=== PATIENT | female | born 1985 | race Caucasian/White ===

== ENCOUNTER 2017-09-19 12:57 | Emergency (ER) | payer OTHER, SELFPAY | END 2017-09-19 15:48 | disposition home or self-care (01) | PROVIDERS: Emergency Provider Emergency Medicine; Family Provider Emergency Medicine; Visit Provider Emergency Medicine | DX: I80.01 Phlebitis and thrombophlebitis of superficial vessels of right lower extremity (principal); J45.909 Unspecified asthma, uncomplicated; F41.8 Other specified anxiety disorders; I10 Essential (primary) hypertension; Z88.0 Allergy status to penicillin; Z88.2 Allergy status to sulfonamides | CPT/HCPCS: 80053; 85025; 93971; 99283 ==

== ENCOUNTER 2017-10-07 09:43 | Emergency (ER) | payer MEDICAID, SELFPAY ==
[2017-10-07 09:50] VITALS: BP 103/50; PULSE 80; RESP 20; TEMP 36.6; O2SAT 98; BMI 30.4
--- NOTE | 2017-10-07 09:59 | XR_ITS ---
XR chest 2V HISTORY: ITS.REASON: COUGH ORDERING PHYSICIAN: Silvina Liu MD PATIENT AGE: 32 years COMPARISON: To 1017 FINDINGS: The cardiomediastinal silhouette and pulmonary vascularity are within normal limits. Increased density is present in right upper lobe with air bronchograms consistent with pneumonia. The remaining lungs are clear aside from a granuloma in the left lower lobe. No obvious effusion. Mild adjacent change thoracic spine. IMPRESSION: Right upper lobe pneumonia In the right upper lobe consistent with pneumonia..
--- NOTE | 2017-10-07 10:03 | HMH.EDGENADL ---
ED Disposition Clinical Impression: Strep pharyngitis Disposition: Home, Self-Care Condition on Discharge: Good Instructions: DI for Strep Throat Additional Instructions: Small and frequent sips of fluids, Rx Keflex (you state you have tolerated this medication in the past) and see your family doctor in one week. Prescriptions: cephALEXin [Keflex 500mg Cap] 500 mg PO QID #40 cap Time of Disposition: 10:54 - Critical Care Critical Care Time: No Attestation: On , the high probability of a clinically significant, sudden or life threatening deterioration of the following system(s) required my full and direct attention, intervention and personal management. The time I documented below is in addition to time spent performing reported procedures but includes the following listed in this critical care notation. Medical Decision Making - Medical Records Medical records reviewed: Yes: I reviewed the patient's medical records. Vital Signs: 10/07/17 09:50 Temperature 97.9 F Temperature Source Oral Pulse Rate [Right Radial] 80 Respiratory Rate 20 Blood Pressure [Right Arm] 103/50 Blood Pressure Mean [Right Arm] 67 02 Sat by Pulse Oximetry 98 Oxygen Delivery Method Room Air - Lab Data Lab results reviewed: Yes: I reviewed the patient's lab results. Lab Results 10/07/17 10:00: Influenza Type A Ag Negative, Influenza Type B Ag Negative, Group A Strep Rapid Positive A Orders (Tests/Meds): ED MEDICATIONS Generic Name Dose Route Start Last Admin Trade Name Freq PRN Reason Stop Dose Admin Sodium Chloride 10 ml 10/07/17 10:11 Saline Flush 10ml Syringe IV 11/06/17 10:10 NEEDED PRN Maintain IV Site Discontinued Medications Generic Name Dose Route Start Last Admin Trade Name Freq PRN Reason Stop Dose Admin Dexamethasone Sodium Phosphate 10 mg 10/07/17 10:11 10/07/17 10:33 Decadron 4mg/Ml 5ml Mdv IM 10/07/17 10:12 10 mg ONCE ONE Administration ORDERS Category Date Time Status Chest XR 2 view (NOT portable) [XR chest 2V] Stat Exams 10/07/17 09:59 Taken - Radiology Data #1 Image(s): Chest Image Reviewed: Yes I reviewed the patient's radiology image Preliminary Findings: Normal/NAD, No Infiltrates Seen - Alfredo Inquiry Pt receiving controlled substance: No General Adult HPI - General Chief complaint: PAIN Stated complaint: can't swallow eat or drink Time Seen by Provider: 10/07/17 10:05 Mode of Arrival: Ambulatory Limitations: No Limitations Description of Symptoms (Recalled from ER Triage Doc. by RN): sore throat and prod cough x 2days - History of Present Illness HPI narrative: Sore throat, mild cough, no myalgias, no chills. No neck pain or vomiting. No fever. Hurts when she drinks fluids. No drooling. No cephalgia. - Related Data Previous Rx's Medication Instructions Recorded cephALEXin [Keflex 500mg Cap] 500 mg PO QID #40 cap 10/07/17 Allergies Allergy/AdvReac Type Severity Reaction Status Date / Time aspirin [ASPIRIN] Allergy Unknown Verified 10/07/17 10:03 iodine [IODINE] Allergy Unknown Verified 10/07/17 10:03 labetalol [LABETALOL] Allergy Unknown Verified 10/07/17 10:03 Penicillins [PENICILLINS] Allergy Unknown Verified 10/07/17 10:03 Sulfa (Sulfonamide Allergy Unknown Verified 10/07/17 10:03 Antibiotics) [SULFA (SULFONAMIDE ANTIBIOTICS)] triamcinolone [TRIAMCINOLONE] Allergy Unknown Verified 10/07/17 10:03 SHELLFISH (FOOD) Allergy Unknown I-HIVES Uncoded 09/16/17 15:01 ROS Obtained: Yes All systems reviewed & no additional complaints Physical Exam - General General appearance: alert, in no apparent distress, obese - Head Head exam: atraumatic, normocephalic, normal inspection - Eye Eye exam: Present: normal appearance, PERRL, EOMI - ENT ENT exam: Present: mucous membranes moist, TM's normal bilaterally, normal external ear exam, other (Positive erythema, no exudates. No lymphad
--- NOTE | 2017-10-07 10:08 | ED_ITS ---
ED Disposition Clinical Impression: Strep pharyngitis Disposition: Home, Self-Care Condition on Discharge: Good Instructions: DI for Strep Throat Additional Instructions: Small and frequent sips of fluids, Rx Keflex (you state you have tolerated this medication in the past) and see your family doctor in one week. Prescriptions: cephALEXin [Keflex 500mg Cap] 500 mg PO QID #40 cap Time of Disposition: 10:54 - Critical Care Critical Care Time: No Attestation: On , the high probability of a clinically significant, sudden or life threatening deterioration of the following system(s) required my full and direct attention, intervention and personal management. The time I documented below is in addition to time spent performing reported procedures but includes the following listed in this critical care notation. Medical Decision Making - Medical Records Medical records reviewed: Yes: I reviewed the patient's medical records. Vital Signs: 10/07/17 09:50 Temperature 97.9 F Temperature Source Oral Pulse Rate [Right Radial] 80 Respiratory Rate 20 Blood Pressure [Right Arm] 103/50 Blood Pressure Mean [Right Arm] 67 02 Sat by Pulse Oximetry 98 Oxygen Delivery Method Room Air - Lab Data Lab results reviewed: Yes: I reviewed the patient's lab results. Lab Results 10/07/17 10:00: Influenza Type A Ag Negative, Influenza Type B Ag Negative, Group A Strep Rapid Positive A Orders (Tests/Meds): ED MEDICATIONS Generic Name Dose Route Start Last Admin Trade Name Freq PRN Reason Stop Dose Admin Sodium Chloride 10 ml 10/07/17 10:11 Saline Flush 10ml Syringe IV 11/06/17 10:10 NEEDED PRN Maintain IV Site Discontinued Medications Generic Name Dose Route Start Last Admin Trade Name Freq PRN Reason Stop Dose Admin Dexamethasone Sodium Phosphate 10 mg 10/07/17 10:11 10/07/17 10:33 Decadron 4mg/Ml 5ml Mdv IM 10/07/17 10:12 10 mg ONCE ONE Administration ORDERS Category Date Time Status Chest XR 2 view (NOT portable) [XR chest 2V] Stat Exams 10/07/17 09:59 Taken - Radiology Data #1 Image(s): Chest Image Reviewed: Yes I reviewed the patient's radiology image Preliminary Findings: Normal/NAD, No Infiltrates Seen - Alfredo Inquiry Pt receiving controlled substance: No General Adult HPI - General Chief complaint: PAIN Stated complaint: can't swallow eat or drink Time Seen by Provider: 10/07/17 10:05 Mode of Arrival: Ambulatory Limitations: No Limitations Description of Symptoms (Recalled from ER Triage Doc. by RN): sore throat and prod cough x 2days - History of Present Illness HPI narrative: Sore throat, mild cough, no myalgias, no chills. No neck pain or vomiting. No fever. Hurts when she drinks fluids. No drooling. No cephalgia. - Related Data Previous Rx's Medication Instructions Recorded cephALEXin [Keflex 500mg Cap] 500 mg PO QID #40 cap 10/07/17 Allergies Allergy/AdvReac Type Severity Reaction Status Date / Time aspirin [ASPIRIN] Allergy Unknown Verified 10/07/17 10:03 iodine [IODINE] Allergy Unknown Verified 10/07/17 10:03 labetalol [LABETALOL] Allergy Unknown Verified 10/07/17 10:03 Penicillins [PENICI
[2017-10-07 10:15] LABS: Strep Scrn Group A (Rapid) Positive (Negative)
[2017-10-07 10:58] VITALS: BP 128/65; PULSE 80; RESP 16; TEMP 36.8; O2SAT 97
== END 2017-10-07 10:57 | disposition home or self-care (01) ==
PROVIDERS: Emergency Provider Emergency Medicine; Family Provider Emergency Medicine; PCP Emergency Medicine
DX: J02.0 Streptococcal pharyngitis (principal)
CPT/HCPCS: 71046; 87275; 87276; 87430; 96372; 99283

== ENCOUNTER → 2017-12-25 07:48 | Outpatient (CLI) | payer MEDICAID, SELFPAY ==
--- NOTE | 2017-12-25 07:50 | CA_ITS ---
PROCEDURE: 2-D M-mode and color Doppler study INDICATIONS FOR THE TEST: Chest pain COPD Heart Murmur Tobacco Smoking Palpitations Fatigue Syncope Edema+ Hypertension+Diabetes Mellitus Rheumatic Fever SOB MCNAMARA Obesity Hyperlipidemia Family History HD Additional History PATIENT INFORMATION HEIGHT:68 WEIGHT:311 GENDER: Female B/P:116/47 2-D/M-MODE INTERPRETATION: 2-D MEASUREMENTS OBSERVED VALUES IN CMS Right Ventricular Dimension (RVDd) 1.4 Interventricular Septum (Thickness)(IVsd) 0.9 Left Ventricular Internal Dimensions(LVIDd) 4.8 Left Ventricular Posterior Wall (Thickness)(LVPWd) 1.1 Aortic Root 2.8 Aortic Cusp Separation 2.0 Left Atrial Dimensions (LAD) 4.5 2D 1. Left atrium is qualitatively mildly enlarged, left ventricle is normal size, visually estimated ejection fraction 55% with no obvious regional wall motion abnormality. 2. The right atrium and right ventricle are normal size and contractility. 3. The aortic, mitral and tricuspid valve are grossly normal. 4. The pulmonic valve is poorly visualized. 5. No significant pericardial effusion noted. DOPPLER INTERROGATION: Doppler interrogation of the aortic, mitral and tricuspid valvular presence of mild mitral and tricuspid regurgitation, tricuspid and jet velocity insufficient for calculation of the right ventricular systolic pressure. Diastolic parameters are within normal range. CONCLUSION: 1. Mildly enlarged left atrium, normal left ventricular size, visually estimated ejection fraction 55% with no obvious regional wall motion abnormality. 2. Mild mitral and tricuspid regurgitation 3. No significant pericardial effusion noted.
--- NOTE | 2017-12-25 07:50 | AS_ITS ---
Renal Arterial Duplex Indications: 405.91 Unspecified renovascular hypertension. IMPRESSIONS 1. The right renal artery appears normal. 2. The left renal artery appears normal. Complete renal arterial duplex. Duplex scan and Doppler flow study including spectral analysis, color and calzada scale imaging. Height: Height: 172.7cm. Height: 68in. Weight: Weight: 125.2kg. Weight: 275.4lb. Body mass index: BMI: 42kg/m^2. Body surface area: BSA: 2.51m^2. Location: Vascular laboratory. Patient status: Outpatient. Tables: Arterial flow: + +--------+--------+ Location V sys V ed + +--------+--------+ Right renal - proximal 155cm/s 56.6cm/s + +--------+--------+ Right renal - mid 171cm/s 53.8cm/s + +--------+--------+ Right renal - distal 135cm/s 50.8cm/s + +--------+--------+ Left renal - proximal 179cm/s 64.2cm/s + +--------+--------+ Left renal - mid 166cm/s 57.5cm/s + +--------+--------+ Left renal - distal 81.5cm/s 35.2cm/s + +--------+--------+ Right renal - Origin 120cm/s 40cm/s + +--------+--------+ Left renal - Origin 203cm/s 51cm/s + +--------+--------+ Aorta - mid 118cm/s 26cm/s + +--------+--------+ Renal anatomy: + +------+------+ Left Right + +------+------+ Long axis 10.5cm 11.6cm + +------+------+ Short axis 5.7cm 5.9cm + +------+------+ Velocity ratios: + +-----+ V sys + +-----+ Right renal/aortic 1.4 + +-----+ Left renal/aortic 1.7 + +-----+ (Report amended ) Electronically signed by: Mason Louise [id number]
== END ==
PROVIDERS: Family Provider Emergency Medicine; PCP Emergency Medicine; Visit Provider Internal Medicine
DX: E66.9 Obesity, unspecified (principal); R06.09 Other forms of dyspnea; E78.4 Other hyperlipidemia; I10 Essential (primary) hypertension; R42 Dizziness and giddiness
CPT/HCPCS: 93306; 93976

== ENCOUNTER → 2018-02-27 10:29 | Outpatient (CLI) | payer MEDICAID, SELFPAY ==
[2018-02-27 10:57] LABS: Basophils % 0.4 % (0.1-2.0); Eosinophils # 0.1 K/mm3 (0.0-0.4); Eosinophils % 0.9 % (0.1-12.0); Hemoglobin 12.5 g/dL (12.2-16.2); Lymphocytes # 2.4 K/mm3 (0.7-4.5); Lymphocytes % 27.2 K/mm3 (10-50); Mean Corpuscular HGB Conc 32.9 g/dL (31.8-35.4); Mean Corpuscular Hemoglobin 27.9 pg (27.0-31.2); Mean Corpuscular Volume 84.9 fl (81-99); Monocytes # 0.3 K/mm3 (0.1-1.0); Monocytes % 3.4 % (1.7-9.3); Neutrophils % 68.1 % (37.0-80.0); Platelet Count 359 K/mm3 (142-424); Red Blood Count 4.47 M/mm3 (4.20-5.40); Red Cell Distribution Width 12.2 % (11.5-17.5); White Blood Count 8.8 K/mm3 (4.8-10.8)
[2018-02-27 11:57] LABS: Alanine Aminotransferase 33 U/L (12-78); Albumin Level 3.7 gm/dL (3.4-5.0); Alkaline Phosphatase 74 U/L (46-116); Anion Gap 14.4 mEq/L (5-15); Aspartate Amino Transferase 26 U/L (15-37); Bilirubin,Total 0.2 mg/dL (0.2-1.0); Blood Urea Nitrogen 19 mg/dL (7-18); C-Reactive Protein 1.8 mg/L (0.0-0.9); Calcium 9.2 mg/dL (8.5-10.1); Carbon Dioxide 25 mmol/L (21.0-32.0); Chloride 105 mmol/L (98-107); Creatinine,Serum 1.26 mg/dL (0.55-1.02); Estimated Glomerular Filt Rate 49 ml/min (>60); GFR (African American) 59 ML/MIN (>60); Globulin 3.7 gm/dl (1.3-3.2); Glucose 92 mg/dL (74-106); Potassium 4.4 mmoL/L (3.5-5.1); Sodium 140 mmol/L (136-145); Total Protein,Serum 7.4 gm/dL (6.4-8.2); Uric Acid 7.8 mg/dL (2.6-7.2)
[2018-02-27 12:06] LABS: Erythrocyte Sedimentation Rate 22 mm/hr (0-20)
[2018-02-28 18:34] LABS: RA Latex Turbid. <10.0 IU/mL (0.0-13.9)
[2018-03-01 17:29] LABS: Anti-Cyclic Citrullinated Pept 5 units (0-19)
[2018-03-02 14:20] LABS: Anti-Jo-1 <0.2 AI (0.0-0.9); Anti-Smith Antibody <0.2 AI (0.0-0.9); Antichromatin Antibodies <0.2 AI (0.0-0.9); Antiscleroderma-70 Antibodies <0.2 AI (0.0-0.9); RNP Antibodies <0.2 AI (0.0-0.9); Sjogren's Anti-SS-A <0.2 AI (0.0-0.9); Sjogren's Anti-SS-B <0.2 AI (0.0-0.9)
[2018-03-03 06:10] LABS: Anti-Centromere B Antibodies <0.2 AI (0.0-0.9); Anti-DNA (DS) Ab Qn 1 IU/mL (0-9)
[2018-03-03 14:38] LABS: Antinuclear Antibodies, IFA Negative (.)
== END ==
PROVIDERS: Family Provider Emergency Medicine; PCP Emergency Medicine; Visit Provider Podiatrist
DX: M79.671 Pain in right foot (principal); M79.672 Pain in left foot
CPT/HCPCS: 36415; 80053; 84550; 85025; 85651; 86038; 86140; 86200; 86431

== ENCOUNTER → 2018-02-27 10:46 | Outpatient (CLI) | payer MEDICAID, SELFPAY ==
--- NOTE | 2018-02-27 10:52 | XR_ITS ---
XR ankle wt bearing RT min 3V HISTORY: ITS.REASON: pain ORDERING PHYSICIAN: Cassandra Lange DPM PATIENT AGE: 32 years Comparison: None FINDINGS: No fracture or dislocation. No lytic or blastic change. There is normal mineralization.. The joint spaces are well-preserved. No significant degenerative/arthritic changes. No erosive changes evident. IMPRESSION: Negative ankle, no acute finding
--- NOTE | 2018-02-27 10:52 | XR_ITS ---
XR foot wt bearing LT 3V HISTORY: ITS.REASON: pain ORDERING PHYSICIAN: Cassandra Lange DPM PATIENT AGE: 32 years COMPARISON: None FINDINGS: No fracture or dislocation. No lytic or blastic change. There is normal mineralization.. The joint spaces are well-preserved. No significant degenerative/arthritic changes. No erosive changes evident. There is a 9 mm calcaneal spur nonspecific IMPRESSION: Calcaneal spur otherwise negative
--- NOTE | 2018-02-27 10:52 | XR_ITS ---
XR foot wt bearing RT 3V HISTORY: ITS.REASON: pain ORDERING PHYSICIAN: Cassandra Lange DPM PATIENT AGE: 32 years COMPARISON: None FINDINGS: No fracture or dislocation. No lytic or blastic change. There is normal mineralization.. The joint spaces are well-preserved. No significant degenerative/arthritic changes. No erosive changes evident. 6 mm calcaneal spur nonspecific IMPRESSION: Small calcaneal spur otherwise negative
--- NOTE | 2018-02-27 10:52 | XR_ITS ---
XR ankle wt bearing LT min 3V HISTORY: ITS.REASON: pain ORDERING PHYSICIAN: Cassandra Lange DPM PATIENT AGE: 32 years Comparison: None FINDINGS: No fracture or dislocation. No lytic or blastic change. There is normal mineralization.. The joint spaces are well-preserved. No significant degenerative/arthritic changes. No erosive changes evident. Calcification is present at the tip of the medial malleolus and could be due to an old avulsion injury. Not significant change from 11/20/2016 IMPRESSION: 1. No acute finding. 2. Accessory center of ossification versus old avulsion injury at the tip of the medial malleolus
== END ==
PROVIDERS: PCP Internal Medicine Adolescent Medicine; Visit Provider Podiatrist
DX: M79.672 Pain in left foot (principal); M79.671 Pain in right foot; M25.572 Pain in left ankle and joints of left foot
CPT/HCPCS: 73610; 73630

== ENCOUNTER 2018-06-24 10:31 | Observation (INO) ==
[2018-06-24 10:49] LABS: Basophils # 0.1 K/mm3 (0-0.2); Basophils % 0.6 % (0.1-2.0); Eosinophils % 0.4 % (0.1-12.0); Hematocrit 41.7 % (37.0-47.0); Lymphocytes # 2.7 K/mm3 (0.7-4.5); Lymphocytes % 30.1 K/mm3 (10-50); Mean Corpuscular HGB Conc 33.5 g/dL (31.8-35.4); Mean Corpuscular Hemoglobin 27.9 pg (27.0-31.2); Mean Corpuscular Volume 83.4 fl (81-99); Mean Platelet Volume 6.7 fl (7.4-10.4); Monocytes # 0.4 K/mm3 (0.1-1.0); Monocytes % 4.8 % (1.7-9.3); Neutrophils # 5.7 K/mm3 (1.8-7.8); Neutrophils % 64.2 % (37.0-80.0); Platelet Count 407 K/mm3 (142-424); Red Cell Distribution Width 12.6 % (11.5-17.5); White Blood Count 8.8 K/mm3 (4.8-10.8)
--- NOTE | 2018-06-24 10:49 | Emergency Department Note ---
ED Disposition Clinical Impression: ONIEL (acute kidney injury), Chest pain Disposition: Still a Patient Condition on Discharge: Good Referrals: Lemuel Martinez MD [Primary Care Provider] - - Critical Care Critical Care Time: No Attestation: On , the high probability of a clinically significant, sudden or life threatening deterioration of the following system(s) required my full and direct attention, intervention and personal management. The time I documented below is in addition to time spent performing reported procedures but includes the following listed in this critical care notation. Medical Decision Making - Medical Records MR Comment: 1236 calling about ddimer result pending. 136pm ddimer back, negative, pt with oniel, ua pending, bp was 94, usually 200 per patient with chest pain, ekg nonspecific troponin ok. plan admit, hydrate, recheck creatinine, rule out cardiac. call out to Michelle. 150pm dylan Martinez he states they sent termination letter in April, no longer thier patient. call out to Service . 158pm dylan Ray MD, observation. - Alfredo Inquiry Pt receiving controlled substance: No Vital Signs: 06/24/18 10:32 06/24/18 12:17 Temperature 98.0 F Temperature Source Oral Pulse Rate [Right Brachial] 78 58 L Respiratory Rate 16 Blood Pressure [Right Arm] 138/91 114/60 Blood Pressure Mean [Right Arm] 106 78 Blood Pressure Source [Right Arm] Automatic Cuff Automatic Cuff Blood Pressure Position [Right Arm] Sitting Sitting 02 Sat by Pulse Oximetry 98 99 Oxygen Delivery Method Room Air Room Air - Lab Data Lab Results 06/24/18 10:36: WBC 8.8, RBC 5.00, Hgb 14.0, Hct 41.7, MCV 83.4, MCH 27.9, MCHC 33.5, RDW 12.6, Plt Count 407, MPV 6.7 L, Neut % (Auto) 64.2, Lymph % (Auto) 30.1, [place] % (Auto) 4.8, Eos % (Auto) 0.4, Baso % (Auto) 0.6, Neut # (Auto) 5.7, Lymph # (Auto) 2.7, [place] # (Auto) 0.4, Eos # (Auto) 0.0, Baso # (Auto) 0.1 06/24/18 10:36: Troponin I < 0.02 06/24/18 10:36: Sodium 139, Potassium 4.3, Chloride 101, Carbon Dioxide 29, Anion Gap 13.3, BUN 20 H, Creatinine 2.11 H, Estimated Creat Clear 37, Estimated GFR 27 L, Est GFR ( Amer) 32 L, Glucose 94, Calcium 10.0 06/24/18 10:36: B-Natriuretic Peptide < 5 06/24/18 10:36: PT 10.0, INR 0.97, D-Dimer 337 06/24/18 10:36: Lactate Dehydrogenase 228 Result diagrams: 06/24/18 10:36 06/24/18 10:36 Orders (Tests/Meds): ED MEDICATIONS Discontinued Medications Generic Name Dose Route Start Last Admin Trade Name Freq PRN Reason Stop Dose Admin Sodium Chloride 1,000 mls @ 999 mls/hr 06/24/18 10:45 06/24/18 10:57 Sod Chlor 0.9% 1000ml Bag IV 06/24/18 11:45 999 mls/hr .Q1H1M ILIANA Administration Morphine Sulfate 4 mg 06/24/18 10:45 06/24/18 10:56 Morphine 4mg/Ml Syringe IV 06/24/18 10:46 4 mg ONCE ONE Administration Ondansetron HCl 4 mg 06/24/18 10:45 06/24/18 10:56 Zofran 4mg/2ml Vial IV 06/24/18 10:46 4 mg ONCE ONE Administration ORDERS Category Date Time Status Urinalysis and Microscopic Stat Lab 06/24/18 10:44 Ordered Blood Culture Stat Micro 06/24/18 11:15 Received - ECG Data Tracing #1 ER EKG read by myself shows sinus bradycardia rhythm rate of 58, normal axis, no QT prolongation, nonspecific EKG General Adult HPI - General Chief complaint: Chest Pain Stated complaint: chest pain x3 days Time Seen by Provider: 06/24/18 10:46 Mode of Arrival: Ambulatory Limitations: No Limitations Description of Symptoms (Recalled from ER Triage Doc. by RN): pt presents after having chest pain x3 days; dizziness - History of Present Illness HPI narrative: Patient complains of chest pain pleuritic for the past 3 days radiates down her left arm is associated with nausea and vomiting. Has shortness of breath denies fever chills or cough denies abdominal pain she states she has chronic leg pain. States her blood pressure has been high in the 200s, currently is 94 sbp - Related Data Home Medications Medication Instructions Recorded Confirmed cetirizine 10 mg capsule 10 mg PO DAILY cap 12/15/17 06/24/18 famotidine 40 mg tablet 40 mg PO QHS 12/15/17 06/24/18 sertraline 100 mg tablet 100 mg PO DAILY tab 12/15/17 06/24/18 trazodone 100 mg tablet 200 mg PO QHS PRN tab 12/15/17 06/24/18 albuterol sulfate HFA 90 1 spray INHALATION DAILY 16 Days 02/26/18 06/24/18 mcg/actuation aerosol inhaler #18 aripiprazole 5 mg tablet 15 mg PO DAILY tab 02/26/18 06/24/18 fluticasone furoate 100 1 spray INHALATION DAILY 30 Days 02/26/18 06/24/18 mcg/actuation blister powder for #30 inhalation aripiprazole 15 mg tablet 1 tab PO DAILY 30 Days #30 05/04/18 06/24/18 beclomethasone diprop 40 1 puff INHALATION BID 05/04/18 06/24/18 mcg/actuation HFA breath activated aerosol Bisoprolol Fumarate [Bisoprolol 10 mg PO DAILY 06/24/18 06/24/18 10mg Tablet] Clindamycin HCl [Cleocin HCl] 300 mg PO Q6H 06/24/18 06/24/18 Lisinopril/Hydrochlorothiazide 2 tab PO DAILY 06/24/18 06/24/18 [Lisinopril-Hctz 20-12.5 mg Tab] Norgestrel-Ethinyl Estradiol 1 tab PO ONCE 06/24/18 06/24/18 [Cryselle-28 Tablet] Previous Rx's Medication Instructions Recorded diclofenac 1 % topical gel 4 g TOPICAL QID #30 g 02/26/18 Allergies Allergy/AdvReac Type Severity Reaction Status Date / Time aspirin [ASPIRIN] Allergy Unknown Verified 05/04/18 13:07 iodine [IODINE] Allergy Unknown Verified 05/04/18 13:07 labetalol [LABETALOL] Allergy Unknown Verified 05/04/18 13:07 Penicillins [PENICILLINS] Allergy Unknown Verified 05/04/18 13:07 Sulfa (Sulfonamide Allergy Unknown Verified 05/04/18 13:07 Antibiotics) [SULFA (SULFONAMIDE ANTIBIOTICS)] triamcinolone [TRIAMCINOLONE] Allergy Unknown Verified 05/04/18 13:07 SHELLFISH (FOOD) Allergy Unknown I-HIVES Uncoded 02/26/18 16:38 [facility] History I have reviewed the patient's past medical history: Yes Medical History: Reports:: Anxiety, Asthma, Hyperlipidemia, Hypertension Denies:: Internal Pacemaker Other Surgeries: Yes: Cholecystectomy. No: Pacemaker Amputation: No Fractures: No - Social History Educational Level: Completed High School Smoking Status: Never smoker Alcohol Intake: never Alcohol Intake Frequency:: other Substance Use Type: denies use Occupational Status: unemployed Housing: house - Psychiatric History Expresses thoughts of harming self/others: None Suicide Plan Description: No Plan Pschychiatric History:: Reports:: Anxiety Family Hx:: Coronary Artery Disease ROS Obtained: Yes All systems reviewed & no additional complaints Physical Exam General Appearance: Nontoxic morbidly obese Head: Normocephalic, without obvious abnormality, atraumatic. Eyes: conjunctiva/corneas clear ENT: Mucous membranes moist. Neck: No jugular venous distention. Cardiac: regular rate and rhythm Lungs: distant Clear to auscultation bilaterally Abdomen: Nontender, Nondistended, positive bowel sounds, no rebound : No CVA tenderness Extremities: no edema Musculoskeletal: No chest wall tenderness Bilateral calf tenderness but patient states her legs are always tender Skin: No rashes or lesions to exposed skin. Neurologic: Alert. No gross focal deficits Psychiatric: Normal affect - General General appearance: alert - Respiratory Respiratory exam: Present: normal lung sounds bilaterally - Cardiovascular Cardiovascular exam: Present: regular rate - Neurological Exam Neurological exam: Present: alert
[2018-06-24 11:00] LABS: Anion Gap 13.3 mEq/L (5-15)
[2018-06-24 11:03] LABS: INR 0.97 (0.9-1.1); Potassium 4.3 mmoL/L (3.5-5.1)
[2018-06-24 14:39] LABS: Microscopic, Urine URINE MICROSCOPIC (MICROSCOPIC)
[2018-06-24 14:44] LABS: Appearance,Urine CLEAR (Clear); Bilirubin,Urine Negative (Negative); Blood, Urine 1+ (Negative); Color,Urine YELLOW (Yellow); Glucose,Urine (UA) Negative (Negative); Ketones,Urine Negative (Negative); Leukocyte Esterase,Urine Negative (Negative); Protein,Urine Negative (Negative); Urobilinogen,Urine 0.2 EU/dl (0.2)
[2018-06-24 14:53] LABS: Bacteria,Urine 2+ /lpf; RBC,Urine Occasional #/hpf (0-3)
--- NOTE | 2018-06-24 15:05 | Pharmacy Consult Notes ---
[facility] Pharmacy VTE Monitoring - Patient Demographics Admission date: 06/24/18 Report Date: 06/24/18 Time: 15:05 Allergies/Adverse Reactions: Patient Allergies aspirin [ASPIRIN] Allergy (Unknown, Verified 05/04/18 13:07) iodine [IODINE] Allergy (Unknown, Verified 05/04/18 13:07) labetalol [LABETALOL] Allergy (Unknown, Verified 05/04/18 13:07) Penicillins [PENICILLINS] Allergy (Unknown, Verified 05/04/18 13:07) Sulfa (Sulfonamide Antibiotics) [SULFA (SULFONAMIDE ANTIBIOTICS)] Allergy (Unknown, Verified 05/04/18 13:07) triamcinolone [TRIAMCINOLONE] Allergy (Unknown, Verified 05/04/18 13:07) SHELLFISH (FOOD) Allergy (Unknown, Uncoded 02/26/18 16:38) I-HIVES Height: 1.7 m Weight: 137.438 kg Patient Problems: Current Active Problems ONIEL (acute kidney injury) (Acute) Chest pain (Acute) - VTE Risk Labs: VTE Related Lab Results Hgb 14.0 g/dL (12.2-16.2) 06/24/18 10:36 Hct 41.7 % (37.0-47.0) 06/24/18 10:36 Plt Count 407 K/mm3 (142-424) 06/24/18 10:36 PT 10.0 seconds (9.4-11.8) 06/24/18 10:36 INR 0.97 (0.9-1.1) 06/24/18 10:36 BUN 20 mg/dL (7-18) H 06/24/18 10:36 Creatinine 2.11 mg/dL (0.55-1.02) H 06/24/18 10:36 Estimated Creat Clear 37 mL/min (0-300) 06/24/18 10:36 Clinical Trial Participant: No - Prophylaxis VTE Prophylaxis Ordered?: Yes Types of VTE Prophylaxis: TEDS Knee High
--- NOTE | 2018-06-24 15:18 | History & Physical Report ---
Addendum entered and electronically signed by Bekah Plunkett APRN 06/24/18 16:19: possible UTI and will start Rocephin; repeat CBC and CMP in the AM Original Note: *Admission Date: 06/24/18 *Chief complaint: Chest pain *History of present illness: Briseyda is a 32-year-old female with a history of hypertension and asthma who presented to [facility] emergency room after not feeling well for about 3 weeks and worse the last 3 days. She describes midsternal chest pain, some shortness of breath, nausea,. She states the chest pain was sharp in nature and radiated down her left arm. She has had some cough and the pain is worse in her chest on deep inspiration. She also describes passing out twice last evening with her as a witness. He states she was out for about 5 minutes but there was no loss of bowel or bladder control. She stated that her systolic blood pressure was around 200. In the emergency room she was given IV fluid bolus, IV morphine and Zofran. Troponin I was normal x1; electrolytes were normal; renal function was elevated, and BNP was normal. Chest x-ray did not show pneumonia. She was then admitted for further evaluation and treatment [facility] History Medical History: Reports:: Anxiety, Asthma, Heart Murmur, Hyperlipidemia, Hypertension, Palpitations Denies:: Diabetes Mellitus Type 2, Gastroesophageal Reflux Disease(GERD), Internal Pacemaker, Tuberculosis Other Surgeries: Yes: Cholecystectomy. No: Pacemaker Amputation: No Fractures: No - *Social History Educational Level: Completed High School Smoking Status: Never smoker Alcohol Intake: never Alcohol Intake Frequency:: other Substance Use Type: denies use Occupational Status: unemployed Housing: house - Psychiatric History Expresses thoughts of harming self/others: None Suicide Plan Description: No Plan Pschychiatric History:: Reports:: Anxiety *Family Hx:: Cancer, Coronary Artery Disease, Hypertension Review of Systems - Constitutional Reports headache(s), Denies fever(s) - Eyes Reports blurry vision - ENT Denies post nasal drip - *Cardiovascular Reports chest pain, Reports chest pain at rest, Reports chest pain with activity, Reports shortness of breath, Reports leg sores, Reports lightheadedness - *Respiratory Reports cough, Reports shortness of breath, Denies excessive phlegm production, Denies coughing up blood - *Gastrointestinal Reports abdominal pain, Reports nausea, Denies change in stools, Denies coffee ground vomit, Denies constipation, Denies loose stools, Denies heartburn, Denies incontinent of stools, Denies heartburn, Denies vomiting blood, Denies bright, red blood in stools, Denies black, tarry stools, Denies vomiting - *Genitourinary Comments: Dysuria - *Musculoskeletal Reports joint pain - *Neurologic Reports abnormal walking, Reports dizziness, Reports headache(s), Denies frequent falls Meds Home Medications Medication Instructions Recorded Confirmed Type cetirizine 10 mg capsule 10 mg PO DAILY cap 12/15/17 06/24/18 History famotidine 40 mg tablet 40 mg PO QHS 12/15/17 06/24/18 History sertraline 100 mg tablet 100 mg PO DAILY tab 12/15/17 06/24/18 History albuterol sulfate HFA 90 2 spray INHALATION Q4-6H PRN 16 02/26/18 06/24/18 History mcg/actuation aerosol inhaler Days #18 aripiprazole 5 mg tablet 15 mg PO DAILY tab 02/26/18 06/24/18 History fluticasone furoate 100 1 spray INHALATION DAILY 30 Days 02/26/18 06/24/18 History mcg/actuation blister powder for #30 inhalation aripiprazole 15 mg tablet 1 tab PO HS 30 Days #30 05/04/18 06/24/18 History beclomethasone diprop 40 1 puff INHALATION BID 05/04/18 06/24/18 History mcg/actuation HFA breath activated aerosol Bisoprolol Fumarate [Bisoprolol 10 mg PO DAILY 06/24/18 06/24/18 History 10mg Tablet] Clindamycin HCl [Cleocin HCl] 300 mg PO Q6H 06/24/18 06/24/18 History Fluticasone Propionate 2 sprays NS DAILY 06/24/18 06/24/18 History Lisinopril/Hydrochlorothiazide 2 tab PO DAILY 06/24/18 06/24/18 History [Lisinopril-Hctz 20-12.5 mg Tab] Montelukast Sodium [Montelukast 10 mg PO HS 06/24/18 06/24/18 History 10mg Tab] Norgestrel-Ethinyl Estradiol 1 tab PO DAILY 06/24/18 06/24/18 History [Cryselle-28 Tablet] Trazodone HCl 200 mg PO HS 06/24/18 06/24/18 History Allergies Allergy/AdvReac Type Severity Reaction Status Date / Time aspirin [ASPIRIN] Allergy Unknown Verified 05/04/18 13:07 iodine [IODINE] Allergy Unknown Verified 05/04/18 13:07 labetalol [LABETALOL] Allergy Unknown Verified 05/04/18 13:07 Penicillins [PENICILLINS] Allergy Unknown Verified 05/04/18 13:07 Sulfa (Sulfonamide Allergy Unknown Verified 05/04/18 13:07 Antibiotics) [SULFA (SULFONAMIDE ANTIBIOTICS)] triamcinolone [TRIAMCINOLONE] Allergy Unknown Verified 05/04/18 13:07 SHELLFISH (FOOD) Allergy Unknown I-HIVES Uncoded 02/26/18 16:38 Exam Vital signs and Labs for Last 24 Hours: Temp Pulse Resp BP Pulse Ox 98.1 F 83 17 125/79 99 06/24/18 14:55 06/24/18 14:55 06/24/18 14:55 06/24/18 14:55 06/24/18 12:17 Laboratory Results - last 24 hr 06/24/18 10:36: WBC 8.8, RBC 5.00, Hgb 14.0, Hct 41.7, MCV 83.4, MCH 27.9, MCHC 33.5, RDW 12.6, Plt Count 407, MPV 6.7 L, Neut % (Auto) 64.2, Lymph % (Auto) 30.1, [place] % (Auto) 4.8, Eos % (Auto) 0.4, Baso % (Auto) 0.6, Neut # (Auto) 5.7, Lymph # (Auto) 2.7, [place] # (Auto) 0.4, Eos # (Auto) 0.0, Baso # (Auto) 0.1 06/24/18 10:36: Troponin I < 0.02 06/24/18 10:36: Sodium 139, Potassium 4.3, Chloride 101, Carbon Dioxide 29, Anion Gap 13.3, BUN 20 H, Creatinine 2.11 H, Estimated Creat Clear 37, Estimated GFR 27 L, Est GFR ( Amer) 32 L, Glucose 94, Calcium 10.0 06/24/18 10:36: B-Natriuretic Peptide < 5 06/24/18 10:36: PT 10.0, INR 0.97, D-Dimer 337 06/24/18 10:36: Lactate Dehydrogenase 228 06/24/18 14:36: Urine Color Yellow, Urine Appearance Clear, Urine pH 6.0, Ur Specific [place] 1.010, Urine Protein Negative, Urine Glucose (UA) Negative, Urine Ketones Negative, Urine Blood 1+, Urine Nitrate Negative, Urine Bilirubin Negative, Urine Urobilinogen 0.2, Ur Leukocyte Esterase Negative, Urine RBC Occasional, Urine WBC 3-5, Ur Squamous Epith Cells 5-10, Urine Bacteria 2+ I & O for Last 24 hours: Intake & Output 06/22/18 06/23/18 06/24/18 06/25/18 11:59 11:59 11:59 11:59 Weight 303 lb 303 lb Radiology Reports for the Last 24 Hours: 06/24/2018 chest x-ray IMPRESSION: Negative chest, no acute finding Previously noted infiltrate in the right upper lobe has cleared - Constitutional no acute distress Comments: Sitting style on the stretcher. Appears comfortable. - *Routine HEENT Exam Head: Present: normocephalic, atraumatic Eye: Present: EOMI, PERRL, normal accommodation. Absent: conjunctival icterus, scleral injection ENT: Present: mucous membranes moist, oropharynx clear - *Routine Neck Exam Present: supple, full ROM. Absent: carotid bruit, lymphadenopathy, thyromegaly - Routine Chest/Breast/Axilla Exam Chest wall: Present: tenderness (Midsternal and left anterior) - *Routine Respiratory Exam Present: CTA bilaterally (Anteriorly and posteriorly) - *Routine Cardiovascular Exam Present: RRR Comments: Distant heart sounds - *Routine Abdominal Exam Present: soft, normoactive bowel sounds Comments: Mild tenderness diffuse; obese - *Routine Extremities Exam Present: calf tenderness (Bilateral wherever touched, no cords or masses). Absent: edema - *Routine Neurological Exam Present: alert, oriented X3, CN II-XII intact Assessment and Plan (1) Renal insufficiency Current visit: Yes Status: Acute Category: Medical Code(s): N28.9 - Disorder of kidney and ureter, unspecified (2) Syncope Current visit: Yes Status: Acute Category: Medical Code(s): R55 - Syncope and collapse (3) Chest pain Current visit: Yes Status: Acute Qualifiers: Category: Medical Code(s): R07.9 - Chest pain, unspecified (4) Hypertensive disorder Current visit: No Status: Chronic Qualifiers: Hypertension type: essential hypertension Qualified Code(s): I10 - Essenti al (primary) hypertension Category: Medical Code(s): I10 - Essential (primary) hypertension (5) Obesity Current visit: No Status: Chronic Qualifiers: Obesity type: unspecified obesity type Obesity classification: adult class 3 (BMI >= 40) Serious obesity comorbidity presence: without serious comorbidity Body mass index: BMI 45.0-49.9 Qualified Code(s): E66.9 - Obesity, unspecified; Z68.42 - Body mass index (BMI) 45.0-49.9, adult Category: Medical Code(s): E66.9 - Obesity, unspecified - Assessment and plan all Dx Assessment and Plan for all problems:: Will admit for observation. Some of home meds have been ordered. CTA of the est is pending. Will discuss with Dr. Ray as to further diagnostic test.
--- NOTE | 2018-06-24 15:20 | History & Physical Report ---
*Admission Date: 06/24/18 *Chief complaint: Chest pain *History of present illness: Ms. Rain is a 32-year-old female patient with a history of asthma, hypertension, COPD, presented to [facility] emergency room with 3 days duration of dizziness, nausea, cough, chest pain, shortness of breath and generally not feeling well. She had not been feeling well for approximately 3 weeks. She did not see her primary care physician because she had been discharged from his practice in April. Patient describes the chest pain is midsternal and sharp and constant. She has been able to sleep only at brief intervals. Pain occurs more with a deep breath and with palpation. She denied reflux and vomiting. With variation in the emergency room chest x-ray revealed a pneumonia. She was giving a bolus of IV fluids, IV morphine, and Zofran. White blood cell count was normal; renal function was elevated with a creatinine of 2.11, and troponin was normal. BNP was less than 5. Electrodes were normal. [facility] History Medical History: Reports:: Anxiety, Asthma, Hyperlipidemia, Hypertension Denies:: Internal Pacemaker Other Surgeries: Yes: Cholecystectomy. No: Pacemaker Amputation: No Fractures: No - *Social History Educational Level: Completed High School Smoking Status: Never smoker Alcohol Intake: never Alcohol Intake Frequency:: other Substance Use Type: denies use Occupational Status: unemployed Housing: house - Psychiatric History Expresses thoughts of harming self/others: None Suicide Plan Description: No Plan Pschychiatric History:: Reports:: Anxiety *Family Hx:: Coronary Artery Disease Meds Home Medications Medication Instructions Recorded Confirmed Type cetirizine 10 mg capsule 10 mg PO DAILY cap 12/15/17 06/24/18 History famotidine 40 mg tablet 40 mg PO QHS 12/15/17 06/24/18 History sertraline 100 mg tablet 100 mg PO DAILY tab 12/15/17 06/24/18 History albuterol sulfate HFA 90 2 spray INHALATION Q4-6H PRN 16 02/26/18 06/24/18 History mcg/actuation aerosol inhaler Days #18 aripiprazole 5 mg tablet 15 mg PO DAILY tab 02/26/18 06/24/18 History fluticasone furoate 100 1 spray INHALATION DAILY 30 Days 02/26/18 06/24/18 History mcg/actuation blister powder for #30 inhalation aripiprazole 15 mg tablet 1 tab PO HS 30 Days #30 05/04/18 06/24/18 History beclomethasone diprop 40 1 puff INHALATION BID 05/04/18 06/24/18 History mcg/actuation HFA breath activated aerosol Bisoprolol Fumarate [Bisoprolol 10 mg PO DAILY 06/24/18 06/24/18 History 10mg Tablet] Clindamycin HCl [Cleocin HCl] 300 mg PO Q6H 06/24/18 06/24/18 History Fluticasone Propionate 2 sprays NS DAILY 06/24/18 06/24/18 History Lisinopril/Hydrochlorothiazide 2 tab PO DAILY 06/24/18 06/24/18 History [Lisinopril-Hctz 20-12.5 mg Tab] Montelukast Sodium [Montelukast 10 mg PO HS 06/24/18 06/24/18 History 10mg Tab] Norgestrel-Ethinyl Estradiol 1 tab PO DAILY 06/24/18 06/24/18 History [Cryselle-28 Tablet] Trazodone HCl 200 mg PO HS 06/24/18 06/24/18 History Allergies Allergy/AdvReac Type Severity Reaction Status Date / Time aspirin [ASPIRIN] Allergy Unknown Verified 05/04/18 13:07 iodine [IODINE] Allergy Unknown Verified 05/04/18 13:07 labetalol [LABETALOL] Allergy Unknown Verified 05/04/18 13:07 Penicillins [PENICILLINS] Allergy Unknown Verified 05/04/18 13:07 Sulfa (Sulfonamide Allergy Unknown Verified 05/04/18 13:07 Antibiotics) [SULFA (SULFONAMIDE ANTIBIOTICS)] triamcinolone [TRIAMCINOLONE] Allergy Unknown Verified 05/04/18 13:07 SHELLFISH (FOOD) Allergy Unknown I-HIVES Uncoded 02/26/18 16:38 Exam Vital signs and Labs for Last 24 Hours: Temp Pulse Resp BP Pulse Ox 98.1 F 83 17 125/79 99 06/24/18 14:55 06/24/18 14:55 06/24/18 14:55 06/24/18 14:55 06/24/18 12:17 Laboratory Results - last 24 hr 06/24/18 10:36: WBC 8.8, RBC 5.00, Hgb 14.0, Hct 41.7, MCV 83.4, MCH 27.9, MCHC 33.5, RDW 12.6, Plt Count 407, MPV 6.7 L, Neut % (Auto) 64.2, Lymph % (Auto) 30.1, [place] % (Auto) 4.8, Eos % (Auto) 0.4, Baso % (Auto) 0.6, Neut # (Auto) 5.7, Lymph # (Auto) 2.7, [place] # (Auto) 0.4, Eos # (Auto) 0.0, Baso # (Auto) 0.1 06/24/18 10:36: Troponin I < 0.02 06/24/18 10:36: Sodium 139, Potassium 4.3, Chloride 101, Carbon Dioxide 29, Anion Gap 13.3, BUN 20 H, Creatinine 2.11 H, Estimated Creat Clear 37, Estimated GFR 27 L, Est GFR ( Amer) 32 L, Glucose 94, Calcium 10.0 06/24/18 10:36: B-Natriuretic Peptide < 5 06/24/18 10:36: PT 10.0, INR 0.97, D-Dimer 337 06/24/18 10:36: Lactate Dehydrogenase 228 06/24/18 14:36: Urine Color Yellow, Urine Appearance Clear, Urine pH 6.0, Ur Specific [place] 1.010, Urine Protein Negative, Urine Glucose (UA) Negative, Urine Ketones Negative, Urine Blood 1+, Urine Nitrate Negative, Urine Bilirubin Negative, Urine Urobilinogen 0.2, Ur Leukocyte Esterase Negative, Urine RBC Occ asional, Urine WBC 3-5, Ur Squamous Epith Cells 5-10, Urine Bacteria 2+ I & O for Last 24 hours: Intake & Output 06/22/18 06/23/18 06/24/18 06/25/18 11:59 11:59 11:59 11:59 Weight 303 lb 303 lb Radiology Reports for the Last 24 Hours: 06/24/2018 chest x-ray IMPRESSION: Negative chest, no acute finding Previously noted infiltrate in the right upper lobe has cleared - Constitutional no acute distress Comments: Patient sitting [place] style on stretcher. Appears in no acute distress. - *Routine HEENT Exam Head: Present: normocephalic, atraumatic ENT: Present: mucous membranes moist, oropharynx clear - *Routine Neck Exam Present: supple, full ROM. Absent: carotid bruit, lymphadenopathy, thyromegaly - *Routine Respiratory Exam Present: CTA bilaterally (Anteriorly and posteriorly) - *Routine Cardiovascular Exam Present: RRR - *Routine Abdominal Exam Present: soft, normoactive bowel sounds Comments: Diffusely mildly tender: Obese - *Routine Extremities Exam Absent: edema Comments: Bilateral lower leg pain wherever touched. - *Routine Neurological Exam Present: alert, oriented X3
[2018-06-25 07:16] LABS: Basophils # 0.1 K/mm3 (0-0.2); Basophils % 1.1 % (0.1-2.0); Eosinophils # 0.1 K/mm3 (0.0-0.4); Eosinophils % 1.9 % (0.1-12.0); Hematocrit 40.8 % (37.0-47.0); Hemoglobin 13.4 g/dL (12.2-16.2); Lymphocytes # 3.2 K/mm3 (0.7-4.5); Lymphocytes % 46.8 K/mm3 (10-50); Mean Corpuscular HGB Conc 32.9 g/dL (31.8-35.4); Mean Corpuscular Hemoglobin 28.1 pg (27.0-31.2); Mean Corpuscular Volume 85.5 fl (81-99); Mean Platelet Volume 6.8 fl (7.4-10.4); Monocytes # 0.3 K/mm3 (0.1-1.0); Monocytes % 4.7 % (1.7-9.3); Neutrophils # 3.1 K/mm3 (1.8-7.8); Neutrophils % 45.6 % (37.0-80.0); Platelet Count 364 K/mm3 (142-424); Red Blood Count 4.78 M/mm3 (4.20-5.40); Red Cell Distribution Width 12.6 % (11.5-17.5); White Blood Count 6.8 K/mm3 (4.8-10.8)
[2018-06-25 07:41] LABS: Albumin Level 3.6 gm/dL (3.4-5.0); Anion Gap 10.9 mEq/L (5-15); Bilirubin,Total 0.5 mg/dL (0.2-1.0); Globulin 3.6 gm/dl (1.3-3.2); Potassium 3.9 mmoL/L (3.5-5.1); Total Protein,Serum 7.2 gm/dL (6.4-8.2)
--- NOTE | 2018-06-25 08:10 | Progress Note ---
Internal Medicine - PN: Subj *Date: 06/25/18 *Time: 08:08 Interval history: Patient states the morphine made her chest pain go away last night however it has returned this morning. It is reproducible if you push on her chest. She denies any other pain. She states she slept well and ate some of her breakfast this morning. Exam Vital signs and Labs for Last 24 Hours: Temp Pulse Resp BP Pulse Ox 97.5 F L 53 L 14 87/37 99 06/25/18 04:00 06/25/18 04:00 06/25/18 04:00 06/25/18 04:00 06/25/18 04:00 Laboratory Results - last 24 hr 06/24/18 10:36: WBC 8.8, RBC 5.00, Hgb 14.0, Hct 41.7, MCV 83.4, MCH 27.9, MCHC 33.5, RDW 12.6, Plt Count 407, MPV 6.7 L, Neut % (Auto) 64.2, Lymph % (Auto) 30.1, [place] % (Auto) 4.8, Eos % (Auto) 0.4, Baso % (Auto) 0.6, Neut # (Auto) 5.7, Lymph # (Auto) 2.7, [place] # (Auto) 0.4, Eos # (Auto) 0.0, Baso # (Auto) 0.1 06/24/18 10:36: Troponin I < 0.02 06/24/18 10:36: Sodium 139, Potassium 4.3, Chloride 101, Carbon Dioxide 29, Anion Gap 13.3, BUN 20 H, Creatinine 2.11 H, Estimated Creat Clear 37, Estimated GFR 27 L, Est GFR ( Amer) 32 L, Glucose 94, Calcium 10.0 06/24/18 10:36: B-Natriuretic Peptide < 5 06/24/18 10:36: PT 10.0, INR 0.97, D-Dimer 337 06/24/18 10:36: Lactate Dehydrogenase 228 06/24/18 14:36: Urine Color Yellow, Urine Appearance Clear, Urine pH 6.0, Ur Specific [place] 1.010, Urine Protein Negative, Urine Glucose (UA) Negative, Urine Ketones Negative, Urine Blood 1+, Urine Nitrate Negative, Urine Bilirubin Negative, Urine Urobilinogen 0.2, Ur Leukocyte Esterase Negative, Urine RBC Occasional, Urine WBC 3-5, Ur Squamous Epith Cells 5-10, Urine Bacteria 2+ 06/24/18 17:12: Troponin I < 0.02 06/24/18 23:10: Troponin I < 0.02 06/25/18 06:30: WBC 6.8, RBC 4.78, Hgb 13.4, Hct 40.8, MCV 85.5, MCH 28.1, MCHC 32.9, RDW 12.6, Plt Count 364, MPV 6.8 L, Neut % (Auto) 45.6, Lymph % (Auto) 46.8, [place] % (Auto) 4.7, Eos % (Auto) 1.9, Baso % (Auto) 1.1, Neut # (Auto) 3.1, Lymph # (Auto) 3.2, [place] # (Auto) 0.3, Eos # (Auto) 0.1, Baso # (Auto) 0.1 I & O for Last 24 hours: Intake & Output 06/22/18 06/23/18 06/24/18 06/25/18 11:59 11:59 11:59 11:59 Intake Total 1126 / 1126 Output Total 300 / 300 Balance 826 / 826 Weight 303 lb 302 lb 8.011 oz Microbiology Reports for the Last 24 Hours: Microbiology 06/24/18 14:36 Urine,Clean Catch Urine Culture - Preliminary - Constitutional no acute distress - Routine Chest/Breast/Axilla Exam Chest wall: Present: tenderness (along sternum and costal cartilage, pain with deep breathing) - *Routine Respiratory Exam Present: CTA bilaterally - *Routine Cardiovascular Exam Present: RRR - *Routine Abdominal Exam Present: soft, normoactive bowel sounds. Absent: tenderness - *Routine Extremities Exam Absent: cyanosis, clubbing, edema Assessment and Plan (1) Renal insufficiency Current visit: Yes Status: Acute Category: Medical Code(s): N28.9 - Disorder of kidney and ureter, unspecified (2) Syncope Current visit: Yes Status: Acute Category: Medical Code(s): R55 - Syncope and collapse (3) Chest pain Current visit: Yes Status: Acute Qualifiers: Category: Medical Code(s): R07.9 - Chest pain, unspecified (4) Hypertensive disorder Current visit: No Status: Chronic Qualifiers: Hypertension type: essential hypertension Qualified Code(s): I10 - Essential (primary) hypertension Category: Medical Code(s): I10 - Essential (primary) hypertension (5) Obesity Current visit: No Status: Chronic Qualifiers: Obesity type: unspecified obesity type Obesity classification: adult class 3 (BMI >= 40) Serious obesity comorbidity presence: without serious comorbidity Body mass index: BMI 45.0-49.9 Qualified Code(s): E66.9 - Obesity, unspecified; Z68.42 - Body mass index (BMI) 45.0-49.9, adult Category: Medical Code(s): E66.9 - Obesity, unspecified - Assessment and plan all Dx Assessment and Plan for all problems:: Chest pain seems to be musculoskeletal in nature. Still awaiting renal function tests from the morning. Could possibly give a dose of steroids and see if this helps her chest pain. Will discuss with Dr. Ray.
[2018-06-25 08:46] LABS: Calcium 8.8 mg/dL (8.5-10.1)
[2018-06-26 06:52] LABS: Anion Gap 7.5 mEq/L (5-15); Calcium 9.2 mg/dL (8.5-10.1); Potassium 4.5 mmoL/L (3.5-5.1)
[2018-06-26 08:09] VITALS: BP 95/47
--- NOTE | 2018-06-26 08:09 | Progress Note ---
Internal Medicine - PN: Subj Interval history: The patient is resting quietly in bed, arouses easily to voice. She complains of bilateral low back pain "kidney pain" and reports she was not able to rest very well overnight. She ate all of her breakfast and now reports some nausea. She is ambulating to the BR without difficulty. Exam Vital signs and Labs for Last 24 Hours: Temp Pulse Resp BP Pulse Ox 97.6 F 48 L 16 132/64 94 L 06/26/18 04:00 06/26/18 04:00 06/26/18 04:00 06/26/18 04:00 06/26/18 04:00 Laboratory Results - last 24 hr 06/25/18 06:30: Sodium 138, Potassium 3.9, Chloride 101, Carbon Dioxide 30, Anion Gap 10.9, BUN 19 H, Creatinine 2.05 H, Estimated Creat Clear 39, Estimated GFR 28 L, Est GFR ( Amer) 34 L, Glucose 90, Calcium 8.8 D, Total Bilirubin 0.5, AST 31, ALT 36, Alkaline Phosphatase 74, Total Protein 7.2, Albumin 3.6, Globulin 3.6 H, Albumin/Globulin Ratio 1.0 L 06/26/18 06:05: Sodium 134 L, Potassium 4.5, Chloride 103, Carbon Dioxide 28, Anion Gap 7.5, BUN 22 H, Creatinine 1.54 H D, Estimated Creat Clear 52, Estimated GFR 39 L, Est GFR ( Amer) 47 L D, Glucose 106, Calcium 9.2 I & O for Last 24 hours: Intake & Output 06/23/18 06/24/18 06/25/18 06/26/18 11:59 11:59 11:59 11:59 Intake Total 1666 / 1666 3299 / 3299 Output Total 300 / 300 1100 / 1100 Balance 1366 / 1366 2199 / 2199 Weight 303 lb 302 lb 8.011 oz Microbiology Reports for the Last 24 Hours: Microbiology 06/24/18 14:36 Urine,Clean Catch Urine Culture - Final Multiple organisms, suggests contamination. 06/24/18 11:15 Blood Blood Culture - Preliminary 06/24/18 11:15 Blood Blood Culture - Preliminary Radiology Reports for the Last 24 Hours: 06/25/18 Retroperitoneal ultrasound: 1. Negative bilateral renal ultrasound. - Constitutional no acute distress - *Routine HEENT Exam Head: Present: normocephalic Eye: Present: PERRL, normal accommodation ENT: Present: mucous membranes moist - *Routine Respiratory Exam Present: CTA bilaterally - *Routine Cardiovascular Exam Present: RRR - *Routine Abdominal Exam Present: soft, normoactive bowel sounds. Absent: tenderness, distended, rigid Comments: obese - *Routine Extremities Exam Present: full ROM, pulses intact. Absent: edema, calf tenderness - *Routine Neurological Exam Present: alert, oriented X3, moving all extremities, normal speech Assessment and Plan (1) Renal insufficiency Current visit: Yes Status: Acute Category: Medical Code(s): N28.9 - Disorder of kidney and ureter, unspecified (2) Syncope Current visit: Yes Status: Acute Category: Medical Code(s): R55 - Syncope and collapse (3) Chest pain Current visit: Yes Status: Acute Qualifiers: Category: Medical Code(s): R07.9 - Chest pain, unspecified (4) Hypertensive disorder Current visit: No Status: Chronic Qualifiers: Hypertension type: essential hypertension Qualified Code(s): I10 - Essential (primary) hypertension Category: Medical Code(s): I10 - Essential (primary) hypertension (5) Obesity Current visit: No Status: Chronic Qualifiers: Obesity type: unspecified obesity type Obesity classification: adult class 3 (BMI >= 40) Serious obesity comorbidity presence: without serious comorbidity Body mass index: BMI 45.0-49.9 Qualified Code(s): E66.01 - Morbid (severe) obesity due to excess calories; Z68.42 - Body mass index (BMI) 45.0-49.9, adult Category: Medical Code(s): E66.9 - Obesity, unspecified - Assessment and plan all Dx Assessment and Plan for all problems:: Renal function slightly improved. Will continue current care. Further per Dr. Ray.
--- NOTE | 2018-06-28 09:11 | Discharge Summary ---
General - General Admission date:: 06/24/18 Discharge date: 06/26/18 HPI HPI: Briseyda is a 32-year-old female with a history of hypertension and asthma who presented to [facility] emergency room after not feeling well for about 3 weeks and worse the last 3 days. She describes midsternal chest pain, some shortness of breath, nausea,. She states the chest pain was sharp in nature and radiated down her left arm. She has had some cough and the pain is worse in her chest on deep inspiration. She also describes passing out twice last evening with her as a witness. He states she was out for about 5 minutes but there was no loss of bowel or bladder control. She stated that her systolic blood pressure was around 200. In the emergency room she was given an IV fluid bolus, IV morphine and Zofran. Troponin I was normal x1; electrolytes were normal; renal function was elevated, and BNP was normal. Chest x-ray did not show pneumonia. She was then admitted for further evaluation and treatment Hospital Course Hospital Course: The patient's chest pain resolved with morphine but returned the next am. It was felt it was musculoskeletal in nature. She was given some steroids. Her renal function improved slightly but was still elevated. Her IVF rate was increased and her renal function continued to improve. Her blood culture came back showing staph hominis. She had a normal white blood cell count during her entire admission. She did not run a fever. Her renal ultrasound was negative. She was stable for discharge on clindamycin and will need to f/u soon in the o ffice of [facility]. Objective Vital signs: Temp Pulse Resp BP Pulse Ox 97.6 F 55 L 14 95/47 95 06/26/18 08:00 06/26/18 08:00 06/26/18 08:00 06/26/18 08:00 06/26/18 09:02 Narrative: - Constitutional no acute distress Comments: Sitting [place] style on the stretcher. Appears comfortable. - *Routine HEENT Exam Head: Present: normocephalic, atraumatic Eye: Present: EOMI, PERRL, normal accommodation. Absent: conjunctival icterus, scleral injection ENT: Present: mucous membranes moist, oropharynx clear - *Routine Neck Exam Present: supple, full ROM. Absent: carotid bruit, lymphadenopathy, thyromegaly - Routine Chest/Breast/Axilla Exam Chest wall: Present: tenderness (Midsternal and left anterior) - *Routine Respiratory Exam Present: CTA bilaterally (Anteriorly and posteriorly) - *Routine Cardiovascular Exam Present: RRR Comments: Distant heart sounds - *Routine Abdominal Exam Present: soft, normoactive bowel sounds Comments: Mild tenderness diffuse; obese - *Routine Extremities Exam Present: calf tenderness (Bilateral wherever touched, no cords or masses). Absent: edema - *Routine Neurological Exam Present: alert, oriented X3, CN II-XII intact DS: Diagnosis - Discharge Diagnosis (1) Renal insufficiency Status: Acute (2) Syncope Status: Acute (3) Chest pain Status: Acute (4) Hypertensive disorder Status: Chronic (5) Positive blood culture Status: Acute Discharge Plan - Patient Discharge Instructions ACTIVITY: Limited activity DIET: low fat, low cholesterol Patient Instructions: DI for Syncope in Adults (Fainting), DI for Chest Pain - Follow up Plan Follow up with: Kaushal Ray MD [Staff Physician] - 06/29/18 Disposition: Home, Self-Senior Living Medications: Home Medications Medication Instructions Recorded Confirmed Type cetirizine 10 mg capsule 10 mg PO DAILY cap 12/15/17 06/24/18 History famotidine 40 mg tablet 40 mg PO QHS 12/15/17 06/24/18 History sertraline 100 mg tablet 100 mg PO DAILY tab 12/15/17 06/24/18 History albuterol sulfate HFA 90 2 spray INHALATION Q4-6H PRN 16 02/26/18 06/24/18 History mcg/actuation aerosol inhaler Days #18 fluticasone furoate 100 1 spray INHALATION DAILY 30 Days 02/26/18 06/24/18 History mcg/actuation blister powder for #30 inhalation aripiprazole 15 mg tablet 1 tab PO HS 30 Days #30 05/04/18 06/24/18 History beclomethasone diprop 40 1 puff INHALATION BID 05/04/18 06/24/18 History mcg/actuation HFA breath activated aerosol Bisoprolol Fumarate [Bisoprolol 10 mg PO DAILY 06/24/18 06/24/18 History 10mg Tablet] Fluticasone Propionate 2 sprays NS DAILY 06/24/18 06/24/18 History Lisinopril/Hydrochlorothiazide 2 tab PO DAILY 06/24/18 06/24/18 History [Lisinopril-Hctz 20-12.5 mg Tab] Montelukast Sodium [Montelukast 10 mg PO HS 06/24/18 06/24/18 History 10mg Tab] Norgestrel-Ethinyl Estradiol 1 tab PO DAILY 06/24/18 06/24/18 History [Cryselle-28 Tablet] Trazodone HCl 200 mg PO HS 06/24/18 06/24/18 History Prescriptions/Medication Reconciliation: Continue sertraline 100 mg tablet 100 mg PO DAILY tab cetirizine 10 mg capsule 10 mg PO DAILY cap fluticasone furoate 100 mcg/actuation blister powder for inhalation 1 spray INHALATION DAILY 30 Days #30 albuterol sulfate HFA 90 mcg/actuation aerosol inhaler 2 spray INHALATION Q4- 6H PRN 16 Days #18 PRN Reason: ASTHMA beclomethasone diprop 40 mcg/actuation HFA breath activated aerosol 1 puff INHALATION BID aripiprazole 15 mg tablet 1 tab PO HS 30 Days #30 famotidine 40 mg tablet 40 mg PO QHS diclofenac 1 % topical gel 4 g TOPICAL QID #30 g Lisinopril/Hydrochlorothiazide [Lisinopril-Hctz 20-12.5 mg Tab] 2 tab PO DAILY Bisoprolol Fumarate [Bisoprolol 10mg Tablet] 10 mg PO DAILY Montelukast Sodium [Montelukast 10mg Tab] 10 mg PO HS Fluticasone Propionate 2 sprays NS DAILY Trazodone HCl 200 mg PO HS Clindamycin HCl [Cleocin HCl] 300 mg PO Q6H #20 capsule Norgestrel-Ethinyl Estradiol [Cryselle-28 Tablet] 1 tab PO DAILY
== END 2018-06-26 11:11 | disposition home or self-care (01) ==
LOC: ER 10:31 → 2ND 14:13 → INTOOBSV 14:52 → 2ND 14:54
PROVIDERS: ADMIT Family Medicine; ATTEND Family Medicine

== ENCOUNTER → 2018-08-31 10:02 | Outpatient (CLI) | payer MEDICAID, SELFPAY ==
[2018-08-31 10:45] LABS: Urine Pregnancy, HCG Qual. Negative (Negative)
[2018-08-31 11:20] LABS: Alanine Aminotransferase 48 U/L (12-78); Albumin Level 4.1 gm/dL (3.4-5.0); Albumin/Globulin Ratio 1.1 (1.1-1.8); Alkaline Phosphatase 73 U/L (46-116); Aspartate Amino Transferase 37 U/L (15-37); Bilirubin,Total 0.5 mg/dL (0.2-1.0); Blood Urea Nitrogen 17 mg/dL (7-18); Calcium 9.9 mg/dL (8.5-10.1); Carbon Dioxide 26 mmol/L (21.0-32.0); Chloride 102 mmol/L (98-107); Creatinine,Serum 1.45 mg/dL (0.55-1.02); Estimated Glomerular Filt Rate 41 ml/min (>60); GFR (African American) 50 ML/MIN (>60); Globulin 3.7 gm/dl (1.3-3.2); Glucose 100 mg/dL (74-106); Sodium 140 mmol/L (136-145); Total Protein,Serum 7.8 gm/dL (6.4-8.2)
== END ==
PROVIDERS: Visit Provider Obstetrics & Gynecology
DX: Z01.818 Encounter for other preprocedural examination (principal); Z30.2 Encounter for sterilization
CPT/HCPCS: 36415; 80053; 81025; 93005

== ENCOUNTER 2020-07-18 08:35 | Day surgery (SDC) | payer MEDICAID, SELFPAY ==
[2020-07-18] VITALS (29 sets, daily range): BP systolic 96–160; BP diastolic 48–95; PULSE 70–104; RESP 12–20; TEMP 36.4–43; O2SAT 95–100; BMI 42.5
--- NOTE | 2020-07-18 08:40 | HMH.EDGENADL ---
ED Disposition Clinical Impression: Fracture dislocation of ankle joint Qualifiers: Encounter type: initial encounter Fracture type: closed Laterality: left Qualified Code(s): S82.892A - Other fracture of left lower leg, initial encounter for closed fracture Disposition: Admitted as Observation Condition on Discharge: Fair - Critical Care Critical Care Time: No Attestation: On , the high probability of a clinically significant, sudden or life threatening deterioration of the following system(s) required my full and direct attention, intervention and personal management. The time I documented below is in addition to time spent performing reported procedures but includes the following listed in this critical care notation. Medical Decision Making - Alfredo Inquiry Pt receiving controlled substance: Yes Alfredo was queried for this patient: No Reason not queried -: Emergent pt cond-no time Risks and benefits of using a controlled substance: were not discussed with pt by me Vital Signs: 07/18/20 08:41 07/18/20 09:02 07/18/20 09:30 Temperature 98 F Temperature Source Oral Pulse Rate [Radial] 104 H 92 H 82 Respiratory Rate 20 Blood Pressure [Right Radial Artery] 156/55 H 119/57 L 114/58 L Blood Pressure Mean [Right Radial Artery] 88 77 76 Blood Pressure Source [Right Radial Artery] Automatic Cuff Blood Pressure Position [Right Radial Artery] Sitting Sitting 02 Sat by Pulse Oximetry 98 96 100 Oxygen Delivery Method Room Air Room Air Nasal Cannula Oxygen Flow Rate (LPM) 2 07/18/20 09:42 07/18/20 09:47 07/18/20 09:52 Temperature Temperature Source Pulse Rate [Radial] 93 H 89 77 Respiratory Rate 20 20 18 Blood Pressure [Right Radial Artery] 119/69 119/51 L 96/51 L Blood Pressure Mean [Right Radial Artery] 85 73 66 Blood Pressure Source [Right Radial Artery] Blood Pressure Position [Right Radial Artery] Sitting Sitting 02 Sat by Pulse Oximetry 100 100 98 Oxygen Delivery Method Nasal Cannula Nasal Cannula Nasal Cannula Oxygen Flow Rate (LPM) 2 2 2 07/18/20 09:55 07/18/20 09:58 07/18/20 10:02 Temperature Temperature Source Pulse Rate [Radial] 78 82 77 Respiratory Rate 18 18 Blood Pressure [Right Radial Artery] 101/48 L 105/53 L 111/66 Blood Pressure Mean [Right Radial Artery] 65 70 81 Blood Pressure Source [Right Radial Artery] Blood Pressure Position [Right Radial Artery] Sitting Sitting Sitting 02 Sat by Pulse Oximetry 98 98 98 Oxygen Delivery Method Nasal Cannula Nasal Cannula Nasal Cannula Oxygen Flow Rate (LPM) 2 2 2 07/18/20 10:16 07/18/20 10:22 07/18/20 10:26 Temperature Temperature Source Pulse Rate [Radial] 85 73 70 Respiratory Rate Blood Pressure [Right Radial Artery] 122/62 107/51 L 103/50 L Blood Pressure Mean [Right Radial Artery] 82 69 67 Blood Pressure Source [Right Radial Artery] Automatic Cuff Automatic Cuff Automatic Cuff Blood Pressure Position [Right Radial Artery] Sitting Sitting Sitting 02 Sat by Pulse Oximetry 100 100 97 Oxygen Delivery Method Room Air Oxygen Flow Rate (LPM) 07/18/20 11:11 07/18/20 11:38 07/18/20 11:58 Temperature Temperature Source Pulse Rate [Radial] 88 73 81 Respiratory Rate 18 Blood Pressure [Right Radial Artery] 108/56 L 109/53 L 125/57 L Blood Pressure Mean [Right Radial Artery] 73 71 79 Blood Pressure Source [Right Radial Artery] Automatic Cuff Automatic Cuff Blood Pressure Position [Right Radial Artery] Sitting Sitting Sitting 02 Sat by Pulse Oximetry 98 99 97 Oxygen Delivery Method Room Air Room Air Room Air Oxygen Flow Rate (LPM) - Lab Data Lab Results 07/18/20 08:55: Serum HCG, Qual Negative 07/18/20 08:55: WBC 8.7, RBC 4.94, Hgb 14.2, Hct 43.7, MCV 88.4, MCH 28.6, MCHC 32.4, RDW 13.6, Plt Count 533 H, MPV 8.0, Neut % (Auto) 60.6, Lymph % (Auto) 31.7, Cassia % (Auto) 3.9, Eos % (Auto) 3.1, Baso % (Auto) 0.7, Neut # (Auto) 5.3, Lymph # (Auto) 2.8, Cassia # (Auto) 0.3, Eos # (Auto) 0.3, Baso # (A
--- NOTE | 2020-07-18 08:43 | XR_ITS ---
PROCEDURE: XR TIBIA FIBULA LT 2V CLINICAL INDICATION: injury Known fracture dislocation of the ankle COMPARISON: CR XR ANKLE LT MIN 3V from 07/18/2020 FINDINGS: The proximal tibia and fibula appear intact. The soft tissues appear grossly normal. IMPRESSION: Negative proximal tibia and fibula Dictated by: Dr. Dong Castillo MD 07/18/2020 09:40 Dr. Dong Castillo MD in [place] 07/18/2020 09:40
--- NOTE | 2020-07-18 08:43 | XR_ITS ---
PROCEDURE: XR ANKLE LT MIN 3V CLINICAL INDICATION: injury COMPARISON: Left tibia fibula same date FINDINGS: There is a leak fracture of the distal fibula with varus angulation at the fracture site. There is essentially complete dislocation of the distal tibia on the dome of the talus with a moderate-sized posterior malleolar fracture fragment with the fracture fragment maintaining its normal alignment with the dome of the talus. The talus and calcaneus appears intact. There are prominent spurs of the calcaneus at the insertion of the plantar tendon and Achilles tendon. There is diffuse soft tissue swelling of the ankle. IMPRESSION: Fracture distal fibula in fracture dislocation the ankle joint with the distal tibia dislocated medially and anteriorly on the dome of the talus in addition to a moderate size posterior malleolar fracture fragment Dictated by: Dr. Dong Castillo MD 07/18/2020 09:43 Dr. Dong Castillo MD in [place] 07/18/2020 09:43
--- NOTE | 2020-07-18 08:55 | PC.NURSE ---
Rad at bedside
[2020-07-18 09:11] LABS: HCG Qualitative, Serum Negative (Negative)
--- NOTE | 2020-07-18 09:23 | PC.NURSE ---
Calling ortho at this time. Dr Neal is telecommunications project manager.
--- NOTE | 2020-07-18 09:23 | PC.NURSE ---
OSITO ODOM speaking with Dr Neal at this time.
--- NOTE | 2020-07-18 09:50 | PC.NURSE ---
contacted care management per ER MD request for pt to have a knee scooter for mobility r/t pt states unable to use crutches. Cherry from care management brought down a form to send to [facility] for the device needed.
--- NOTE | 2020-07-18 09:56 | PC.NURSE ---
Rad called for post reduction film
--- NOTE | 2020-07-18 09:57 | XR_ITS ---
PROCEDURE: XR ANKLE LT 2V CLINICAL INDICATION: Post reduction COMPARISON: CR ANKL3 ANKLE-LT-3 VIEWS from 11/20/2016 CR [id number] XR ankle wt bearing LT min 3V from 02/27/2018 CR [id number] XR ankle wt bearing RT min 3V from 02/27/2018 CR XR ANKLE LT MIN 3V from 07/18/2020 FINDINGS: There has been interval reduction of the ankle dislocation. Mildly displaced distal shaft fibular fracture noted and mild is placed distal dorsal tibial fracture noted. There is a cast in place. IMPRESSION: Reduced ankle dislocation with distal tib fib fractures as described above Dictated by: Mason Louise MD 07/18/2020 10:28 Mason Louise MD in [facility] 07/18/2020 10:28
--- NOTE | 2020-07-18 10:06 | PC.NURSE ---
Dr. Neal at
--- NOTE | 2020-07-18 10:07 | INFXCTL.NOTE ---
Dr Neal at bedside. as well as VALERY
--- NOTE | 2020-07-18 10:19 | CT_ITS ---
PROCEDURE: CT ANKLE LT WO CON CLINICAL HISTORY: fracture dislocation COMPARISON: No exams were available for comparison TECHNIQUE: Axial images obtained with sagittal and coronal reformats. All CT scans at the facility use one or more dose reduction, viz: automated exposure control, ma/kV adjustment per patient size (including targeted exams where dose is matched to indication, i.e. head), or iterative reconstruction technique. FINDINGS: There is a partially comminuted oblique fracture distal fibula with mild varus angulation at the fracture site. There is a tiny bone fragment sitting between the proximal and distal fibular fragments. There is a triangular-shaped fracture fragment of the posterior malleolus without significant displacement. There is a tiny butterfly fragment of the posterior malleolar fracture at right angles to the larger fragment. The talus and calcaneus appear intact. There is mild diffuse soft tissue swelling of the lower leg and ankle. IMPRESSION: Comminuted oblique fracture distal fibula with mild varus angulation in addition to fracture dislocation of the ankle joint with comminuted posterior malleolar fracture fragment and prominent medial slight anterior dislocation of the distal tibia on the dome of the talus. Dictated by: Dr. Dong Castillo MD 07/18/2020 11:35 Dr. Dong Castillo MD in [place] 07/18/2020 11:35
--- NOTE | 2020-07-18 10:38 | PC.NURSE ---
order fo knee scooter/roller for pt faxed to [facility] at this time
--- NOTE | 2020-07-18 11:30 | PC.NURSE ---
pt and spouse updated on plan of care
--- NOTE | 2020-07-18 11:32 | PC.NURSE ---
Pt has removed all jewelry at this time.
[2020-07-18 11:35] LABS: Chloride 102 mmol/L (98-107)
[2020-07-18 11:36] LABS: Potassium 4.1 mmoL/L (3.5-5.1); Sodium 140 mmol/L (136-145)
[2020-07-18 11:38] LABS: Blood Urea Nitrogen 16 mg/dl (7-17); Creatinine Clearance Estimated 56 mL/min (50-200); Estimated Glomerular Filt Rate 43 ml/min (>60); GFR (African American) 51 ML/MIN (>60)
[2020-07-18 11:39] LABS: Alanine Aminotransferase 33 U/L (12-78); Albumin Level 4.3 g/dl (3.5-5.0); Albumin/Globulin Ratio 1.3 (1.1-1.8); Alkaline Phosphatase 78 U/L (38-126); Anion Gap 15.1 mEq/L (5-15); Aspartate Amino Transferase 44 U/L (14-36); Basophils # 0.1 K/mm3 (0-0.2); Basophils % 0.7 % (0.1-2.0); Bilirubin,Total 0.5 mg/dl (0.2-1.3); Calcium 9.7 mg/dl (8.4-10.2); Carbon Dioxide 27 mmol/L (22.0-30.0); Eosinophils # 0.3 K/mm3 (0.0-0.4); Eosinophils % 3.1 % (0.1-12.0); Globulin 3.4 g/dL (1.3-3.2); Glucose 105 mg/dl (74-100); Hematocrit 43.7 % (37.0-47.0); Hemoglobin 14.2 g/dL (12.2-16.2); Lymphocytes # 2.8 K/mm3 (0.7-4.5); Lymphocytes % 31.7 % (10-50); Mean Corpuscular HGB Conc 32.4 g/dL (31.8-35.4); Mean Corpuscular Hemoglobin 28.6 pg (27.0-31.2); Mean Corpuscular Volume 88.4 fl (81-99); Monocytes # 0.3 K/mm3 (0.1-1.0); Monocytes % 3.9 % (1.7-9.3); Neutrophils # 5.3 K/mm3 (1.8-7.8); Neutrophils % 60.6 % (37.0-80.0); Platelet Count 533 K/mm3 (142-424); Red Blood Count 4.94 M/mm3 (4.20-5.40); Red Cell Distribution Width 13.6 % (11.5-17.5); Total Protein,Serum 7.7 g/dl (6.3-8.2); White Blood Count 8.7 K/mm3 (4.8-10.8)
[2020-07-18 12:02] LABS: Coronavirus 19 IgG Antibody Negative (Negative); Coronavirus 19 IgM Antibody Negative (Negative)
--- NOTE | 2020-07-18 13:16 | HMH.ANESCL ---
[facility] Anesthesia Checklist - Structural Data Admitted From: Home Planned Operative Procedure/s: orif l ankle Consent for Planned Operative Procedure(s) Verified: Yes - Additional verifications Anesthesia Reactions: No Hx Blood Transfusions: No Blood Transfusion Reaction: No - Airway Assessment C-Spine Mobility Assessed: Yes TMJ Mobility Assessed: Yes Dentition: Good Dentition - Neurological Assessment Level of Consciousness: Awake, Alert, Appropriate - Anesthesia Plan Anesthesia Risk discussed: Yes Anesthesia Plan: Verified ASA Class: III Anesthesia Type: General [facility] History I have reviewed the patient's past medical history: Yes Medical History: Reports:: Anxiety, Asthma, Heart Murmur, Hyperlipidemia, Hypertension, Palpitations Denies:: Cancer, Diabetes Mellitus Type 1, Diabetes Mellitus Type 2, Gastroesophageal Reflux Disease(GERD), Internal Pacemaker, MRSA, Seizures, Tuberculosis *Have you ever received a pneumonia vaccine?: No *Have you received a flu vaccine this season?: No Other Medical History: Reports: Hoarseness, Sinus Problems. Denies: Blood Transfusion Reaction Anesthesia experience/problems:: none Other Surgeries: Yes: Cholecystectomy, Other (cholecystecotmy). No: Pacemaker Amputation: No Fractures: No - *Social History Smoking Status: Never smoker Alcohol Intake: never Alcohol Intake Frequency:: other Substance Use Type: denies use *Occupational Status:: unemployed Housing: house Household Members: spouse, children *Travel in the last 8 weeks: Inside the [place] - Psychiatric History Pschychiatric History:: Reports:: Anxiety Family Hx:: Cancer, Coronary Artery Disease, Hypertension
--- NOTE | 2020-07-18 13:25 | HMH.PHAINT ---
MEDICATION RECONCILIATION COMPLETED ON PATIENT USING EXTERNAL FILL HISTORY FROM [facility]. -CYNDI CARVER, NICKD
--- NOTE | 2020-07-18 13:46 | HMH.ORTHOCON ---
*Admission Date: 07/18/20 *Reason for consult:: Fracture left ankle *History of present illness: Patient is a 34-year-old female seen in the ER for orthopedic evaluation and management of her left ankle injury. She presented to the ER earlier this morning after injuring her left ankle when she slipped on her ramp. She states she caught her foot on a cinder block and fell down. She developed immediate pain and deformity of the left ankle. She could not get up and weight-bear. She denies any other injuries. Evaluation in the ER confirmed a fracture dislocation of the left ankle. The ER physician, Dr. Fields, performed a closed reduction of the ankle under sedation. Check x-rays appear to have improved the position but the CT scan shows still marked subluxation of the talus. Given the significant talar displacement, deformity and potential for skin breakdown, I have recommended an open reduction internal fixation of the ankle at the earliest. Patient's last oral intake is yesterday evening. Her past medical history includes Anxiety, Asthma, Heart Murmur, Hyperlipidemia, Hypertension, Palpitations and morbid obesity. She is a non-smoker and not known to be diabetic. [facility] History I have reviewed the patient's past medical history: Yes Medical History: Reports:: Anxiety, Asthma, Heart Murmur, Hyperlipidemia, Hypertension, Palpitations Denies:: Cancer, Diabetes Mellitus Type 1, Diabetes Mellitus Type 2, Gastroesophageal Reflux Disease(GERD), Internal Pacemaker, MRSA, Seizures, Tuberculosis *Have you ever received a pneumonia vaccine?: No *Have you received a flu vaccine this season?: No Other Medical History: Reports: Hoarseness, Sinus Problems. Denies: Blood Transfusion Reaction Anesthesia experience/problems:: none Other Surgeries: Yes: Cholecystectomy, Other (cholecystecotmy). No: Pacemaker Amputation: No Fractures: No - *Social History Smoking Status: Never smoker Alcohol Intake: never Alcohol Intake Frequency:: other Substance Use Type: denies use *Occupational Status:: unemployed Housing: house Household Members: spouse, children *Travel in the last 8 weeks: Inside the [facility] - Psychiatric History Pschychiatric History:: Reports:: Anxiety Family Hx:: Cancer, Coronary Artery Disease, Hypertension Review of Systems - Review of Systems Review of systems:: pertinent systems reviewed and negative unless documented below - Constitutional Denies chills, Denies fever(s) - Eyes Denies change in vision - ENT Denies abnormal hearing - *Cardiovascular Denies chest pain, Denies shortness of breath - *Respiratory Denies chest congestion, Denies cough, Denies shortness of breath - *Gastrointestinal Denies abdominal pain, Denies change in bowel habits - *Musculoskeletal Reports abnormal walking, Reports joint pain, Reports deformity, Reports joint swelling, Reports limited joint movement - *Neurologic Denies seizure-like activity, Denies numbness, Denies tingling, Denies weakness - Endocrine Denies cold intolerance, Denies heat intolerance - Hematologic/Lymphatic Denies easy bleeding, Denies easy bruising Meds Home Medications Medication Instructions Recorded Confirmed Type cetirizine 10 mg capsule 10 mg PO DAILY cap 12/15/17 08/02/20 History RX: Lisinopril/Hydrochlorothiazide 2 tab PO DAILY 06/24/18 08/02/20 History [Lisinopril-Hctz 20-12.5 mg Tab*] RX: bisoproloL fumarate 10 mg PO DAILY 06/24/18 08/02/20 History [Bisoprolol 10mg Tablet] Gabapentin [Gabapentin 300mg Cap] 300 mg PO TID 07/18/20 08/02/20 History Ibuprofen [Ibuprofen 200MG Capsule] 800 mg PO Q6HP PRN 07/18/20 08/02/20 History Montelukast Sodium [Singulair 10mg 10 mg PO PM 07/18/20 08/02/20 History tablet] Omeprazole [Omeprazole 40mg 40 mg PO DAILY 07/18/20 08/02/20 History Capsule] RX: ARIPiprazole [Abilify 10mg 10 mg PO DAILY 07/18/20 08/02/20 History Tablet] RX: Tizanidine HCl [Zanaflex 4mg 4 mg PO TIDP AL
--- NOTE | 2020-07-18 16:18 | XR_ITS ---
PROCEDURE: XR ANKLE LT 2V CLINICAL INDICATION: ORIF COMPARISON: No exams were available for comparison FINDINGS: Fluoroscopy time: 4 minutes and 17 seconds. Multiple images submitted with the C-arm show lateral bone plate placement at the fibula with good alignment. There has been syndesmotic repair with translucent fixators at the distal tib fib with good alignment and preservation of the ankle mortise. IMPRESSION: Good alignment status post ORIF distal tib fib fractures Dictated by: Mason Louise MD 07/19/2020 11:56 Mason Louise MD in [place] 07/19/2020 11:56
--- NOTE | 2020-07-18 17:09 | P.PN_ITS ---
[facility] Anesthesia Record Part I Intake, IV Amount: 2,000 Estimated blood loss (mL): 25 Urine output (mL): 0 Blood Pressure: 160/82 SaO2: 96 Pulse Rate: 94 Respiratory Rate: 12 Temperature: 97.5 F Patient is:: Awake, Stable Stable to PACU at:: 17:05
--- NOTE | 2020-07-18 18:22 | HMH.OPNOTE ---
Date of procedure: 07/18/20 Pre-op Diagnosis:: Closed fracture dislocation, left ankle Post-op Diagnosis:: Same Procedure performed:: 1. Open reduction and internal fixation distal fibula, left ankle 2. Inferior tibiofibular syndesmotic fixation, left ankle Surgeon:: Bradford Neal MD Horticultural Farmworker(s):: Dayami Calderón [employer]ER [employer] CEO:: Artur Perez Anesthesia: GETA Estimated blood loss (mL): 10 Clinical Note:: Patient is a 34-year-old female who sustained a closed, fracture dislocation of the LEFT ankle. The lateral malleolus/distal fibula fracture is displaced with talar dislocation. The ankle was partially reduced under sedation in the ER. However, there is still significant tibiotalar subluxation of the ankle on the CT scan. The medial malleolus is noted to be intact and there is a small the posterior malleolus fragment. Following a detailed discussion about the management options including both the nonoperative and operative, patient elected for surgical remediation. Surgery is indicated to anatomically reduce and stabilize the fracture dislocation in order to relieve the pain and improve the function. Operative findings:: Preoperative imaging findings and diagnosis correlate with the intraoperative findings. There is a displaced, comminuted Bergman C type of lateral malleolus fracture. There is a lateral talar shift. The inferior tibiofibular syndesmosis is unstable and was therefore fixed with 2 Synchfix syndesmosis fixation devices. After fixing the above, the ankle joint appeared stable and I felt it is not necessary to explore/repair the deltoid ligament. The posterior malleolus fracture is small and is well reduced after fixing the lateral malleolus fracture and the inferior tibiofibular syndesmosis. Operative note:: Prior to surgery patient and her were met in the preoperative assessment area and positively identified. I have again reviewed the clinical and imaging findings, diagnosis, management options including both nonsurgical and surgical and the expected results. Given the clinical and radiological findings, I have recommended an open reduction and internal fixation of the ankle fracture dislocation as needed intraoperatively. We've outlined where the incisions would be on the skin. Risks of surgery discussed include but are not limited to- infection, injury to nerves and blood vessels, injury to tendons, compartment syndrome, DVT/PE, malunion, nonunion, stiffness, CRPS (complex regional pain syndrome- pain, sensory and temperature changes, swelling and stiffness), painful hardware, loss of fixation, arthritis, incomplete relief of pain, incomplete return of function, and likely need for further surgery in future and also the risks of anesthesia including heart attack, stroke, and even . We've discussed how there is a small but real possibility of loss of use of the leg, loss of the leg or loss of life itself. We've also explained how additional surgery may be required. We explained the weightbearing status, immobilization required, the likely need for physical therapy, the possibility of stiffness, chronic pain and we've also discussed the option of nonsurgical treatment. The patient expressed full understanding and asked appropriate questions. All the questions were answered by me and patient verbalized a good understanding. She wished to proceed with surgery as planned. Patient understood the risks, agreed to proceed with surgery, signed the consent form and no guarantees or assurances were given or implied. A physical examination was performed and documented. The limb was marked and the consent form was reviewed and signed. The patient was brought to the operating room, placed supine on the operating table, and a general anesthesia was administered by the benefits clerk. All the bony prominences were appropriately padded. A small bump was placed under the LEFT hip. A well-padded tourniquet cuff was applied over the LEFT upper thigh. T
[2020-07-21 14:18] VITALS: BP 136/80; PULSE 85; TEMP 36.9
--- NOTE | 2020-07-21 14:18 | HMH.ANESII ---
[facility] Anesthesia Record Part II Discharge Time: 17:35 Destination: [facility] PACU nurse assessment reviewed?: Yes Patient Condition:: Good Anesthesia Complications:: None Swallowing reflex intact?: Yes Cyanosis?: No Blood Pressure: 136/80 Pulse Rate: 85 Temperature: 98.5 F Mental Status: Alert & Oriented Pain level:: 8 Nausea and/or vomitting:: None Intake, IV Amount: 2,500
== END 2020-07-18 18:35 | disposition home or self-care (01) ==
LOC: ER 11:12 → 2ND 11:26 → OR 16:22
PROVIDERS: Emergency Provider Emergency Medicine; PCP Pediatrics; Visit Provider Orthopaedic Surgery
PROC: (CPT 27829; principal; 2020-07-18 14:00)
DX: S82.432A Displaced oblique fracture of shaft of left fibula, initial encounter for closed fracture (principal); S82.62XA Displaced fracture of lateral malleolus of left fibula, initial encounter for closed fracture; M25.372 Other instability, left ankle; S93.432A Sprain of tibiofibular ligament of left ankle, initial encounter; I10 Essential (primary) hypertension; Z79.899 Other long term (current) drug therapy; Z88.0 Allergy status to penicillin; Z88.2 Allergy status to sulfonamides; Z88.8 Allergy status to other drugs, medicaments and biological substances; W01.198A Fall on same level from slipping, tripping and stumbling with subsequent striking against other object, initial encounter; Y92.018 Other place in single-family (private) house as the place of occurrence of the external cause
CPT/HCPCS: 27829; 27792; 29515; 73590; 73600; 73610; 73700; 76000; 80053; 84703; 85025; 86328; 96365; 96375; 96376; 99152; 99285; C1713; C1776; J2405

== ENCOUNTER → 2020-08-02 10:16 | Outpatient (CLI) | payer MEDICAID, SELFPAY ==
--- NOTE | 2020-08-02 10:21 | XR_ITS ---
PROCEDURE: XR ANKLE LT MIN 3V CLINICAL INDICATION: sp ORIF LT ankle, in splint Follow-up ORIF COMPARISON: CR [id number] XR ankle wt bearing LT min 3V from 02/27/2018 CR [id number] XR ankle wt bearing RT min 3V from 02/27/2018 XA XR ANKLE LT 2V from 07/18/2020 CR XR ANKLE LT MIN 3V from 07/18/2020 FINDINGS: Status post syndesmotic repair of the distal tib fib and ORIF distal fibular fracture with good alignment. Cast is in place. IMPRESSION: Good alignment status post ORIF distal tib fib Dictated by: Mason Louise MD 08/02/2020 12:38 Mason Louise MD in [place] 08/02/2020 12:38
== END ==
PROVIDERS: PCP Pediatrics; Visit Provider Orthopaedic Surgery
DX: S82.62XD Displaced fracture of lateral malleolus of left fibula, subsequent encounter for closed fracture with routine healing (principal); Z09 Encounter for follow-up examination after completed treatment for conditions other than malignant neoplasm
CPT/HCPCS: 73610

== ENCOUNTER → 2020-08-16 14:07 | Outpatient (CLI) | payer MEDICAID, SELFPAY ==
--- NOTE | 2020-08-16 14:15 | XR_ITS ---
PROCEDURE: XR ANKLE LT MIN 3V CLINICAL INDICATION: sp ORIF lt ankle; cast applied COMPARISON: CR [id number] XR ankle wt bearing LT min 3V from 02/27/2018 CR XR ANKLE LT 2V from 07/18/2020 CR XR ANKLE LT MIN 3V from 07/18/2020 CR XR ANKLE LT MIN 3V from 08/02/2020 FINDINGS: Status post distal tib fib with lateral fibular bone plate and 2 metallic buttons along the medial aspect of the distal tibia with translucent fixators. There is good alignment. The ankle mortise is preserved. Small calcific density is present at the tip the medial malleolus and could be due to an avulsion injury. There is good alignment of the posterior distal tibial fracture. There is a small calcaneal spur present unchanged. Studies exam obtained through a cast. IMPRESSION: Good alignment status post ORIF distal tib fib Dictated by: Mason Louise MD 08/16/2020 15:20 Mason Louise MD in [place] 08/16/2020 15:20
== END ==
PROVIDERS: PCP Pediatrics; Visit Provider Orthopaedic Surgery
DX: S82.62XD Displaced fracture of lateral malleolus of left fibula, subsequent encounter for closed fracture with routine healing (principal); Z09 Encounter for follow-up examination after completed treatment for conditions other than malignant neoplasm
CPT/HCPCS: 73610

== ENCOUNTER → 2020-09-06 11:08 | Outpatient (CLI) | payer MEDICAID, SELFPAY ==
--- NOTE | 2020-09-06 11:12 | XR_ITS ---
PROCEDURE: XR ANKLE LT MIN 3V CLINICAL INDICATION: sp ORIF LT ankle, dos 07/18/2020; OUT OF CAST Follow-up fracture COMPARISON: CR XR ANKLE LT 2V from 07/18/2020 CR XR ANKLE LT MIN 3V from 07/18/2020 CR XR ANKLE LT MIN 3V from 08/02/2020 CR XR ANKLE LT MIN 3V from 08/16/2020 FINDINGS: There is a lateral bone plate at the distal fibula with 2 metallic buttons at the distal tibia and translucent fixators with preserved ankle mortise. Fracture of the distal fibular shaft once again noted and may be slightly less prominent. The cast has been removed. Calcific density is present at the tip of the medial malleolus and may be due to an old avulsion injury. IMPRESSION: Good alignment status post ORIF distal tib fib as described above. Fracture line of the fibula appears somewhat less apparent and could be due to early healing Dictated by: Mason Louise MD 09/06/2020 15:45 Mason Louise MD in [place] 09/06/2020 15:45
== END ==
PROVIDERS: PCP Pediatrics; Visit Provider Orthopaedic Surgery
DX: S82.62XA Displaced fracture of lateral malleolus of left fibula, initial encounter for closed fracture (principal); Z09 Encounter for follow-up examination after completed treatment for conditions other than malignant neoplasm
CPT/HCPCS: 73610

== ENCOUNTER 2020-09-06 11:56 | Outpatient (RCR) | payer MEDICAID, SELFPAY | END 2020-09-06 12:47 | disposition home or self-care (01) | LOC: PT 11:56 | PROVIDERS: Visit Provider Orthopaedic Surgery | DX: S82.62XD Displaced fracture of lateral malleolus of left fibula, subsequent encounter for closed fracture with routine healing (principal) ==

== ENCOUNTER → 2020-10-18 12:46 | Outpatient (CLI) | payer OTHER, SELFPAY ==
--- NOTE | 2020-10-18 12:52 | XR_ITS ---
PROCEDURE: XR ANKLE LT MIN 3V CLINICAL INDICATION: sp ORIF LT ankle, dos 07/18/20 Follow-up ORIF COMPARISON: CR XR ANKLE LT 2V from 07/18/2020 CR XR ANKLE LT MIN 3V from 08/02/2020 CR XR ANKLE LT MIN 3V from 08/16/2020 CR XR ANKLE LT MIN 3V from 09/06/2020 FINDINGS: Lateral bone plate remains present at the distal shaft of the fibula with multiple cortical screws and translucent fixators between the distal tib fib the fracture at the distal shaft of the fibula is once again noted not significantly changed. Old fracture at the tip of the medial malleolus unchanged. There is good alignment. The ankle mortise is preserved. IMPRESSION: Prior ORIF of the ankle as described above with good alignment Dictated by: Mason Louise MD 10/18/2020 13:23 Mason Louise MD in [place] 10/18/2020 13:23
== END ==
PROVIDERS: PCP Pediatrics; Visit Provider Orthopaedic Surgery
DX: Z09 Encounter for follow-up examination after completed treatment for conditions other than malignant neoplasm (principal); S82.62XA Displaced fracture of lateral malleolus of left fibula, initial encounter for closed fracture
CPT/HCPCS: 73610

== ENCOUNTER 2020-11-02 14:00 | Outpatient (RCR) | payer MEDICAID, OTHER, SELFPAY ==
--- NOTE | 2020-09-12 16:37 | HMH.PTOPEV ---
PT Outpatient Evaluation Rehab PT Outpatient Evaluation Start: 09/12/20 13:42 Freq: Status: Active Protocol: Document 09/12/20 16:23 TEZ (Rec: 09/12/20 16:36 TEZ [id number]) Electronically Signed By Woo Melendez, PT 09/12/20 16:23 Outpatient Therapy Subjective History Subjective History Patient is a 35 year old female presenting to outpatient PT with reports of L foot/ankle pain S/P ORIF for L distal fibular fracture with inferior tib/fib syndesmotic fixation. Sx date 07/18/20 (8 weeks). Initial injury was a result of a fall at home from slip/fall on a wet ramp. Comorbidities include hx of HTN, asthma, R ankle ORIF, cholecystectomy. Chief Complaint Pain,Stiff,Swelling, Paresthesia Symptom Type Ache,Sharp,Numbness Symptoms Relieved By Rest/Positioning,Ice,OTC Meds, Elevation Symptoms Aggravated By Standing,Physical Activity, Walking Prior Functional Limitations None Current Functional Limitations Housework,Standing,Recreation Activity,Walking,Stairs, Balance Symptom Description Constant but Variable Level of pain today (0-10) 4 Pain scale - at its best (0-10) 2 Pain scale - at its worst (0-10) 8 Ankle/Foot Eval Gait Observation General Gait Pattern Observation Antalgic Gait,Decrease Weight Bear (L) Assistive Device Ambulation Assistive Device Standard Walker Palpation Tenderness left Ankle/Foot Palpation Findings Tenderness Ankle/Foot Palpation Overall Comment med/lat malleolus, surgical incisions 3/4 ROM Ankle/Foot Dorsiflexion w/Knee Extended -5 Active Range Motion (degrees) Ankle/Foot Dorsiflexion w/Knee Extended 0 Passive Range (degrees) Ankle/Foot Plantar Flexion Active Range 40 of Motion (degrees) Ankle/Foot Plantar Flexion Passive Range 45 of Motion (degrees) Ankle/Foot Eversion Active Range of 11 Motion (degrees) Ankle/Foot Eversion Passive Range of 15 Motion (degrees) Ankle/Foot Inversion Active Range of 15 Motion (degrees) Ankle/Foot Inversion Passive Range of 17 Motion (degrees) Ankle/Foot ROM Limitations Soft Tissue Tightness,Bony Restriction Great Toe ROM Reason Not Measured
== END 2020-11-02 14:05 | disposition home or self-care (01) ==
LOC: PT 14:00
PROVIDERS: PCP Pediatrics; Visit Provider Orthopaedic Surgery
DX: S82.62XD Displaced fracture of lateral malleolus of left fibula, subsequent encounter for closed fracture with routine healing (principal)
CPT/HCPCS: 97010; 97014; 97016; 97110; 97140; 97163; G0283

== ENCOUNTER 2020-11-03 13:27 | Emergency (ER) | payer OTHER, SELFPAY ==
[2020-11-03 13:46] VITALS: BP 144/69; PULSE 97; RESP 16; TEMP 36.9; O2SAT 97; BMI 45.6
--- NOTE | 2020-11-03 13:53 | HMH.EDUTC ---
[facility] Disposition Clinical Impression: Exposure to COVID-19 virus Disposition: Home, Self-Care Condition on Discharge: Good Instructions: DI for COVID-19 (Suspected or Confirmed ), Coronavirus Disease 2019, Preventing the Spread of Coronavirus Discharge Instructions Additional Instructions: *Monitor Temp, Over the counter Motrin or Tylenol as directed/as needed Tylenol every 4 hours and Motrin every 6 hours (as long as your family doctor has told you that you can take it) for fever or pain. and straight to ER if unable to lower temp less than 101.0 after medication given *Warm salt water gargles may help to soothe the throat *Throat Lozenges *Warm fluids like tea with honey may help to soothe the throat *Sleep elevated *Humidifier/Vaporizer Follow up IMMEDIATELY for new or worsening symptoms or no Noticeable improvement over the next 48-72 hours. 911 for difficulty breathing or swallowing You were tested for today for COVID19 your test result should be back in the next 24-48 hours, you may call to the [facility] [place] to see if your test results are back in the next 48 hours [phone] [facility] hours are 9am-9pm You was given a handout with instructions for Self Quarantine and Self isolation for while you wait on test results and what to do if they are positive If you are positive the Health Dept will be contacting you also Prescriptions: Ondansetron [Zofran 4mg ODT] 4 mg PO TIDP PRN #6 tab PRN Reason: Nausea Transmission Status: Received by [facility] #[id number] Referrals: Jerry Ellis [Primary Care Provider] - As needed Forms: Work/School Release Time of Disposition: 14:21 Medical Decision Making - Alfredo Inquiry Pt receiving controlled substance: No Alfredo was queried for this patient: No Vital Signs: 11/03/20 13:46 11/03/20 14:22 Temperature 98.5 F 98.4 F Temperature Source Oral Pulse Rate 96 H Pulse Rate [Right] 97 H Respiratory Rate 16 16 Blood Pressure 141/69 H Blood Pressure [Right Arm] 144/69 H Blood Pressure Mean [Right Arm] 94 Blood Pressure Source [Right Arm] Automatic Cuff Blood Pressure Position [Right Arm] Sitting 02 Sat by Pulse Oximetry 97 Oxygen Delivery Method Room Air Room Air Medical Decision Narrative: Patient states that she has taken Zofran before without complications or reactions [facility] HPI - General Stated complaint: covid test Time Seen by Provider: 11/03/20 13:53 Mode of Arrival: Ambulatory Source of Information: Patient Limitations: No Limitations Description of Symptoms (Recalled from Triage Doc. by RN): pt states she was exposed to her cousin last week who then tested covid positive friday. pt is having D/N/V and a dry cough. HEENT Symptoms (Recalled from RN notes): No Resp Symptoms (Recalled from RN notes): Yes (dry cough) Skin Symptoms (Recalled from RN notes): No MS Symptoms (Recalled from RN notes): No Functional Status (Recalled from RN notes): na - History of Present Illness Provider Complaint: Patient state that she was recently around her cousin that has since tested positive for COVID States that she has been having body aches. nausea, vomiting and diarrhea and dry cough State that she has been quarantining but wanted to get tested since she is now having symptoms - Related Data Home Medications Medication Instructions Recorded Confirmed cetirizine 10 mg capsule 10 mg PO DAILY cap 12/15/17 10/18/20 Lisinopril/Hydrochlorothiazide 2 tab PO DAILY 06/24/18 10/18/20 [Lisinopril-Hctz 20-12.5 mg Tab*] bisoproloL fumarate [Bisoprolol 10 mg PO DAILY 06/24/18 10/18/20 10mg Tablet] ARIPiprazole [Abilify 10mg 10 mg PO DAILY 07/18/20 10/18/20 Tablet] Gabapentin [Gabapentin 300mg Cap] 300 mg PO TID 07/18/20 10/18/20 Ibuprofen [Ibuprofen 200MG Capsule] 800 mg PO Q6HP PRN 07/18/20 10/18/20 Montelukast Sodium [Singulair 10mg 10 mg PO PM 07/18/20 10/18/20 tablet] Omeprazole [Omeprazole 40mg 40 mg PO DAILY 07/18/20 10/18/20 Capsule
[2020-11-03 14:22] VITALS: BP 141/69; PULSE 96; RESP 16; TEMP 36.9
== END 2020-11-03 14:29 | disposition home or self-care (01) ==
PROVIDERS: Emergency Provider Nurse Practitioner; PCP Pediatrics
DX: Z20.822 Contact with and (suspected) exposure to COVID-19 (principal); F41.9 Anxiety disorder, unspecified; I10 Essential (primary) hypertension; E78.5 Hyperlipidemia, unspecified; Z88.0 Allergy status to penicillin; Z88.2 Allergy status to sulfonamides; Z79.899 Other long term (current) drug therapy
CPT/HCPCS: 99202; G0463; U0003

== ENCOUNTER → 2021-01-16 12:46 | Outpatient (CLI) | payer OTHER, SELFPAY ==
--- NOTE | 2021-01-16 12:51 | XR_ITS ---
PROCEDURE: XR HIP LT 2-3V W/PELVIS CLINICAL INDICATION: LT hip pain COMPARISON: CR [id number] HIP RT 2-3V W/PELVIS IF PERFOR from 01/10/2017 FINDINGS: Study is somewhat limited technically due to patient's body habitus. There is slight decrease in the hip joint spaces suggesting mild osteoarthritic changes. Sclerosis is noted at the symphysis pubis with some minimal subchondral lucencies suggesting osteitis pubis. 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
--- NOTE | 2021-01-16 12:51 | XR_ITS ---
PROCEDURE: XR ANKLE LT MIN 3V CLINICAL INDICATION: Lt ankle fracture/ dos 07/18/20 Follow-up ORIF/fracture COMPARISON: CR XR ANKLE LT MIN 3V from 08/02/2020 CR XR ANKLE LT MIN 3V from 08/16/2020 CR XR ANKLE LT MIN 3V from 09/06/2020 CR XR ANKLE LT MIN 3V from 10/18/2020 FINDINGS: Lateral fibular bone plate once again noted. The fibular fracture line is somewhat less apparent. There remains good alignment. S/p syndesmotic repair of the distal tib fib with good alignment. Well-circumscribed calcific density is present distal to the medial malleolar tip unchanged. IMPRESSION: Good alignment status post healing distal fibular fracture Dictated by: Mason Louise MD 01/16/2021 17:54 Mason Louise MD in [place] 01/16/2021 17:54
== END ==
PROVIDERS: Visit Provider Orthopaedic Surgery
DX: S82.62XA Displaced fracture of lateral malleolus of left fibula, initial encounter for closed fracture (principal); M25.552 Pain in left hip
CPT/HCPCS: 73502; 73610

== ENCOUNTER → 2021-03-15 08:49 | Outpatient (CLI) | payer OTHER, SELFPAY ==
--- NOTE | 2021-03-15 09:03 | XR_ITS ---
PROCEDURE: XR ANKLE LT MIN 3V CLINICAL INDICATION: sp ORIF lt ankle, pt fell COMPARISON: CR XR KNEE LT 4V from 03/15/2021 FINDINGS: Three views of the left ankle show stable postop changes of ORIF of left ankle fracture with plate and screws fixating distal fibular fracture and 2 small plates across the distal tibia medially. Ankle joint mortise appears intact. No acute fracture or dislocation. By views of the left knee show no fracture or dislocation. Some soft tissue swelling is present. Small joint effusion. Joint spaces are normal. IMPRESSION: Stable postop changes of ORIF of left ankle fracture. No acute abnormality. Some soft tissue swelling about the left knee. No acute fracture or dislocation. Dictated by: Jagdish Sheridan MD 03/15/2021 09:35 Jagdish Sheridan MD in [place] 03/15/2021 09:35
== END ==
PROVIDERS: PCP Pediatrics; Visit Provider Orthopaedic Surgery
DX: Z09 Encounter for follow-up examination after completed treatment for conditions other than malignant neoplasm (principal); M25.562 Pain in left knee
CPT/HCPCS: 73564; 73610

== ENCOUNTER → 2021-03-20 12:50 | Outpatient (CLI) | payer OTHER, SELFPAY ==
--- NOTE | 2021-03-20 12:50 | MR_ITS ---
PROCEDURE INFORMATION: Exam: MR Left Lower Extremity Joint Without Contrast, Knee Exam date and time: 03/20/2021 12:50 PM Age: 35 years old Clinical indication: Pain; Knee; Left; Additional info: Evaluate for meniscal tear. Knee hyperextended and heard a pop and fell. Medial sided knee pain. Pain when bending and extending. Symptoms x1wk. Prior x-ray 03-15-21 TECHNIQUE: Imaging protocol: MR of the Left lower extremity joint without contrast. Exam focused on the knee. COMPARISON: 1. CR XR KNEE LT 4V 03/15/2021 9:[address] ANKLE LT WO CON 07/18/2020 10:41 AM FINDINGS: Bones and cartilage: There is thinning of the patellar cartilage at the median ridge and medial facet. No acute marrow edema. No dislocation of the knee. Joint spaces: Small patellofemoral joint effusion. Medial meniscus: Myxoid degeneration of the medial meniscus. Artifact limits evaluation of the body of the medial meniscus. No definitive tear involving the anterior and posterior horns of the medial meniscus which extend to an articulating surface. Lateral meniscus: A small focus of increased signal intensity is seen within the anterior horn of the lateral meniscus at the inferior articulating surface, suggestive of meniscal tear. Anterior cruciate ligament: No tear. Posterior cruciate ligament: Small amount of fluid adjacent to the PCL. No tear. Medial capsule and supporting structures: Edema surrounds the medial collateral ligament, consistent with a grade 1 MCL injury/sprain. Minimal fluid adjacent to the semimembranosus tendon, with semimembranosus tendinopathy. Lateral capsule and supporting structures: Unremarkable. No tear. Extensor mechanism of knee: Mild heterogeneous signal intensity of the distal patellar tendon, consistent with tendinosis; No visualized tear of the distal quadriceps tendon. Muscles: No visualized acute abnormality. Soft tissues: Soft tissue swelling visualized, most significant anteriorly. Mild edema within Hoffa's fat. IMPRESSION: 1. Grade 1 MCL injury/sprain. 2. Small patellofemoral joint effusion. 3. Soft tissue swelling visualized, most significant anteriorly. 4. Semimembranosus tendinopathy. 5. A small focus of increased signal intensity is seen within the anterior horn of the lateral meniscus, suggestive of meniscal tear. 6. Additional findings described above.
== END ==
PROVIDERS: PCP Pediatrics; Visit Provider Orthopaedic Surgery Sports Medicine
DX: S83.242A Other tear of medial meniscus, current injury, left knee, initial encounter (principal)
CPT/HCPCS: 73721

== ENCOUNTER 2021-05-23 08:40 | Emergency (ER) | payer OTHER, SELFPAY ==
[2021-05-23 08:40] VITALS: BP 117/64; PULSE 68; RESP 18; TEMP 36.5; O2SAT 97; BMI 44.1
--- NOTE | 2021-05-23 08:41 | ECG_ITS ---
APPROVED REPORT Exam: Resting ECG HR:52 bpm ECG Measurements Heart Rate 52 AXES SD 152 P 35 QRSd 64 QRS 49 QT 434 T 39 QTc 403 Conclusion Sinus bradycardia Late R wave progression, previously noted Abnormal ECG Electronically signed by : Lemuel Martinez MD 05/24/2021 17:36:39
--- NOTE | 2021-05-23 08:53 | CT_ITS ---
PROCEDURE INFORMATION: Exam: CT Head Without Contrast Exam date and time: 05/23/2021 8:53 AM Age: 35 years old Clinical indication: Injury or trauma; Fall; Abrasion; Eye; Right; Additional info: Syncope/injury TECHNIQUE: Imaging protocol: Computed tomography of the head without contrast. Radiation optimization: All CT scans at this facility use at least one of these dose optimization techniques: automated exposure control; mA and/or kV adjustment per patient size (includes targeted exams where dose is matched to clinical indication); or iterative reconstruction. COMPARISON: HEADWO CT head/brain wo con 08/05/2018 2:44 PM FINDINGS: Brain: Normal. No hemorrhage. Unremarkable white matter. No mass effect. Cerebral ventricles: No ventriculomegaly. Paranasal sinuses: There is mild inferior frontal, ethmoid and maxillary sinus mucosal thickening. Mastoid air cells: Visualized mastoid air cells are well aerated. Bones/joints: Unremarkable. No acute fracture. Soft tissues: Unremarkable. IMPRESSION: No acute hemorrhage or calvarial fracture.
--- NOTE | 2021-05-23 08:53 | XR_ITS ---
PROCEDURE INFORMATION: Exam: XR Chest Exam date and time: 05/23/2021 8:53 AM Age: 35 years old Clinical indication: Pain; Angina pectoris; Additional info: Syncope TECHNIQUE: Imaging protocol: XR of the chest. Views: 2 views. COMPARISON: CR CXR2V XR chest 2V 08/05/2018 2:12 PM FINDINGS: Lungs: Unremarkable. No consolidation. Pleural spaces: Unremarkable. No pleural effusion. No pneumothorax. Heart/Mediastinum: Unremarkable. No cardiomegaly. Bones/joints: Unremarkable. IMPRESSION: No acute findings.
--- NOTE | 2021-05-23 08:53 | HMH.EDGENADL ---
ED Disposition Clinical Impression: Syncope and collapse, Hypokalemia Facial contusion Qualifiers: Encounter type: initial encounter Qualified Code(s): S00.83XA - Contusion of other part of head, initial encounter Disposition: Home, Self-Care Condition on Discharge: Good Instructions: DI for Syncope in Adults (Fainting) Additional Instructions: You are being provided with a list of physicians available for follow-up of your condition. Please call a physician on this list to arrange a follow-up appointment as soon as possible. Also follow-up with Dr. Key, cardiology, and Dr. Gresham, neurology, for further evaluation. Additional instructions for SEIZURE OR LOSS OF CONSCIOUSNESS/POSSIBLE SEIZURE: NO DRIVING, BIKE RIDING, SWIMMING, TUB BATHING, LADDERS UNTIL CLEARED BY DOCTOR. RETURN IF SEIZURE RECURS. NO ALCOHOL OR STREET DRUGS. See your physician as soon as possible for follow-up. Return to the emergency department if seizure recurs. Referrals: Jerry Ellis [Primary Care Provider] - Payal Gresham MD [Staff Physician] - Darshan Key MD [Staff Physician] - - Critical Care Critical Care Time: No Attestation: On , the high probability of a clinically significant, sudden or life threatening deterioration of the following system(s) required my full and direct attention, intervention and personal management. The time I documented below is in addition to time spent performing reported procedures but includes the following listed in this critical care notation. Medical Decision Making - Alfredo Inquiry Pt receiving controlled substance: No Vital Signs: 05/23/21 08:40 05/23/21 09:02 05/23/21 10:06 Temperature 97.7 F Temperature Source Oral Pulse Rate 72 Pulse Rate [Left Radial] 68 Pulse Rate [Orthostatic Lying Left Radial] 60 Pulse Rate [Orthostatic Sitting Right Radial] 62 Pulse Rate [Orthostatic Standing Left Radial] 81 Respiratory Rate 18 18 Blood Pressure 134/85 Blood Pressure [Orthostatic Lying Right Arm] 124/82 Blood Pressure [Orthostatic Sitting Right Arm] 147/88 H Blood Pressure [Orthostatic Standing Right Arm] 135/89 Blood Pressure [Right Arm] 117/64 Blood Pressure Mean [Right Arm] 81 Blood Pressure Source [Right Arm] Automatic Cuff Blood Pressure Position [Right Arm] Sitting 02 Sat by Pulse Oximetry 97 99 Oxygen Delivery Method Room Air 05/23/21 10:09 Temperature Temperature Source Pulse Rate 70 Pulse Rate [Left Radial] Pulse Rate [Orthostatic Lying Left Radial] Pulse Rate [Orthostatic Sitting Right Radial] Pulse Rate [Orthostatic Standing Left Radial] Respiratory Rate 18 Blood Pressure 134/85 Blood Pressure [Orthostatic Lying Right Arm] Blood Pressure [Orthostatic Sitting Right Arm] Blood Pressure [Orthostatic Standing Right Arm] Blood Pressure [Right Arm] Blood Pressure Mean [Right Arm] Blood Pressure Source [Right Arm] Blood Pressure Position [Right Arm] 02 Sat by Pulse Oximetry 98 Oxygen Delivery Method - Lab Data Lab Results 05/23/21 08:45: Sodium 141, Potassium 3.2 L, Chloride 107, Carbon Dioxide 25, Anion Gap 12.2, BUN 4 L, Creatinine 0.80, Estimated Creat Clear 97, Estimated GFR 81, Est GFR ( Amer) 98, Glucose 106 H, Calcium 9.0, Total Bilirubin 0.5, AST 52 H, ALT 24, Alkaline Phosphatase 102, Troponin I < 0.01, Total Protein 7.1, Albumin 4.0, Globulin 3.1, Albumin/Globulin Ratio 1.3 05/23/21 08:45: WBC 4.5 L, RBC 5.27, Hgb 14.8, Hct 44.7, MCV 84.9, MCH 28.1, MCHC 33.1, RDW 13.6, Plt Count 411, MPV 7.7, Neut % (Auto) 52.9, Lymph % (Auto) 40.2, Foster % (Auto) 5.3, Eos % (Auto) 1.1, Baso % (Auto) 0.4, Neut # (Auto) 2.4, Lymph # (Auto) 1.8, Foster # (Auto) 0.2, Eos # (Auto) 0.1, Baso # (Auto) 0.0 05/23/21 08:45: Serum HCG, Qual Negative 05/23/21 08:55: Urine Color Yellow, Urine Appearance Clear, Urine pH 6.5, Ur Specific [place] 1.010, Urine Protein Negative, Urine Glucose (UA) Negative, Urine Ketones Negative, Urine Bloo
[2021-05-23 09:00] LABS: Microscopic, Urine URINE MICROSCOPIC (MICROSCOPIC)
[2021-05-23 09:02] VITALS: BP 124/82; BP 135/89; BP 147/88; PULSE 60; PULSE 62; PULSE 81
[2021-05-23 09:03] LABS: Appearance,Urine CLEAR (Clear); Bilirubin,Urine Negative (Negative); Blood, Urine Negative (Negative); Color,Urine YELLOW (Yellow); Glucose,Urine (UA) Negative (Negative); Ketones,Urine Negative (Negative); Leukocyte Esterase,Urine Negative (Negative); Nitrate,Urine Negative (Negative); PH,Urine 6.5 (5.0-8.5); Protein,Urine Negative (Negative); Urobilinogen,Urine 0.2 EU/dl (0.2)
--- NOTE | 2021-05-23 09:04 | CT_ITS ---
PROCEDURE INFORMATION: Exam: CT Maxillofacial Without Contrast Exam date and time: 05/23/2021 9:04 AM Age: 35 years old Clinical indication: Facial injury from fall TECHNIQUE: Imaging protocol: Computed tomography images of the face without contrast. COMPARISON: HEADWO CT head/brain wo con 08/05/2018 2:44 PM FINDINGS: Orbital cavity: Orbits are normal. Globes are unremarkable. Bones/joints: No acute fracture. Paranasal sinuses: There is mild frontal, ethmoid, sphenoid and maxillary sinus mucosal thickening. Soft tissues: Unremarkable. IMPRESSION: No facial fracture.
[2021-05-23 09:06] LABS: Chloride 107 mmol/L (98-107); Potassium 3.2 mmoL/L (3.5-5.1); Sodium 141 mmol/L (136-145)
[2021-05-23 09:09] LABS: Alanine Aminotransferase 24 U/L (12-78); Albumin/Globulin Ratio 1.3 (1.1-1.8); Alkaline Phosphatase 102 U/L (38-126); Anion Gap 12.2 mEq/L (5-15); Aspartate Amino Transferase 52 U/L (14-36); Bilirubin,Total 0.5 mg/dl (0.2-1.3); Blood Urea Nitrogen 4 mg/dl (7-17); Carbon Dioxide 25 mmol/L (22.0-30.0); Creatinine Clearance Estimated 97 mL/min (50-200); Estimated Glomerular Filt Rate 81 ml/min (>60); GFR (African American) 98 ML/MIN (>60); Globulin 3.1 g/dL (1.3-3.2); Total Protein,Serum 7.1 g/dl (6.3-8.2)
[2021-05-23 09:10] LABS: Glucose 106 mg/dl (74-100)
[2021-05-23 09:12] LABS: Squamous Epithelial Cell,Urine Occasional #/hpf (0-5)
[2021-05-23 09:13] LABS: Basophils % 0.4 % (0.1-2.0); Eosinophils # 0.1 K/mm3 (0.0-0.4); Eosinophils % 1.1 % (0.1-12.0); Hematocrit 44.7 % (37.0-47.0); Hemoglobin 14.8 g/dL (12.2-16.2); Lymphocytes # 1.8 K/mm3 (0.7-4.5); Lymphocytes % 40.2 % (10-50); Mean Corpuscular HGB Conc 33.1 g/dL (31.8-35.4); Mean Corpuscular Hemoglobin 28.1 pg (27.0-31.2); Mean Corpuscular Volume 84.9 fl (81-99); Mean Platelet Volume 7.7 fl (7.4-10.4); Monocytes # 0.2 K/mm3 (0.1-1.0); Monocytes % 5.3 % (1.7-9.3); Neutrophils # 2.4 K/mm3 (1.8-7.8); Neutrophils % 52.9 % (37.0-80.0); Platelet Count 411 K/mm3 (142-424); Red Blood Count 5.27 M/mm3 (4.20-5.40); Red Cell Distribution Width 13.6 % (11.5-17.5); White Blood Count 4.5 K/mm3 (4.8-10.8)
[2021-05-23 09:16] LABS: Benzodiazepines Screen,Urine Negative ng/ml (<200)
[2021-05-23 09:17] LABS: Amphetamine/Metha Screen,Urine Negative ng/ml (<1000)
[2021-05-23 09:18] LABS: Barbiturates Screen,Urine Negative ng/ml (<200); Cannabinoid Screen,Urine Positive ng/ml (<50)
[2021-05-23 09:19] LABS: Cocaine Screen,Urine Negative ng/ml (<300); Methadone Screen,Urine Negative ng/ml (<300)
[2021-05-23 09:20] LABS: Opiate Screen,Urine Negative ng/ml (<300)
[2021-05-23 09:21] LABS: Phencyclidine Screen,Urine Negative ng/ml (<25)
[2021-05-23 09:22] LABS: Troponin I < 0.01 ng/ml (0.00-0.034)
[2021-05-23 09:23] LABS: HCG Qualitative, Serum Negative (Negative)
[2021-05-23 10:06] VITALS: BP 134/85; PULSE 72; RESP 18; O2SAT 99
[2021-05-23 10:09] VITALS: BP 134/85; PULSE 70; RESP 18; O2SAT 98
[2021-05-23 10:42] VITALS: BP 127/74; PULSE 68; RESP 18; TEMP 36.5; O2SAT 98
== END 2021-05-23 10:43 | disposition home or self-care (01) ==
PROVIDERS: Emergency Provider Emergency Medicine; PCP Pediatrics
DX: R55 Syncope and collapse (principal); S00.83XA Contusion of other part of head, initial encounter; E87.6 Hypokalemia; W18.39XA Other fall on same level, initial encounter; Y92.014 Private driveway to single-family (private) house as the place of occurrence of the external cause; I10 Essential (primary) hypertension; F41.9 Anxiety disorder, unspecified; E78.5 Hyperlipidemia, unspecified; R01.1 Cardiac murmur, unspecified; F12.10 Cannabis abuse, uncomplicated; Z88.0 Allergy status to penicillin; Z88.2 Allergy status to sulfonamides
CPT/HCPCS: 70450; 70486; 71046; 80053; 80305; 81001; 84484; 84703; 85025; 93005; 99284

== ENCOUNTER → 2021-06-06 14:10 | Outpatient (CLI) | payer OTHER, SELFPAY ==
[2021-06-06 15:33] LABS: Anion Gap 14.1 mEq/L (5-15); Blood Urea Nitrogen 5 mg/dl (7-17); Calcium 9.5 mg/dl (8.4-10.2); Carbon Dioxide 28 mmol/L (22.0-30.0); Chloride 102 mmol/L (98-107); Estimated Glomerular Filt Rate 94 ml/min (>60); GFR (African American) 114 ML/MIN (>60); Glucose 87 mg/dl (74-100); Potassium 4.1 mmoL/L (3.5-5.1); Sodium 140 mmol/L (136-145)
== END ==
PROVIDERS: PCP Nurse Practitioner Family; Visit Provider Urology
DX: R06.09 Other forms of dyspnea (principal); R07.9 Chest pain, unspecified; R42 Dizziness and giddiness; R55 Syncope and collapse; I11.9 Hypertensive heart disease without heart failure; E78.5 Hyperlipidemia, unspecified; R60.9 Edema, unspecified
CPT/HCPCS: 36415; 80048; 93270

== ENCOUNTER → 2021-06-11 11:23 | Outpatient (CLI) | payer OTHER, SELFPAY ==
--- NOTE | 2021-06-11 11:23 | NM_ITS ---
APPROVED REPORT Exam: Nuclear Stress Test Indication: DYSRHYTHMIA, OBESITY, HTN, HYPERLIPIDEMIA, FM HX., C.P., SOB, PALPITATIONS, SYNCOPE, EDEMA Patient Location: Outpatient Stress Tech: Autumn Weston [place] Tech:Nathalie Em, ARRT, RT (R)(N) Ht: 5 ft 8 in Wt: 285 lbs Bra Size: 46DD HR: 62 bpm BP: 122/52 mmHg BSA: 2.38 m2 BMI: 43.3 History: DYSRHYTHMIA, OBESITY, HTN, HYPERLIPIDEMIA, FM HX., C.P., SOB, PALPITATIONS, SYNCOPE, EDEMA PRONE IMAGES MAY NOT BE OF GOOD COLLITY DUE TO MOTION. Procedure: Patient received a 0.4 mg of intravenous Lexiscan, resting heart rate 62 bpm, resting blood pressure 122/52 mmHg, with Lexiscan maximum heart rate achived was 88 bpm which is Less than 85 % of the maximum predicted heart rate and blood pressure was 135/70 mmHg. With Lexiscan, patient denied any complaint of chest pain. Electrocardiogram Resting electrocardiogram showed sinus rhythm, with Lexiscan there is less than 1.[address] segment depression noted from the baseline EKG. The EKG portion of the Lexiscan is nondiagnostic. Cardiac Stress and Resting SPECT Images: Cardiac Stress and Resting SPECT images were obtained using technetium 99m Myoview 29.9 mCi stress and 10.14 mCi at rest. Gated SPECT for analysis of segmental wall motion and calculation of the ejection fraction also done. Prone images were also obtained. Cardiac stress and resting SPECT images show reversible ischemia in moderate-sized area involving the anterolateral wall, computer derived ejection fraction is 61% with no regional wall motion abnormality, right ventricle is normal size and contractility. Conclusion: 1. The EKG portion of the Lexiscan is nondiagnostic. 2. Scintigraphic evidence of reversible ischemia involving the anterolateral wall, computer derived ejection fraction 61% with no regional wall motion abnormality, right ventricle is normal size and contractility. 3. Abnormal Lexiscan Myoview study, this study is however technically limited due to patient's body habitus, clinical correlation is recommended. Electronically signed by : Cooper Funk MD 06/11/2021 18:25:10
--- NOTE | 2021-06-11 13:26 | CA_ITS ---
APPROVED REPORT EXAM: Comprehensive 2D, Doppler, and color-flow Echocardiogram Auto Machinist: Ashley Pena CRT Ht: 5 ft 8 in Wt: 317lbs BSA: 2.49 BP: 151/82 mmHg Indications: Chest Pain, Murmur, Syncope, Palpitations, Hyperlipidemia, Hypertension/HDD 2D Dimensions LVOT 1.99 cm (M/F) 1.5-2.5 M-Mode Dimensions RVDd 2.35 cm (0.9-2.6) LA Diam 3.98 cm (1.9-4.0) LVDd 5.28 cm (3.5-5.7) Ao Diam 3.77 cm (2.0-3.7) LVDs 3.25 cm (3.5-5.7) IVSd 1.25 cm (0.6-1.1) PWd 0.64 cm (0.6-1.1) EF (Teich) 68.30% FS 38.40% EDV (Teich) 134.20 mL TAPSE 2.43 (<1.7) ESV (Teich) 42.50 mL LV Diastology E Decel Time 200.00 (160-240 msec) E/A Ratio 0.99 MED E' 10.10 (< 7 cm/sec) MED A' 10.80 cm/s E'/MED E' Ratio 8.19 (>14) LAT E' 12.90 (<10 cm/sec) LAT A' 9.70 cm/s E/LAT E' Ratio 6.41 (>14) Aortic Valve AO Peak GR. 8.50 mmHg Mitral Valve MV E Max [place]. 83.00 (40-130 cm/s) MV A Velocity 83.00 (40-130 cm/s) E/A Ratio 0.99 MV Decel. Time 200.00 (160-240 ms) MV PHT 59.00 ms Pulmonary Valve PV Peak Velocity 39.00 (50-150 cm/s) Tricuspid Valve TR P. Velocity 229.00 cm/s RAP Estimate 10.00 mmHg RVSP 31.00 mmHg Left Ventricle Technically difficult study because of the patient fact in poor acoustic windows. Left atrium is mildly enlarged, left ventricle is normal size, there is no concentric left ventricular hypertrophy, visually estimated ejection fraction 55% with no regional wall motion abnormality. Diastolic parameters are within normal range. Right Ventricle Right atrium and right ventricle are normal size and contractility. Aortic Valve Aortic valve is minimally thickened and fibrosed, there is no aortic stenosis or aortic insufficiency. Mitral Valve Mitral valve grossly normal, there is trace mitral regurgitation. Tricuspid Valve Tricuspid valve grossly normal, there is trace tricuspid regurgitation, tricuspid regurgitation jet velocity is inadequate for calculation of the right ventricular systolic pressure. Pulmonic Valve Pulmonic valve is poorly visualized. Great Vessels Aortic root is normal size. Pericardium No significant pericardial effusion noted. Conclusion 1. Technically difficult study, normal left ventricular size, preserved left ventricular systolic function, visually estimated ejection fraction 55% with no regional wall motion abnormality, diastolic parameters are within normal range. 2. Trace mitral and tricuspid regurgitation. 3. No significant pericardial effusion noted. Electronically signed by : Cooper Funk MD 06/12/2021 07:15:35
--- NOTE | 2021-06-11 13:56 | HMH.ITSHM ---
Current Home Medications as stated by this patient Funmilayo Rain or promotions representative. []SPIRONOLACTONE METOPROLOL LISINOPRIL CETIRIZINE TIZANIDINE TEMAZEPAM SERTRALINE ONDANSETRON OMEPRAZOLE MONTELUKAST GABAPENTIN ARIPIPRAZOLE
--- NOTE | 2021-06-11 13:59 | CA_ITS ---
APPROVED REPORT Technologist: Autumn Weston, Ht: 5 ft 8 in Wt: 317 lbs BSA: 2.49 m2 HR: 62 bpm BP: 122/52 mmHg Medical History Medications: Omeprazole,,,,, Gabapentin,,,,, Temazepam,,,,, Sertraline,,,,, CetIRIZINE,,,,, ONdansetron,,,,, Aripiprazole,,,,, Tizadine,,,,, Monetlukast,,,,, Stress Test Details Test: LEXISCAN HR Resting HR: 56 bpm Max Heart Rate (APMHR): 183.883114 bpm Max HR Achieved: 92 bpm Target HR (85% APMHR): 155.705335 bpm % of APMHR: 50.27 Recovery HR: 77 bpm BP Resting BP: 122/52 mmHg Max BP: 144/64 mmHg Recovery BP: 144.0/64.0 mmHg ECG Resting ECG: Sinus Bradycardia, NSSTT abnormalities inferiorly Clinical Reason for Termination: Completed Protocol Exercise duration: 04:05 min Highest Stage Achieved: Exercise capacity: 1.0 METs Stress ECG Conclusion Symptoms: (+) CP, Nausea, Dizziness Arrhythmias/Ectopy: None ST-T Changes: None Conclusion: Non-Diagnostic Lexiscan Stress Test. Electronically signed by : Cooper Funk MD 06/11/2021 17:26:40
== END ==
PROVIDERS: PCP Nurse Practitioner Family; Visit Provider Urology
DX: R07.9 Chest pain, unspecified (principal); R55 Syncope and collapse; R42 Dizziness and giddiness; R06.09 Other forms of dyspnea; R60.9 Edema, unspecified; E78.5 Hyperlipidemia, unspecified; I10 Essential (primary) hypertension; I11.9 Hypertensive heart disease without heart failure
CPT/HCPCS: 78452; 93017; 93306; A9502; J2785

== ENCOUNTER → 2021-06-30 09:11 | Outpatient (CLI) | payer OTHER, SELFPAY ==
[2021-06-30 09:27] LABS: Basophils # 0.1 K/mm3 (0-0.2); Basophils % 1.1 % (0.1-2.0); Eosinophils # 0.2 K/mm3 (0.0-0.4); Eosinophils % 2.6 % (0.1-12.0); Hematocrit 43.9 % (37.0-47.0); Hemoglobin 14.7 g/dL (12.2-16.2); Lymphocytes # 2.5 K/mm3 (0.7-4.5); Lymphocytes % 35.9 % (10-50); Mean Corpuscular HGB Conc 33.5 g/dL (31.8-35.4); Mean Corpuscular Hemoglobin 28.9 pg (27.0-31.2); Mean Corpuscular Volume 86.3 fl (81-99); Mean Platelet Volume 8.3 fl (7.4-10.4); Monocytes # 0.3 K/mm3 (0.1-1.0); Monocytes % 3.8 % (1.7-9.3); Neutrophils # 3.9 K/mm3 (1.8-7.8); Neutrophils % 56.6 % (37.0-80.0); Platelet Count 392 K/mm3 (142-424); Red Blood Count 5.09 M/mm3 (4.20-5.40); Red Cell Distribution Width 13.8 % (11.5-17.5); White Blood Count 6.9 K/mm3 (4.8-10.8)
[2021-06-30 10:43] LABS: Anion Gap 11.2 mEq/L (5-15); Blood Urea Nitrogen 4 mg/dl (7-17); Calcium 9.2 mg/dl (8.4-10.2); Carbon Dioxide 23 mmol/L (22.0-30.0); Chloride 106 mmol/L (98-107); Estimated Glomerular Filt Rate 94 ml/min (>60); GFR (African American) 114 ML/MIN (>60); Glucose 108 mg/dl (74-100); Potassium 4.2 mmoL/L (3.5-5.1); Sodium 136 mmol/L (136-145)
== END ==
PROVIDERS: Visit Provider Nurse Practitioner Family
DX: Z01.812 Encounter for preprocedural laboratory examination (principal); Z11.52 Encounter for screening for COVID-19; U07.1 COVID-19; R06.09 Other forms of dyspnea; I20.8 Other forms of angina pectoris; R00.1 Bradycardia, unspecified; R42 Dizziness and giddiness; R94.39 Abnormal result of other cardiovascular function study; I63.9 Cerebral infarction, unspecified; I10 Essential (primary) hypertension
CPT/HCPCS: 36415; 80048; 85025; C9803; U0003; U0005

== ENCOUNTER 2021-07-15 12:42 | Emergency (ER) | payer OTHER, SELFPAY ==
[2021-07-15 12:45] VITALS: BP 120/79; PULSE 64; RESP 17; TEMP 36.6; O2SAT 100; BMI 40.7
--- NOTE | 2021-07-15 13:46 | HMH.EDUTC ---
[facility] [place] Disposition Clinical Impression: Shoulder sprain Qualifiers: Encounter type: initial encounter Shoulder sprain type: unspecified sprain Laterality: right Qualified Code(s): S43.401A - Unspecified sprain of right shoulder joint, initial encounter Disposition: Home, Self-Care Condition on Discharge: Good Instructions: How to Use a Sling, DI for Low Back Pain, How To Perform RICE (Rest, Ice, Compress, Elevate), DI for Shoulder Sprain Additional Instructions: *Ibuprofen (Motrin )as directed on package with meal as needed for pain/inflammation if you can take it if not you may take Tylenol *Not additional anti-inflammatory like motrin, aleve, advil with the above amount of ibuprofen. You can still take Tylenol every 4 hours as needed if you need something else for pain *Ice 20 minutes every 2 hours for the first 48 hours after the initial injury followed by moist heat every 20 minutes 3-4 times a day to affected area *Keep this area active, no movement leads to more stiffness, However take it easy and avoid heavy lifting pushing or pulling *Follow up with you family doctor if no improvement for further treatment You may call back to the [facility] later this evening for the official reading of your xray Return if needed Straight to ER if any life threatening symptoms Over the counter lidocaine patches may help with pain in shoulder and back Referrals: Kaylin Sherman APRN [Primary Care Provider] - As needed Time of Disposition: 14:45 Medical Decision Making - Alfredo Inquiry Pt receiving controlled substance: No Alfredo was queried for this patient: No Vital Signs: 07/15/21 12:45 07/15/21 14:47 Temperature 97.9 F 97.9 F Temperature Source Oral Pulse Rate 64 Pulse Rate [Right Brachial] 64 Respiratory Rate 17 17 Blood Pressure 120/79 Blood Pressure [Right Arm] 120/79 Blood Pressure Mean [Right Arm] 92 Blood Pressure Source [Right Arm] Automatic Cuff Blood Pressure Position [Right Arm] Sitting 02 Sat by Pulse Oximetry 100 Oxygen Delivery Method Room Air - Lab Data Lab results reviewed: Yes: I reviewed the patient's lab results. Lab Results 07/15/21 13:58: Tst Clinic Negative - Radiology Data #1 Image(s): Shoulder Image Reviewed: Yes I reviewed the patient's radiology image Preliminary Findings: No Fracture Seen [facility] [place] HPI - General Stated complaint: AO 1010, lower back and right shoulder swollen Time Seen by Provider: 07/15/21 13:46 Mode of Arrival: Ambulatory Source of Information: Patient Limitations: No Limitations Description of Symptoms (Recalled from Triage Doc. by RN): PATIENT STATES SHE FELL 1 WEEK AGO. C/O PAIN IN SHOULDER, HIPS, LOWER BACK AND BILATERAL KNEES HEENT Symptoms (Recalled from RN notes): No Resp Symptoms (Recalled from RN notes): No Skin Symptoms (Recalled from RN notes): No MS Symptoms (Recalled from RN notes): Yes Functional Status (Recalled from RN notes): WNL - History of Present Illness Provider Complaint: Patient states that she fell about a week ago and landed on her knees and right shoulder area States that since then she has been having pain on and off in her knees and lower back but her shoulder has continued to have pain when she tries to raise it so today she came in to get it checked out - Related Data Home Medications Medication Instructions Recorded Confirmed cetirizine 10 mg capsule 10 mg PO DAILY cap 12/15/17 06/27/21 ARIPiprazole [Abilify 10mg 10 mg PO DAILY 07/18/20 06/27/21 Tablet] Gabapentin [Gabapentin 300mg Cap] 300 mg PO TID 07/18/20 06/27/21 Montelukast Sodium [Singulair 10mg 10 mg PO PM 07/18/20 06/27/21 tablet] Omeprazole [Omeprazole 40mg 40 mg PO DAILY 07/18/20 06/27/21 Capsule] Sertraline HCl [Zoloft 50mg tablet] 50 mg PO DAILY 07/18/20 06/27/21 Temazepam [Restoril 15mg Capsule] 15 mg PO HSP PRN 07/18/20 06/27/21 Tizanidine HCl [Zanaflex 4mg 4 mg PO TIDP PRN 07/18/20 06/27/21 tablet] Previous Rx's
--- NOTE | 2021-07-15 13:48 | XR_ITS ---
PROCEDURE INFORMATION: Exam: XR Right Shoulder Exam date and time: 07/15/2021 1:48 PM Age: 35 years old Clinical indication: Pain; Shoulder; Right; Additional info: Fallpain and swelling TECHNIQUE: Imaging protocol: XR Right shoulder. Views: 2 or more views. COMPARISON: CR XR CHEST 2V 05/23/2021 9:05 AM FINDINGS: Bones/joints: Normal. Soft tissues: Normal. IMPRESSION: No acute findings.
[2021-07-15 13:59] LABS: UTC Pregnancy Test, Urine Negative (Negative)
[2021-07-15 14:47] VITALS: BP 120/79; PULSE 64; RESP 17; TEMP 36.6; O2SAT 100
== END 2021-07-15 14:55 | disposition home or self-care (01) ==
PROVIDERS: Emergency Provider Nurse Practitioner; PCP Nurse Practitioner Family
DX: S43.401A Unspecified sprain of right shoulder joint, initial encounter (principal); M54.50 Low back pain, unspecified; W01.0XXA Fall on same level from slipping, tripping and stumbling without subsequent striking against object, initial encounter; I10 Essential (primary) hypertension; E78.5 Hyperlipidemia, unspecified; F41.9 Anxiety disorder, unspecified; R01.1 Cardiac murmur, unspecified; Z88.0 Allergy status to penicillin; Z88.2 Allergy status to sulfonamides
CPT/HCPCS: 73030; 81025; 99202; G0463

== ENCOUNTER 2021-08-30 08:40 | Day surgery (SDC) | payer OTHER, SELFPAY ==
[2021-08-30] VITALS (11 sets, daily range): BP systolic 108–165; BP diastolic 55–89; PULSE 48–76; RESP 16; TEMP 36.9; O2SAT 93–98; BMI 48.2
--- NOTE | 2021-08-30 07:10 | IR_ITS ---
APPROVED REPORT Patient Location: Outpatient PROCEDURES Left heart catheterization Left ventriculogram Selective coronary angiogram INDICATION Angina pectoris, Abnormal stress test Informed consent was obtained prior to the procedure. COMPLICATIONS NONE Estimated Blood Loss: LESS THAN 10 ML TECHNIQUE One percent lidocaine used to anesthetize the right anterior aspect of the wrist. The right radial artery was accessed via the Seldinger technique. A 6 Georgian sheath was placed in the right radial artery. 2.5 mg of verapamil, 800 mcg of nitroglycerin, 1mg Lidocaine and 5000 U Heparin were given through the arterial sheath. The trap catheter was also used to perform left heart catheterization, left ventriculogram and selective coronary angiogram. At the end of the procedure the sheath was removed good hemostasis was achieved using Traclet band, patient was transferred to the postop holding area in stable condition. ANGIOGRAPHIC RESULTS The left main artery Normal The left anterior descending artery Normal The circumflex artery Normal The right coronary artery Dominant normal The FERNANDEZ ventriculogram reveals Slightly hyperdynamic at 70% The left ventricular end-diastolic pressure 20 mmHg IMPRESSION Normal coronary arteries Hyperdynamic ventricle consistent with diastolic dysfunction Elevated LVEDP PLAN 1. Medical management Electronically signed by : Darshan Key MD 08/30/2021 13:52:44
== END 2021-08-30 14:04 | disposition home or self-care (01) ==
LOC: CATHLAB 08:40
PROVIDERS: PCP Nurse Practitioner Family; Visit Provider Internal Medicine
DX: I20.9 Angina pectoris, unspecified (principal); I10 Essential (primary) hypertension; R94.39 Abnormal result of other cardiovascular function study; Z79.899 Other long term (current) drug therapy
CPT/HCPCS: 93458; 99152; C1725; C1760; C1769; J1644; Q9967

== ENCOUNTER 2021-09-29 04:49 | Emergency (ER) | payer OTHER, SELFPAY ==
[2021-09-29 04:49] VITALS: BP 94/50; PULSE 62; RESP 20; TEMP 36.7; O2SAT 97; BMI 34.9
--- NOTE | 2021-09-29 04:53 | ECG_ITS ---
APPROVED REPORT Exam: Resting ECG HR:67 bpm ECG Measurements Heart Rate 67 AXES ID 166 P 47 QRSd 90 QRS 66 QT 438 T 54 QTc 462 Conclusion Normal sinus rhythm with sinus arrhythmia Normal ECG Electronically signed by : Lemuel Martinez MD 09/29/2021 09:47:56
--- NOTE | 2021-09-29 04:59 | XR_ITS ---
PROCEDURE INFORMATION: Exam: XR Chest Exam date and time: 09/29/2021 4:59 AM Age: 36 years old Clinical indication: Sternal or substernal pain; Additional info: Cp TECHNIQUE: Imaging protocol: XR of the chest. Views: 2 views. COMPARISON: CR XR CHEST 2V 05/23/2021 9:05 AM FINDINGS: Lungs: Unremarkable. No consolidation. Pleural spaces: Unremarkable. No pleural effusion. No pneumothorax. Heart/Mediastinum: Unremarkable. No cardiomegaly. Bones/joints: There is a mild scoliosis. IMPRESSION: No acute findings.
[2021-09-29 05:05] LABS: Basophils # 0.2 K/mm3 (0-0.2); Basophils % 2.5 % (0.1-2.0); Eosinophils % 12.1 % (0.1-12.0); Hematocrit 43.3 % (37.0-47.0); Hemoglobin 13.7 g/dL (12.2-16.2); Lymphocytes # 3.1 K/mm3 (0.7-4.5); Lymphocytes % 37.3 % (10-50); Mean Corpuscular HGB Conc 31.6 g/dL (31.8-35.4); Mean Corpuscular Hemoglobin 28.7 pg (27.0-31.2); Mean Corpuscular Volume 90.6 fl (81-99); Mean Platelet Volume 7.3 fl (7.4-10.4); Monocytes # 0.3 K/mm3 (0.1-1.0); Monocytes % 3.6 % (1.7-9.3); Neutrophils # 3.7 K/mm3 (1.8-7.8); Neutrophils % 44.5 % (37.0-80.0); Platelet Count 426 K/mm3 (142-424); Red Blood Count 4.77 M/mm3 (4.20-5.40); White Blood Count 8.3 K/mm3 (4.8-10.8)
--- NOTE | 2021-09-29 05:06 | HMH.EDGENADL ---
ED Disposition Clinical Impression: Chest pain, atypical Disposition: Home, Self-Care Condition on Discharge: Good Referrals: Kaylin Sherman APRN [Primary Care Provider] - - Critical Care Critical Care Time: No Attestation: On 09/29/21, the high probability of a clinically significant, sudden or life threatening deterioration of the following system(s) required my full and direct attention, intervention and personal management. The time I documented below is in addition to time spent performing reported procedures but includes the following listed in this critical care notation. Medical Decision Making - Medical Records Medical records reviewed: Yes: I reviewed the patient's medical records. - Alfredo Inquiry Pt receiving controlled substance: No Vital Signs: 09/29/21 04:49 Temperature 98.1 F Temperature Source Oral Pulse Rate [Right] 62 Respiratory Rate 20 Blood Pressure [Right Arm] 94/50 L Blood Pressure Mean [Right Arm] 64 02 Sat by Pulse Oximetry 97 - Lab Data Lab Results 09/29/21 04:52: WBC 8.3, RBC 4.77, Hgb 13.7, Hct 43.3, MCV 90.6, MCH 28.7, MCHC 31.6 L, RDW 14.0, Plt Count 426 H, MPV 7.3 L, Neut % (Auto) 44.5, Lymph % (Auto) 37.3, [place] % (Auto) 3.6, Eos % (Auto) 12.1 H, Baso % (Auto) 2.5 H, Neut # (Auto) 3.7, Lymph # (Auto) 3.1, [place] # (Auto) 0.3, Eos # (Auto) 1.0 H, Baso # (Auto) 0.2 09/29/21 04:52: Sodium 138, Potassium 3.2 L, Chloride 101, Carbon Dioxide 30, Anion Gap 10.2, BUN 6 L, Creatinine 0.90, Estimated Creat Clear 140, Estimated GFR 70, Est GFR ( Amer) 85, Glucose 95, Calcium 9.2, Total Bilirubin 0.4, AST 28, ALT 13, Alkaline Phosphatase 77, Troponin I < 0.01, Total Protein 7.2, Albumin 4.1, Globulin 3.1, Albumin/Globulin Ratio 1.3 09/29/21 04:52: D-Dimer 0.61 H Result diagrams: 09/29/21 04:52 09/29/21 04:52 Orders (Tests/Meds): ED MEDICATIONS Discontinued Medications Generic Name Dose Route Start Last Admin Trade Name Garry PRN Reason Stop Dose Admin Iopamidol 70 ml 09/29/21 06:41 09/29/21 06:42 Iopamidol-370 (76%);100ml Bottle IV 09/29/21 06:42 70 ml ONCE ONE Administration Ketorolac Tromethamine 15 mg 09/29/21 05:19 09/29/21 05:36 Ketorolac 30mg/Ml Vial IV 09/29/21 05:20 15 mg ONCE ONE Administration Morphine Sulfate 4 mg 09/29/21 05:20 09/29/21 05:36 Morphine 4mg/Ml Syringe IV 09/29/21 05:21 4 mg ONCE ONE Administration ORDERS Category Date Time Status Troponin I Q3H Lab 09/29/21 08:00 Ordered Troponin I Q3H Lab 09/29/21 11:00 Ordered Medical Decision Narrative: Patient is a 36-year-old female who presents the ED today for further evaluation of chest pain. Patient is well-appearing on initial evaluation, in no acute distress, vital signs showing mild hypotension, but she is otherwise asymptomatic from this. We will order CBC, CMP, troponin, chest x-ray, D-dimer. On further discussion with the patient, she has a family member who had a hypercoagulable disorder, and sudden in the 50th year of life, given this and her slightly elevated D-dimer 0.63, we will pursue CT angio imaging, I discussed this with the patient and she is amenable. CT scan reviewed by radiologist with no evidence of an embolus. These results have been delivered to the patient, patient is complaining that her pain is starting back on her a little bit, we will give her oxycodone, given that this is likely musculoskeletal having ruled out cardiac, pulmonary causes of her pain. Patient given return precautions return to the ED with any new or worsening symptoms and she has verbalized understanding with this plan. General Adult HPI - General Chief complaint: Chest Pain Stated complaint: Chest Pain Time Seen by Provider: 09/29/21 04:50 Mode of Arrival: EMS Source of Information: Patient, Medical Record Limitations: No Limitations Description of Symptoms (Recalled from ER Triage Doc. by RN): pt c/o chest pain rating 8/10 - History of Pre
[2021-09-29 05:12] LABS: Alanine Aminotransferase 13 U/L (12-78); Albumin Level 4.1 g/dl (3.5-5.0); Albumin/Globulin Ratio 1.3 (1.1-1.8); Alkaline Phosphatase 77 U/L (38-126); Anion Gap 10.2 mEq/L (5-15); Aspartate Amino Transferase 28 U/L (14-36); Bilirubin,Total 0.4 mg/dl (0.2-1.3); Blood Urea Nitrogen 6 mg/dl (7-17); Calcium 9.2 mg/dl (8.4-10.2); Carbon Dioxide 30 mmol/L (22.0-30.0); Chloride 101 mmol/L (98-107); Creatinine Clearance Estimated 140 mL/min (50-200); Estimated Glomerular Filt Rate 70 ml/min (>60); GFR (African American) 85 ML/MIN (>60); Globulin 3.1 g/dL (1.3-3.2); Glucose 95 mg/dl (74-100); Potassium 3.2 mmoL/L (3.5-5.1); Sodium 138 mmol/L (136-145); Total Protein,Serum 7.2 g/dl (6.3-8.2)
[2021-09-29 05:30] LABS: Troponin I < 0.01 ng/ml (0.00-0.034)
[2021-09-29 05:42] LABS: D-Dimer 0.61 ug/mL (0.0-0.5)
--- NOTE | 2021-09-29 05:58 | CT_ITS ---
PROCEDURE INFORMATION: Exam: CTA Chest With Contrast Exam date and time: 09/29/2021 5:58 AM Age: 36 years old Clinical indication: Pain; Chest pressure and left-sided; Additional info: Elevated d dimer, concern for pe, left sided pain TECHNIQUE: Imaging protocol: Computed tomographic angiography of the chest with contrast. 3D rendering (Not supervised by radiologist): MIP and/or 3D reconstructed images were created by the technologist. Radiation optimization: All CT scans at this facility use at least one of these dose optimization techniques: automated exposure control; mA and/or kV adjustment per patient size (includes targeted exams where dose is matched to clinical indication); or iterative reconstruction. Contrast material: ISOVUE 370; Contrast volume: 70 ml; Contrast route: INTRAVENOUS (IV); COMPARISON: [facility] CT angio chest 08/05/2018 5:05 PM FINDINGS: Pulmonary arteries: Normal. No pulmonary emboli. Aorta: Unremarkable. No aortic aneurysm. No aortic dissection. Lungs: There is pulmonary granulomatous scarring.No consolidation. Pleural spaces: Unremarkable. No pneumothorax. No pleural effusion. Heart: Unremarkable. No cardiomegaly. No pericardial effusion. Lymph nodes: Unremarkable. No enlarged lymph nodes. Gallbladder and bile ducts: There has been a cholecystectomy. Bones/joints: There are degenerative changes of the spine. Soft tissues: Unremarkable. IMPRESSION: No acute findings.
[2021-09-29 07:25] VITALS: BP 112/65; PULSE 59; RESP 18; TEMP 36.9; O2SAT 97
== END 2021-09-29 07:42 | disposition home or self-care (01) ==
PROVIDERS: Emergency Provider Student in an Organized Health Care Education/Training Program; PCP Nurse Practitioner Family
DX: R07.89 Other chest pain (principal); F41.9 Anxiety disorder, unspecified; E78.5 Hyperlipidemia, unspecified; Z88.0 Allergy status to penicillin; Z88.2 Allergy status to sulfonamides
CPT/HCPCS: 71046; 71275; 80053; 84484; 85025; 85378; 93005; 96375; 99283; Q9967

== ENCOUNTER 2021-10-10 14:01 | Emergency (ER) | payer OTHER, SELFPAY ==
[2021-10-10 14:02] VITALS: BP 115/50; PULSE 68; RESP 16; TEMP 36.7; O2SAT 98; BMI 38.0
--- NOTE | 2021-10-10 14:19 | HMH.EDGENADL ---
ED Disposition Clinical Impression: Lumbar disc disease Low back pain Qualifiers: Chronicity: chronic Back pain laterality: midline Sciatica presence: with sciatica Sciatica laterality: bilateral sciatica Qualified Code(s): M54.41 - Lumbago with sciatica, right side; M54.42 - Lumbago with sciatica, left side; G89.29 - Other chronic pain Disposition: Home, Self-Care Condition on Discharge: Good Instructions: DI for Back Pain With Sciatica Additional Instructions: Lortab as prescribed. Follow-up with your spine doctor within 1 to 2 days. Additional instructions for BACK PAIN: Return immediately if back pain becomes intolerable, or if fever, numbness or weakness of your legs, loss of control of your bowels or bladder. Additional instructions for CONTROLLED SUBSTANCES: You have been prescribed a medication that is a controlled substance. Controlled substances include pain medications known as opiates and sedative nerve medications known as benzodiazepines. Tramadol, fioricet, and gabapentin are also controlled substances. Some common opiates include: Codeine (such as Tylenol #3) Hydrocodone (Vicodin, Lortab, Lorcet, [place]) Oxycodone (Percocet, Percodan, Oxycodone, Oxy IR) Some common benzodiazepines include: Diazepam (Valium) Lorazepam (Ativan) Alprazolam (Xanax) Clonazepam (Klonopin) Oxazepam (Serax) All of these controlled substances are highly addictive and frequently abused. Misuse can and frequently does lead to addiction as well as overdose and . Medication should be stored in a locked cabinet or other secure storage unit. Do not store the medication in a motor vehicle. Short term supplies, 3 days or less, are prescribed because of the highly addictive nature of the medication. Any of the controlled substance medication NOT taken should be disposed of properly and NOT SAVED. The recommended method of disposing of unused medications is: Place the medicines in a sealable plastic bag. If the medicine is a solid, crush it or add water to dissolve it. Add something undesirable (cat litter, coffee grounds, etc.) Dispose of sealed bag in household trash Do not flush or pour unused medicines down a sink or drain. Controlled substances should not be shared, given away or sold. Because of the addictive nature and frequent abuse, these medications are sometimes stolen. These medications should be kept in a safe place where they cannot be stolen. Do not keep them in your car or purse. Lost or stolen prescriptions for controlled substances WILL NOT BE REFILLED in this emergency department, regardless of whether a police report was filed. Prescriptions: Hydrocodone/Acetaminophen [Lortab 7.5/325mg tablet] 1 tab PO Q6HP PRN #10 tablet PRN Reason: Moderate To Severe Pain Transmission Status: Sent to [facility] #[id number] Referrals: Kaylin Sherman APRN [Primary Care Provider] - - Critical Care Critical Care Time: No Attestation: On 10/10/21, the high probability of a clinically significant, sudden or life threatening deterioration of the following system(s) required my full and direct attention, intervention and personal management. The time I documented below is in addition to time spent performing reported procedures but includes the following listed in this critical care notation. Medical Decision Making - Alfredo Inquiry Pt receiving controlled substance: Yes Alfredo was queried for this patient: Yes Risks and benefits of using a controlled substance: were discussed with pt by me Vital Signs: 10/10/21 14:02 Temperature 98.1 F Temperature Source Oral Pulse Rate [Radial] 68 Respiratory Rate 16 Blood Pressure [Right Arm] 115/50 L Blood Pressure Mean [Right Arm] 71 Blood Pressure Position [Right Arm] Sitting 02 Sat by Pulse Oximetry 98 Oxygen Delivery Method Room Air General Adult HPI - General Chief complaint: PAIN Stated complaint: back/leg pain Time Seen
[2021-10-10 14:55] VITALS: BP 116/74; PULSE 78; RESP 16; TEMP 36.6; O2SAT 98
== END 2021-10-10 14:58 | disposition home or self-care (01) ==
PROVIDERS: Emergency Provider Emergency Medicine; PCP Nurse Practitioner Family
DX: M54.42 Lumbago with sciatica, left side (principal); M51.9 Unspecified thoracic, thoracolumbar and lumbosacral intervertebral disc disorder; G89.29 Other chronic pain; I10 Essential (primary) hypertension; E78.5 Hyperlipidemia, unspecified
CPT/HCPCS: 96372; 99281; J2405

== ENCOUNTER 2021-11-22 21:12 | Emergency (ER) | payer OTHER, SELFPAY ==
[2021-11-22 20:52] VITALS: BP 122/73; PULSE 86; RESP 16; TEMP 36.8; O2SAT 97; BMI 36.5
--- NOTE | 2021-11-22 20:54 | ECG_ITS ---
APPROVED REPORT Exam: Resting ECG HR:74 bpm ECG Measurements Heart Rate 74 AXES [place] 164 P 51 QRSd 87 QRS 74 QT 381 T 58 QTc 409 Conclusion SINUS RHYTHM NORMAL ECG UNCONFIRMED REPORT Electronically signed by : Lemuel Martinez MD 11/23/2021 19:19:49
--- NOTE | 2021-11-22 20:57 | XR_ITS ---
PROCEDURE INFORMATION: Exam: XR Chest Exam date and time: 11/22/2021 8:57 PM Age: 36 years old Clinical indication: Sternal or substernal pain; Additional info: Cp TECHNIQUE: Imaging protocol: XR of the chest. Views: 2 views. COMPARISON: CR XR CHEST 2V 09/29/2021 4:59 AM FINDINGS: Lungs: Unremarkable. No consolidation. Pleural spaces: Unremarkable. No pleural effusion. No pneumothorax. Heart/Mediastinum: Unremarkable. No cardiomegaly. Bones/joints: Unremarkable. IMPRESSION: No acute findings.
[2021-11-22 21:10] LABS: Basophils # 0.1 K/mm3 (0-0.2); Basophils % 0.8 % (0.1-2.0); Eosinophils # 0.3 K/mm3 (0.0-0.4); Eosinophils % 3.2 % (0.1-12.0); Hematocrit 44.4 % (37.0-47.0); Hemoglobin 14.7 g/dL (12.2-16.2); Lymphocytes # 3.5 K/mm3 (0.7-4.5); Lymphocytes % 33.7 % (10-50); Mean Corpuscular HGB Conc 33.1 g/dL (31.8-35.4); Mean Corpuscular Hemoglobin 29.1 pg (27.0-31.2); Mean Corpuscular Volume 87.9 fl (81-99); Mean Platelet Volume 7.3 fl (7.4-10.4); Monocytes # 0.4 K/mm3 (0.1-1.0); Monocytes % 3.6 % (1.7-9.3); Neutrophils # 6.1 K/mm3 (1.8-7.8); Neutrophils % 58.7 % (37.0-80.0); Platelet Count 413 K/mm3 (142-424); Red Blood Count 5.05 M/mm3 (4.20-5.40); Red Cell Distribution Width 13.1 % (11.5-17.5); White Blood Count 10.4 K/mm3 (4.8-10.8)
[2021-11-22 21:12] LABS: Chloride 100 mmol/L (98-107); Sodium 138 mmol/L (136-145)
[2021-11-22 21:13] LABS: Potassium 3.6 mmoL/L (3.5-5.1)
[2021-11-22 21:15] LABS: Alanine Aminotransferase 19 U/L (12-78); Albumin Level 4.7 g/dl (3.5-5.0); Albumin/Globulin Ratio 1.5 (1.1-1.8); Alkaline Phosphatase 69 U/L (38-126); Anion Gap 11.6 mEq/L (5-15); Aspartate Amino Transferase 39 U/L (14-36); Bilirubin,Total 0.5 mg/dl (0.2-1.3); Blood Urea Nitrogen 10 mg/dl (7-17); Carbon Dioxide 30 mmol/L (22.0-30.0); Creatinine Clearance Estimated 164 mL/min (50-200); Estimated Glomerular Filt Rate 80 ml/min (>60); GFR (African American) 97 ML/MIN (>60); Globulin 3.1 g/dL (1.3-3.2); Total Protein,Serum 7.8 g/dl (6.3-8.2)
[2021-11-22 21:16] LABS: Glucose 87 mg/dl (74-100)
[2021-11-22 21:21] LABS: C-Reactive Protein 6.9 mg/L (0-4)
[2021-11-22 21:26] LABS: HCG Qualitative, Serum Negative (Negative)
[2021-11-22 21:30] LABS: Troponin I < 0.01 ng/ml (0.00-0.034)
[2021-11-22 21:48] VITALS: BP 126/78; PULSE 80; RESP 21; O2SAT 99
[2021-11-22 21:51] LABS: Procalcitonin 0.051 ng/mL (0.0-2.0)
[2021-11-22 21:54] LABS: Erythrocyte Sedimentation Rate 23 mm/hr (0-20)
--- NOTE | 2021-11-22 22:04 | HMH.EDCP ---
ED Disposition Referrals: Provider,Referral, [Primary Care Provider] - Attestation: On 11/22/21, the high probability of a clinically significant, sudden or life threatening deterioration of the following system(s) required my full and direct attention, intervention and personal management. The time I documented below is in addition to time spent performing reported procedures but includes the following listed in this critical care notation. Medical Decision Making Vital Signs: 11/22/21 20:52 11/22/21 21:48 Temperature 98.2 F Temperature Source Oral Pulse Rate 80 Pulse Rate [Right] 86 Respiratory Rate 16 21 Blood Pressure 126/78 Blood Pressure [Right Arm] 122/73 Blood Pressure Mean [Right Arm] 89 02 Sat by Pulse Oximetry 97 99 Oxygen Delivery Method Room Air - Lab Data Lab Results 11/22/21 20:54: WBC 10.4, RBC 5.05, Hgb 14.7, Hct 44.4, MCV 87.9, MCH 29.1, MCHC 33.1, RDW 13.1, Plt Count 413, MPV 7.3 L, Neut % (Auto) 58.7, Lymph % (Auto) 33.7, Tift % (Auto) 3.6, Eos % (Auto) 3.2, Baso % (Auto) 0.8, Neut # (Auto) 6.1, Lymph # (Auto) 3.5, Tift # (Auto) 0.4, Eos # (Auto) 0.3, Baso # (Auto) 0.1, ESR Cancelled 11/22/21 20:54: Sodium 138, Potassium 3.6, Chloride 100, Carbon Dioxide 30, Anion Gap 11.6, BUN 10, Creatinine 0.80, Estimated Creat Clear 164, Estimated GFR 80, Est GFR ( Amer) 97, Glucose 87, Calcium 9.0, Total Bilirubin 0.5, AST 39 H, ALT 19, Alkaline Phosphatase 69, Troponin I < 0.01, C-Reactive Protein 6.9 H, Total Protein 7.8, Albumin 4.7, Globulin 3.1, Albumin/Globulin Ratio 1.5, Procalcitonin 0.051 11/22/21 20:54: Serum HCG, Qual Negative 11/22/21 21:30: ESR 23 H Result diagrams: 11/22/21 20:54 11/22/21 20:54 Orders (Tests/Meds): ED MEDICATIONS Discontinued Medications Generic Name Dose Route Start Last Admin Trade Name Garry PRN Reason Stop Dose Admin Sodium Chloride 1,000 mls @ 999 mls/hr 11/22/21 21:00 11/22/21 21:03 Sod Chlor 0.9% 1000ml Bag IV 11/22/21 22:00 999 mls/hr .Q1H1M ILIANA Administration Nitroglycerin 0.4 mg 11/22/21 20:58 11/22/21 21:03 Nitroglycerin 0.4mg Sl Tablet SL 11/22/21 20:59 0.4 mg ONCE ONE Administration ORDERS Category Date Time Status Troponin I Q3H Lab 11/22/21 23:58 Ordered Troponin I Q3H Lab 11/23/21 02:58 Ordered Chest Pain HPI - General Chief Complaint: Chest Pain Stated Complaint: chest pain Time Seen by Provider: 11/22/21 22:04 Mode of Arrival: EMS Source of Information: Patient, EMS, Medical Record Limitations: No Limitations Description of Symptoms (Recalled from ER Triage Doc. by RN): pt c/o chest pain that radiating down lt arm that started just proir to calling EMS - Related Data Home Medications Medication Instructions Recorded Confirmed ARIPiprazole [Abilify 10mg 5 mg PO DAILY 07/18/20 11/22/21 Tablet] Montelukast Sodium [Singulair 10mg 10 mg PO PM 07/18/20 11/22/21 tablet] Omeprazole [Omeprazole 40mg 40 mg PO DAILY 07/18/20 11/22/21 Capsule] Levocetirizine Dihydrochloride 5 mg PO DAILY 09/29/21 11/22/21 [Allergy Relief] Venlafaxine HCl [Venlafaxine HCl 75 mg PO POSTTR 09/29/21 11/22/21 ER] Verapamil HCl [Verapamil ER] 120 mg PO DAILY 09/29/21 11/22/21 Previous Rx's Medication Instructions Recorded spironolactone 25 mg tablet 25 mg PO DAILY #30 tab 11/19/21 Allergies Allergy/AdvReac Type Severity Reaction Status Date / Time aspirin [ASPIRIN] Allergy Unknown Hives Verified 09/11/21 09:46 iodine [IODINE] Allergy Unknown Hives Verified 09/11/21 09:46 labetalol [LABETALOL] Allergy Unknown Hives Verified 09/11/21 09:46 Penicillins [PENICILLINS] Allergy Unknown Verified 09/11/21 09:46 Sulfa (Sulfonamide Allergy Unknown Verified 09/11/21 09:46 Antibiotics) [SULFA (SULFONAMIDE ANTIBIOTICS)] triamcinolone [TRIAMCINOLONE] Allergy Unknown Verified 09/11/21 09:46 shellfish derived Allergy Hives Verified 09/11/21 09:46 [facility] Hi
[2021-11-22 23:08] VITALS: BP 123/85; PULSE 78; RESP 18; TEMP 36.8; O2SAT 98
== END 2021-11-22 23:10 | disposition left against medical advice (07) ==
PROVIDERS: Emergency Provider Emergency Medicine
DX: R07.9 Chest pain, unspecified (principal); F41.8 Other specified anxiety disorders; I10 Essential (primary) hypertension; E78.5 Hyperlipidemia, unspecified; R01.1 Cardiac murmur, unspecified; Z88.0 Allergy status to penicillin; Z88.2 Allergy status to sulfonamides; Z79.899 Other long term (current) drug therapy
CPT/HCPCS: 71046; 80053; 84145; 84484; 84703; 85025; 85651; 86140; 93005; 99283

== ENCOUNTER → 2021-12-14 06:53 | Outpatient (CLI) | payer OTHER, SELFPAY ==
--- NOTE | 2021-12-14 07:40 | US_ITS ---
FINAL REPORT CLINICAL HISTORY: ABD PAIN FINDINGS: RIGHT UPPER QUADRANT ULTRASOUND: Ultrasound images of right upper quadrant were obtained. Limited images of the pancreas are obscured by bowel gas. There is fatty infiltration of the liver. The patient is status post cholecystectomy. The common duct is normal measuring 3 mm. Limited images of right kidney are unremarkable. IMPRESSION: Fatty liver. Reviewed, Interpreted and Dictated by Charlie Wei III, MD Transcribed by Bekah Hussein Authenticated by Charlie Wei III, MD on 12/14/2021 09:16:02 AM [facility]
== END ==
PROVIDERS: PCP Nurse Practitioner Family; Visit Provider Family Medicine
DX: R10.9 Unspecified abdominal pain (principal)
CPT/HCPCS: 76705

== ENCOUNTER 2021-12-22 09:48 | Emergency (ER) | payer OTHER, SELFPAY ==
[2021-12-22 09:49] VITALS: BP 146/58; PULSE 74; RESP 16; TEMP 36.5; O2SAT 98; BMI 38.7
--- NOTE | 2021-12-22 09:54 | PC.NURSE ---
pt in room sitting on bed, hooked up to vital signs. nurse is bedside. call light given to patient.
[2021-12-22 10:01] VITALS: BP 136/73; PULSE 78; O2SAT 98
--- NOTE | 2021-12-22 10:05 | HMH.EDGENADL ---
ED Disposition Clinical Impression: Symptomatic irreversible pulpitis Disposition: Home, Self-Care Condition on Discharge: Good Additional Instructions: Please return to the ED with any new or worsening symptoms, I have sent medications to your pharmacy, if you develop difficulty eating, difficulty swallowing, or worsening infection with fevers please return to the ED, please follow-up with dentistry as soon as possible. Prescriptions: clindamycin HCL [Clindamycin HCl] 600 mg PO Q8 #30 cap Transmission Status: Pending to [facility] # Naproxen [Naproxen 500mg tab] 500 mg PO BID #10 tab Transmission Status: Pending to [facility] # Oxycodone HCl [Oxycodone 5mg tab (IR)] 5 mg PO Q8 #4 tablet Transmission Status: Sent to [facility] # Referrals: Kaylin Sherman APRN [Primary Care Provider] - - Critical Care Critical Care Time: No Attestation: On 12/22/21, the high probability of a clinically significant, sudden or life threatening deterioration of the following system(s) required my full and direct attention, intervention and personal management. The time I documented below is in addition to time spent performing reported procedures but includes the following listed in this critical care notation. Medical Decision Making - Medical Records Medical records reviewed: Yes: I reviewed the patient's medical records. - Alfredo Inquiry Pt receiving controlled substance: No Vital Signs: 12/22/21 09:49 Temperature 97.7 F Temperature Source Oral Pulse Rate [Radial] 74 Respiratory Rate 16 Blood Pressure [Right Arm] 146/58 H Blood Pressure Mean [Right Arm] 87 Blood Pressure Position [Right Arm] Sitting 02 Sat by Pulse Oximetry 98 Oxygen Delivery Method Room Air Medical Decision Narrative: Patient is a 36-year-old female presents the ED today for further evaluation of left cheek pain, patient is well-appearing nurse evaluation, afebrile no acute distress, vital signs within normal limits and stable. Patient with left upper premolar odontogenic infection which may be causing some internal cheek cellulitis, no abscess formation palpated, certainly has irreversible pulpitis, and the premolar on that side has multiple dental caries. Patient able to tolerate p.o., able to tolerate her own secretions, with no evidence of Clement's angina at this time. Patient has a penicillin allergy will treat with 600 mg of oral clindamycin in the outpatient setting, naproxen, will give several oxycodone tabs for breakthrough pain patient verbalized understanding with the usage of these medications and the dangers of these medications, will follow up with her dentist, if she is unable to see dentist on Friday I have given her additional counseling about other dentist office she can visit down in [place]. General Adult HPI - General Chief complaint: PAIN Stated complaint: facial swelling/pain Time Seen by Provider: 12/22/21 09:55 Mode of Arrival: Ambulatory Limitations: No Limitations Description of Symptoms (Recalled from ER Triage Doc. by RN): TO ED PER [facility] CAR WITH C/O LT SIDE FACIAL SWELLING STARTING THIS AM. PT ALSO C/O LT UPPER TOOTH PAIN X 2 WEEKS HAS A DENTAL APPT NEXT WEEK. PT C/O NAUSEA, VOMITING, SUBJECTIVE FEVER. CPTA IBUPROFEN AT 5AM - History of Present Illness HPI narrative: Patient is a 36-year-old female with a history of fatty liver disease who presents the ED today with left cheek swelling secondary to a presumed odontogenic infection in the left maxillary premolars. States she has been having pain in these teeth for the last couple of days, states that it got worse this morning when she woke up and noticed swelling of her left cheek. Patient states that she was planning on seeing a dentist late next week, but states that she is going to try to see them earlier because of this pain. States he has been eating and drinking okay, no shortness of breath, no chest pain, no fever
[2021-12-22 10:35] VITALS: BP 128/74; PULSE 88; RESP 16; TEMP 36.6; O2SAT 98
== END 2021-12-22 10:36 | disposition home or self-care (01) ==
PROVIDERS: Emergency Provider Student in an Organized Health Care Education/Training Program; PCP Nurse Practitioner Family
DX: K04.02 Irreversible pulpitis (principal); K02.9 Dental caries, unspecified; F41.9 Anxiety disorder, unspecified; I10 Essential (primary) hypertension; E78.5 Hyperlipidemia, unspecified; Z88.0 Allergy status to penicillin; Z88.2 Allergy status to sulfonamides; Z79.899 Other long term (current) drug therapy
CPT/HCPCS: 99283

== ENCOUNTER → 2022-03-20 12:12 | Outpatient (CLI) | payer OTHER, SELFPAY ==
--- NOTE | 2022-03-20 12:20 | XR_ITS ---
FINAL REPORT CLINICAL HISTORY: shoulder pain FINDINGS: RIGHT SHOULDER: 3 views of the right shoulder were obtained. There is no acute fracture or dislocation. There are degenerative changes of the acromioclavicular joint. There is no soft tissue abnormality. IMPRESSION: Degenerative is with no acute fracture. Reviewed, Interpreted and Dictated by Charlie Wei III, MD Transcribed by Candice Cook Authenticated and [facility]
== END ==
PROVIDERS: PCP Nurse Practitioner Family; Visit Provider Orthopaedic Surgery
DX: M25.511 Pain in right shoulder (principal); S43.401A Unspecified sprain of right shoulder joint, initial encounter
CPT/HCPCS: 73030

== ENCOUNTER 2022-03-20 14:32 | Outpatient (RCR) | payer OTHER, SELFPAY | END 2022-03-20 15:30 | disposition home or self-care (01) | LOC: OT 14:32 | PROVIDERS: Visit Provider Orthopaedic Surgery | DX: G56.01 Carpal tunnel syndrome, right upper limb (principal) ==

== ENCOUNTER → 2022-05-03 08:51 | Outpatient (CLI) | payer OTHER, SELFPAY ==
--- NOTE | 2022-05-03 08:54 | CT_ITS ---
FINAL REPORT TECHNIQUE: Axial CT images of the abdomen were obtained with IV contrast only. Coronal reformatted images were also obtained. This study was performed with techniques to keep radiation doses as low as reasonably achievable (ALARA). Individualized dose reduction techniques using automated exposure control or adjustment of mA and/or kV according to the patient''s size were employed. CLINICAL HISTORY: RUQ ABDOMINAL PAIN; NAUSEA AND VOMITING IN ADULT FINDINGS: There are multiple small nodules in the lung bases. Many of these nodules are calcified, consistent with granulomas. Several are not calcified but also favored to represent granulomas. The liver has an unremarkable appearance, without evidence of mass. The patient is status post cholecystectomy. There is no evidence of biliary ductal dilatation. The pancreas appears normal. The spleen size is within normal limits. There are less than 1 cm probable cysts in both kidneys. There is no evidence of adenopathy. No abnormal fluid collection is seen. No localized inflammatory processes identified. The appendix is normal. IMPRESSION: No acute intra-abdominal abnormality. Bilateral subcentimeter renal cysts. Reviewed, Interpreted and Dictated by Charlie Wei III, MD Transcribed by Mahi Heart Authenticated and [facility][1]
== END ==
PROVIDERS: PCP Nurse Practitioner Family; Visit Provider Nurse Practitioner Family
DX: R10.11 Right upper quadrant pain (principal); R11.2 Nausea with vomiting, unspecified
CPT/HCPCS: 74160; Q9967

== ENCOUNTER → 2022-07-23 09:09 | Outpatient (CLI) | payer OTHER, SELFPAY ==
--- NOTE | 2022-07-23 09:12 | MR_ITS ---
FINAL REPORT CLINICAL HISTORY: LOW BACK PAIN bilateral lbp bilateral leg pain , numbness, and tingling x 6 months no injury /trauma FINDINGS: MRI LUMBAR SPINE W/O CONTRAST Multiplanar MR imaging of the lumbar spine was performed without contrast. On the sagittal T2-weighted images, disc degeneration is seen at L5-S1 with significant endplate change. Several meningiomas are noted.. The vertebral alignment is normal. There is no evidence of fracture. The conus has an unremarkable appearance. T12-L1: No significant central canal stenosis or neural foraminal narrowing. L1-2: No significant central canal stenosis or neural foraminal narrowing. L2-3: An annular disc bulge is present. No significant central canal stenosis or neural foraminal narrowing. L3-4: An annular disc bulge is present. No significant central canal stenosis or neural foraminal narrowing. L4-5: An annular disc bulge is present. There is mild bilateral neural foraminal narrowing. No significant central canal stenosis. L5-S1: There is an annular disc bulge with facet arthropathy and vertebral osteophytes. There is a small central disc protrusion which contacts the left S1 nerve root. There is moderate bilateral neural foraminal narrowing IMPRESSION: Disc degeneration at L5-S1 with significant endplate change and a small central disc protrusion which contacts the left S1 nerve root and moderate bilateral neural foraminal narrowing. Reviewed, Interpreted and Dictated by Charlie Wei III, MD Transcribed by Hawa Hart Authenticated and [facility]
== END ==
PROVIDERS: PCP Nurse Practitioner Family; Visit Provider Physician Assistant Medical
DX: M54.59 Other low back pain (principal)
CPT/HCPCS: 72148; 76376

== ENCOUNTER → 2022-08-12 10:31 | Outpatient (POV) | payer OTHER, SELFPAY ==
[2022-08-12 11:16] VITALS: BP 118/101; PULSE 72; RESP 20; O2SAT 97; BMI 31.1
--- NOTE | 2022-08-12 12:44 | EXP.PAIN.OV ---
HPI Data of Consult Patient: new to practice Consult date: 08/12/22 Requesting Physician: Christi Monroy APRN Primary Care Provider: Kaylin Sherman APRN Consult Narrative Reason for consult: Low back pain, bilateral leg pain History of present illness: Ms. Rain is a 37 year old female who presents today as a new patient. She is a referral from Ceci Vizcarra's office. Today she rates her pain a 9 out of 10. She states the pain is all in her low back that radiates into her bilateral lower extremities. Patient denies any new trauma or injury. Patient states this pain has been going on for years and progressively worsened. 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 She describes this as a constant aching, throbbing sensation that is worse with increased activity and frequently causes nausea and vomiting. Patient states she has had multiple injections in the past by the medical center orthopedics however these did not provide significant improvement. Patient states she does see Dr. Kamron tamez and that they have done anything from [facility]un [facility], lumbar epidural steroid injections. Patient has been to physical therapy approximately 3 months ago however this worsened her symptoms. Patient denies any kidney issues however the patient does state that she does see a metal handler. Patient is currently taking tizanidine, meloxicam and gabapentin from outside providers. Patient denies any side effects from these medications. She states these medications do help take the edge off her pain. Patient did state that she does not notice as much improvement with her tizanidine. Patient also states she has used lidocaine patches in the past that provided some improvement however she no longer has any prescriptions for this medication. Patient states she has had some improvement in her back pain following losing approximately 170 pounds. Patient states her weight today is around 205 and that she would like to get down to 175. Patient has tried and failed conservative therapy such as oral medications, injective therapy, topicals, heat and ice, physical therapy and at home exercising and stretching for longer than 6 weeks. Her Alfredo is [phone]. Its been reviewed and appropriate. CC: Christi Monroy APRN [facility] Medical History Abnormal cardiovascular stress test Atypical angina Bradycardia Dizziness Social History (Updated 08/12/22 @ 11:26 by ERASTO Mayen Smoking Status: Never smoker second hand exposure: No alcohol intake: never substance use type: denies use current occupational status: other Travel in the last 8 weeks: None household members: spouse and children housing: house current occupational exposures/hazards: No caffeine: Yes Review of Systems Review of Systems Review of systems:: pertinent systems reviewed and negative unless documented below Review of systems (narrative): Review of Systems: General: No recent weight changes, no fever, no sleep disturbances Respiratory: No cough, no shortness of air, no recurring pulmonary infections Cardiovascular/peripheral vascular: No chest pain, no palpitations, no edema, no shortness of breath Gastrointestinal: No new onset incontinence, normal bowel movements reported Genitourinary: No new onset incontinence Musculoskeletal: Low back pain, bilateral leg pain Psychiatric: [Normal mood/affect] Neurological: [Denies weakness in extremities], [denies balance issues] Meds Home Medications and Allergies Home Medications Medication Instructions Recorded Confirmed Type montelukast 10 mg tablet 10 mg PO PM Allergy symptoms 07/18/20 08/12/22 History omeprazole 40 mg capsule,delayed 40 mg PO DAILY GERD 07/18/20 08/12/22 History release venlafaxine 75 mg tablet,extended 75 mg PO POSTTR Depression 09/29/21 08/12/22 History release 24 hr spironolactone 25 mg tablet 25 mg PO DAILY Fluid #30
== END | disposition home or self-care (01) ==
PROVIDERS: PCP Nurse Practitioner Family; Visit Provider Nurse Practitioner Family
DX: M51.9 Unspecified thoracic, thoracolumbar and lumbosacral intervertebral disc disorder (principal); M79.604 Pain in right leg; M79.605 Pain in left leg; G89.29 Other chronic pain; M54.41 Lumbago with sciatica, right side; M54.42 Lumbago with sciatica, left side
CPT/HCPCS: 99202; G0463

== ENCOUNTER → 2022-08-14 09:09 | Outpatient (CLI) | payer OTHER, SELFPAY ==
[2022-08-14 10:00] LABS: Anion Gap 18.7 mEq/L (5-15); Blood Urea Nitrogen 9 mg/dl (7-17); Calcium 9.7 mg/dl (8.4-10.2); Carbon Dioxide 25 mmol/L (22.0-30.0); Chloride 101 mmol/L (98-107); Estimated Glomerular Filt Rate 80 ml/min (>60); GFR (African American) 97 ML/MIN (>60); Glucose 93 mg/dl (74-100); Potassium 3.7 mmoL/L (3.5-5.1); Sodium 141 mmol/L (136-145)
== END ==
PROVIDERS: PCP Nurse Practitioner Family; Visit Provider Nurse Practitioner
DX: R07.9 Chest pain, unspecified (principal); I10 Essential (primary) hypertension; E78.2 Mixed hyperlipidemia
CPT/HCPCS: 36415; 80048

== ENCOUNTER 2022-08-27 09:05 | Day surgery (SDC) | payer OTHER, SELFPAY ==
[2022-08-27 09:26] VITALS: BP 145/61; PULSE 87; RESP 18; TEMP 36.3; O2SAT 100; BMI 31.1
[2022-08-27 09:53] VITALS: BP 152/91; PULSE 88; RESP 20; O2SAT 97
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
[2022-08-27 10:12] VITALS: BP 137/90; PULSE 80; RESP 20
== END 2022-08-27 10:13 | disposition home or self-care (01) ==
PROVIDERS: PCP Nurse Practitioner Family; Visit Provider Nurse Anesthetist, Certified Registered
DX: M51.16 Intervertebral disc disorders with radiculopathy, lumbar region (principal)
CPT/HCPCS: 62323; J1040

== ENCOUNTER 2022-10-01 13:58 | Emergency (ER) | payer OTHER, SELFPAY ==
[2022-10-01 13:58] VITALS: BP 94/65; PULSE 66; RESP 18; TEMP 36.6; O2SAT 100; BMI 30.1
[2022-10-01 14:12] VITALS: BMI 30.1
--- NOTE | 2022-10-01 14:27 | ECG_ITS ---
APPROVED REPORT Exam: Resting ECG HR:68 bpm ECG Measurements Heart Rate 68 AXES [place] 158 P 59 QRSd 89 QRS 80 QT 421 T 63 QTc 438 Conclusion SINUS RHYTHM WITH SINUS ARRHYTHMIA NORMAL ECG UNCONFIRMED REPORT Electronically signed by : Lemuel Martinez MD 10/03/2022 08:14:27
[2022-10-01 14:47] LABS: Microscopic, Urine URINE MICROSCOPIC (MICROSCOPIC)
[2022-10-01 14:50] LABS: Basophils # 0.1 K/mm3 (0-0.2); Eosinophils # 0.3 K/mm3 (0.0-0.4); Eosinophils % 2.4 % (0.1-12.0); Hematocrit 45.8 % (37.0-47.0); Hemoglobin 15.4 g/dL (12.2-16.2); Lymphocytes # 3.4 K/mm3 (0.7-4.5); Lymphocytes % 32.2 % (10-50); Mean Corpuscular HGB Conc 33.7 g/dL (31.8-35.4); Mean Corpuscular Hemoglobin 29.3 pg (27.0-31.2); Mean Corpuscular Volume 86.9 fl (81-99); Mean Platelet Volume 7.9 fl (7.4-10.4); Monocytes # 0.4 K/mm3 (0.1-1.0); Monocytes % 3.4 % (1.7-9.3); Neutrophils # 6.5 K/mm3 (1.8-7.8); Neutrophils % 61.2 % (37.0-80.0); Platelet Count 428 K/mm3 (142-424); Red Blood Count 5.28 M/mm3 (4.20-5.40); Red Cell Distribution Width 13.9 % (11.5-17.5); White Blood Count 10.7 K/mm3 (4.8-10.8)
[2022-10-01 14:53] LABS: Appearance,Urine CLEAR (Clear); Bilirubin,Urine Negative (Negative); Blood, Urine Negative (Negative); Color,Urine STRAW (Yellow); Glucose,Urine (UA) Negative (Negative); Ketones,Urine Negative (Negative); Leukocyte Esterase,Urine Negative (Negative); Nitrate,Urine Negative (Negative); PH,Urine 6.5 (5.0-8.5); Protein,Urine Negative (Negative); Specific Gravity, Urine <= 1.005 (1.005-1.030); Urobilinogen,Urine 0.2 EU/dl (0.2)
[2022-10-01 14:54] LABS: Urine Pregnancy, HCG Qual. Negative (Negative)
[2022-10-01 15:02] VITALS: BP 114/67; PULSE 76; RESP 18; O2SAT 100
--- NOTE | 2022-10-01 15:03 | PC.NURSE ---
OSITO ODOM at
[2022-10-01 15:04] LABS: Alanine Aminotransferase 25 U/L (12-78); Albumin Level 4.8 g/dl (3.5-5.0); Albumin/Globulin Ratio 1.5 (1.1-1.8); Alkaline Phosphatase 77 U/L (38-126); Anion Gap 13.5 mEq/L (5-15); Aspartate Amino Transferase 44 U/L (14-36); Bilirubin,Total 0.5 mg/dl (0.2-1.3); Blood Urea Nitrogen 9 mg/dl (7-17); Carbon Dioxide 21 mmol/L (22.0-30.0); Chloride 108 mmol/L (98-107); Creatinine Clearance Estimated 119 mL/min (50-200); Estimated Glomerular Filt Rate 70 ml/min (>60); Ethyl Alcohol 197 mg/dl (0-10); GFR (African American) 84 ML/MIN (>60); Globulin 3.2 g/dL (1.3-3.2); Glucose 86 mg/dl (74-100); Potassium 3.5 mmoL/L (3.5-5.1); Sodium 139 mmol/L (136-145)
[2022-10-01 15:06] LABS: Barbiturates Screen,Urine Negative ng/ml (<200)
[2022-10-01 15:07] LABS: Acetaminophen < 10 ug/ml (10-30); Amphetamine/Metha Screen,Urine Negative ng/ml (<1000); Benzodiazepines Screen,Urine Negative ng/ml (<200); Salicylate < 1.0 mg/dL (2.0-20.0)
[2022-10-01 15:08] LABS: Cannabinoid Screen,Urine Positive ng/ml (<50); Cocaine Screen,Urine Negative ng/ml (<300)
[2022-10-01 15:09] LABS: Methadone Screen,Urine Negative ng/ml (<300)
[2022-10-01 15:10] LABS: Opiate Screen,Urine Negative ng/ml (<300); Phencyclidine Screen,Urine Negative ng/ml (<25)
--- NOTE | 2022-10-01 15:20 | HMH.EDGENADL ---
Discharge Plan Disposition Patient Disposition: Home, Self-Care Condition: Good Chief Complaint: Alcohol Prescriptions Prescriptions: No Action tizanidine 4 mg tablet 1 mg PO TID PRN (Reason: MUSCLES) Label Comments: TAKE 1 TABLET BY MOUTH THREE TIMES DAILY NEEDED FOR MUSCLE SPASMS meloxicam 15 mg tablet 15 mg PO DAILY Label Comments: TAKE 1 TABLET BY MOUTH EVERY DAY lidocaine [Lidoderm] 5 % adhesive patch,medicated 1 patch transdermal Q24H spironolactone [Aldactone] 50 mg tablet 50 mg PO DAILY Qty: 30 5RF verapamil 240 mg capsule,ext rel. pellets 24 hr 240 mg PO DAILY Qty: 30 2RF omeprazole 40 MG capsule,delayed release(DR/EC) 40 mg PO DAILY montelukast 10 MG tablet 10 mg PO PM venlafaxine 75 MG tablet extended release 24hr 75 mg PO POSTTR methocarbamol 500 mg tablet 500 mg PO TID lidocaine 5 % adhesive patch,medicated 3 patch topical DAILY Referrals Follow up/Referrals: Riana Jacobs APRN [Nurse Practitioner] - See instructions Activity Restrictions/Add. Instructions Additional Instructions/Restrictions: Follow-up with Riana Jacobs, behavioral medicine, call for appointment. Follow-up with [facility] for substance abuse. Follow-up with your primary care provider, call for appointment. Return emergency department if worsening or any thoughts of self-harm. Clinical Impressions Clinical Impression: Alcohol abuse, Alcohol-induced mood disorder Instructions Patient Instructions: DI for Alcohol Use Disorder, DI for Mood Disorder Discharge ED Provider: Dwain Fields General Adult HPI General Chief complaint: Alcohol Stated complaint: intoxicated Time Seen by Provider: 10/01/22 15:00 Mode of Arrival: EMS Source of Information: Patient Limitations: No Limitations Description of Symptoms (Recalled from ER Triage Doc. by RN): pt reports is wanting help with anxiety and depression. Pt reports she is missing her mother who approx 1 year ago. Pt reports she began drinking a couple of hrs ago, states she had been clean from alcohol for 6 months prior to today. Pt reports If I didn't come here today to get help I wanted to jump off the bridge . Pt reports her is who called the ambulance for her today. History of Present Illness HPI narrative: The patient is brought in by ambulance. She states I am having a mental breakdown . States that she has a history of alcoholism, states that she had been clean for about 6 months but started drinking again around . Admits to drinking 5 shots today. States that she smokes marijuana, denies any other drug use. States that earlier today she felt suicidal, wanted to jump off of a bridge. He states that she is not at this moment feeling suicidal but states that she just wants to go away. Denies any recent illness. States she is currently in therapy at [facility]. Denies any previous psychiatric admissions or suicide attempts. Related Data Home Medications Medication Instructions Recorded Confirmed montelukast 10 mg tablet 10 mg PO PM Allergy symptoms 07/18/20 09/03/22 omeprazole 40 mg capsule,delayed 40 mg PO DAILY GERD 07/18/20 09/03/22 release venlafaxine 75 mg tablet,extended 75 mg PO POSTTR Depression 09/29/21 09/03/22 release 24 hr lidocaine 5 % topical patch 1 patch transdermal Q24H Pain 08/06/22 09/03/22 (Lidoderm) meloxicam 15 mg tablet 15 mg PO DAILY Pain 08/06/22 09/03/22 tizanidine 4 mg tablet 1 mg PO TID PRN MUSCLES 08/06/22 09/03/22 lidocaine 5 % topical patch 3 patch topical DAILY Pain 08/27/22 09/03/22 methocarbamol 500 mg tablet 500 mg PO TID . 08/27/22 09/03/22 Previous Rx's Medication Instructions Recorded spironolactone 50 mg tablet 50 mg PO DAILY #30 tabs 09/03/22 (Aldactone) verapamil 240 mg 24 hr 240 mg PO DAILY BLOOD PRESSURE #30 09/25/22 capsule,extended release caps Allergies Aller
--- NOTE | 2022-10-01 15:22 | PC.NURSE ---
covid swab sent to lab
[2022-10-01 15:27] LABS: Coronavirus 19, PCR Not Detected (NotDetected); Influenza A, PCR Not Detected (NotDetected); Influenza B, PCR Not Detected (NotDetected)
--- NOTE | 2022-10-01 15:39 | XR_ITS ---
FINAL REPORT CLINICAL HISTORY: medical clearance COMPARISON: 10/2021 FINDINGS: The heart size is normal. The mediastinum is within normal limits. There is no acute cardiopulmonary process. There is no pleural effusion. There is no pneumothorax. The bony thorax is intact. IMPRESSION: No acute cardiopulmonary process. Reviewed, Interpreted and Dictated by Kaushal Stevens MD Transcribed by Severiano Montalvo Authenticated and [facility]
--- NOTE | 2022-10-01 16:00 | PC.NURSE ---
checked on pt at this time, pt moved to chan bed in view of nurses station. Pt denies SI and HI at this time. Pt states she is feeling better.
[2022-10-01 16:01] VITALS: BP 119/66; PULSE 81; RESP 16; O2SAT 92
--- NOTE | 2022-10-01 17:05 | PC.NURSE ---
pt sleeping at this time
--- NOTE | 2022-10-01 18:11 | PC.NURSE ---
lab drawing repeat blood work at this time
[2022-10-01 18:33] VITALS: BP 102/43; PULSE 90; RESP 19; O2SAT 96
[2022-10-01 18:49] VITALS: BP 114/75; PULSE 69; O2SAT 100
--- NOTE | 2022-10-01 18:54 | PC.NURSE ---
1820- pt sitting up in recliner at this time, pt reports she has a headache but other cash is feeling better. Pt states she does have thoughts of harming herself. Pt does request states she wants help with her anxiety/depression but denies SI and HI
[2022-10-01 18:55] LABS: Ethyl Alcohol 130 mg/dl (0-10)
[2022-10-01 19:13] VITALS: BP 114/75; PULSE 69; RESP 18; TEMP 36.6; O2SAT 100
== END 2022-10-01 19:16 | disposition home or self-care (01) ==
PROVIDERS: Emergency Provider Emergency Medicine
DX: F10.14 Alcohol abuse with alcohol-induced mood disorder (principal); F41.9 Anxiety disorder, unspecified; F12.90 Cannabis use, unspecified, uncomplicated; F17.210 Nicotine dependence, cigarettes, uncomplicated; Z86.79 Personal history of other diseases of the circulatory system; Z20.822 Contact with and (suspected) exposure to COVID-19
CPT/HCPCS: 36415; 71045; 80053; 80305; 80329; 81001; 81025; 85025; 93005; 96360; 99285; C9803; U0003; U0005

== ENCOUNTER → 2022-10-03 13:44 | Outpatient (POV) | payer OTHER, SELFPAY ==
[2022-10-03 14:14] VITALS: BP 131/105; PULSE 75; RESP 20; O2SAT 97; BMI 40.4
--- NOTE | 2022-10-03 14:53 | EXP.PAIN.SOA ---
[facility] [place] Pain Management SOAP Note Subjective:: Patient is a pleasant 37-year-old female who presents today for follow-up of lumbar epidural steroid injection at L4-L5 on 08/27/2022. We are currently treating the patient for degenerative disc disease of lumbar spine with lumbar radiculopathy symptoms, bilateral leg pain, low back pain. Today the patient states that this injection did not provide any relief however made her pain symptoms worse. Patient describes this as a aching, throbbing sensation that is worse with increased activity. Patient does state that her symptoms have gotten so strong that she is having nausea and vomiting with them. Patient has had multiple injections in the past with minimal improvement. She is rating her pain a 10 out of 10. Patient denies any new trauma or injury from her previous visit. Patient denies any change location or type of pain she experiences. Patient is going to see Dr. Lundy at [facility] for possible surgical intervention on the . Patient has tried tizanidine and Flexeril in the past with no additional improvement of her symptoms. Patient is also tried lidocaine patches of 5% with no relief. At our last visit we did discuss about a spinal cord stimulator trial and handouts were given. Patient states she is open to this option. Patient has been to physical therapy approximately 4 months ago however this worsened her symptoms. Patient Alfredo is [phone]. Its been reviewed and appropriate. Review of Systems: General: No recent weight changes, no fever, no sleep disturbances Respiratory: No cough, no shortness of air, no recurring pulmonary infections Cardiovascular/peripheral vascular: No chest pain, no palpitations, no edema, no shortness of breath Gastrointestinal: No new onset incontinence, normal bowel movements reported Genitourinary: No new onset incontinence Musculoskeletal: Low back pain, bilateral leg pain Psychiatric: [Normal mood/affect] Neurological: [Denies weakness in extremities], [denies balance issues] Objective:: Physical Exam: General: Alert and oriented x3, no acute distress, pleasant and cooperative Lungs: Respirations even and unlabored, symmetrical chest expansion Eyes: PERRL Musculoskeletal: Flexion and extension of lumbar [spine] somewhat guarded secondary to pain, [antalgic gait noted] Neurological: Speech clear, no gross sensory deficit ORT score updated with mild risk. Assessment:: Degenerative disc disease of lumbar spine with lumbar radiculopathy symptoms, low back pain, bilateral leg pain Plan:: Patient continues to experience significant pain in her low back with radiating symptoms into her lower extremities. Patient did have limited range of motion of her lumbar spine during today's visit. Patient has tried and failed conservative therapy such as oral medications, topicals, heat and ice, physical therapy, injection therapy, at home exercising and stretching for longer than 6 weeks. Patient's MRI did show degenerative disc disease with significant endplate changes L5-S1 and a small disc protrusion which contacts the left S1 nerve root and moderate bilateral neuroforaminal narrowing. I have discussed with the patient that she may benefit from a spinal cord stimulator trial. Risk and benefits were discussed with the patient. She would like to proceed forward with this plan of care. I will order the patient a compounding cream at today's visit. I will change the patient's methocarbamol 500 mg 3 times daily to methocarbamol 750 mg 3 times daily and provide a 14-day supply of this medication. We will proceed forward with a psychiatric evaluation with the plan to do a spinal cord stimulator trial in the future. Patient has been instructed to contact the clinic with any concerns before the next appointment. Dr. Guerrero has reviewed this note and agrees with this plan of care. This note was dictated using voice recognition software and make contain errors or omissions. P
== END | disposition home or self-care (01) ==
PROVIDERS: PCP Nurse Practitioner Family; Visit Provider Nurse Practitioner Family
DX: M51.16 Intervertebral disc disorders with radiculopathy, lumbar region (principal); M79.604 Pain in right leg; M79.605 Pain in left leg
CPT/HCPCS: 99212; G0463

== ENCOUNTER → 2022-11-01 10:47 | Outpatient (POV) | payer OTHER, SELFPAY ==
[2022-11-01 11:01] VITALS: BP 152/97; PULSE 89; RESP 18; O2SAT 97; BMI 40.4
--- NOTE | 2022-11-01 11:35 | A.OFFVIS_ITS ---
[facility] Pain Management SOAP Note Subjective:: This patient's pleasant 37-year-old female comes our clinic today for follow-up visit regarding medication refills in the form of tizanidine 4 mg 1 p.o. 3 times daily. Meloxicam 15 mg 1 p.o. daily. Robaxin-750 milligrams 1 p.o. 3 times daily. It was discussed with the patient at her last visit in our clinic regarding potential for lumbar spinal cord stimulator trial. However, according to the patient her spine surgeon does not want her to have a stimulator. According to the patient, the spine surgeon is planning a lumbar fusion for her that would both require anterior and posterior approach. Patient describes her low back pain as constant, dull, aching, sharp and stabbing. Bilateral hip and leg radicular symptoms. She rates her pain 10/10 today. Patient reports none of the medication she takes is helping her. She does receive gabapentin 60 mg 1 p.o. 3 times daily from her spine surgeon. Her Alfredo #[id number] has been reviewed and appropriate. I am reluctant to refill her medications based on the fact she tells me none of the medications we are giving her give her any relief. I will pass this information on to the nurses in the clinic. Objective:: Patient is awake alert Gary x3. In somewhat distress regarding her low back pain. Motor strength upper and lower extremities normal. There is no gross sensory deficit. Gait is normal. Assessment:: Degenerative disc disease lumbar spine multilevels. Lumbar radiculopathy Plan:: Advised the patient to continue communicating with the spine surgeon regarding surgical intervention. Patient will continue with gabapentin 600 mg 1 p.o. 3 times daily. Patient had a lumbar epidural steroid injection 08/27/2022 which she reports her low back pain was worse for 4 weeks following the injection. I do not recommend any further injective therapy. Not much we can do for the patient therapeutically speaking. Interventionally we have not had much success. Conservatively medications we have been given the patient tizanidine, meloxicam, Robaxin have not brought her any relief. [facility] Disclaimer: The information contained in this section may have been updated after the patient was seen, as this information can be updated by other users. Medical History Abnormal cardiovascular stress test Atypical angina Bradycardia Dizziness Family History Other No significant family history Social History Smoking Status: Current every day smoker second hand exposure: No alcohol intake: never substance use type: denies use current occupational status: other Travel in the last 8 weeks: None household members: spouse and children housing: house current occupational exposures/hazards: No caffeine: Yes
== END ==
PROVIDERS: PCP Nurse Practitioner Family; Visit Provider Nurse Anesthetist, Certified Registered
DX: M51.16 Intervertebral disc disorders with radiculopathy, lumbar region (principal)
CPT/HCPCS: 99212; G0463

== ENCOUNTER 2022-11-12 08:48 | Emergency (ER) | payer OTHER, SELFPAY ==
[2022-11-12] VITALS (8 sets, daily range): BP systolic 106–127; BP diastolic 50–70; PULSE 42–98; RESP 16–18; TEMP 36.6–37; O2SAT 96–99; BMI 30.1
--- NOTE | 2022-11-12 08:56 | PC.NURSE ---
pt to restroom via WC without complications. patient was able to provide a UA and it was sent to lab
[2022-11-12 09:06] LABS: Appearance,Urine CLEAR (Clear); Blood, Urine Negative (Negative); Color,Urine YELLOW (Yellow); Glucose,Urine (UA) Negative (Negative); Ketones,Urine 1+ (Negative); Leukocyte Esterase,Urine Negative (Negative); Microscopic, Urine URINE MICROSCOPIC (MICROSCOPIC); Nitrate,Urine Negative (Negative); PH,Urine 7.5 (5.0-8.5); Protein,Urine Negative (Negative); Specific Gravity, Urine 1.015 (1.005-1.030); Urobilinogen,Urine >=8.0 EU/dl (0.2)
[2022-11-12 09:33] LABS: Bilirubin,Urine Negative (Negative)
--- NOTE | 2022-11-12 09:33 | PC.NURSE ---
Rounded on patient, pt lying on ED stretcher with call light within reach. She reports her back is really bothering her, ER MD is aware.
--- NOTE | 2022-11-12 09:40 | PC.NURSE ---
CHECKED ON PT SHE STATES SHE HURTING AND PAIN LEVEL AT 10, NOTIFIED RN NURSE YAZMIN AND ER MD AWARE WELL
[2022-11-12 09:43] LABS: Bacteria,Urine Trace /lpf; WBC,Urine Occasional #/hpf (0-3)
--- NOTE | 2022-11-12 10:06 | HMH.EDGENADL ---
Discharge Plan Disposition Patient Disposition: Home, Self-Care Condition: Good Prescriptions Prescriptions: New oxycodone-acetaminophen [Percocet] 5-325 mg tablet 1 tab PO Q8H PRN (Reason: pain) Qty: 7 0RF No Action tizanidine 4 mg tablet 1 mg PO TID PRN (Reason: MUSCLES) Label Comments: TAKE 1 TABLET BY MOUTH THREE TIMES DAILY NEEDED FOR MUSCLE SPASMS meloxicam 15 mg tablet 15 mg PO DAILY Label Comments: TAKE 1 TABLET BY MOUTH EVERY DAY lidocaine [Lidoderm] 5 % adhesive patch,medicated 1 patch transdermal Q24H verapamil 240 mg capsule,ext rel. pellets 24 hr 240 mg PO DAILY Qty: 30 2RF methocarbamol 750 mg tablet 750 mg PO TID omeprazole 40 MG capsule,delayed release(DR/EC) 40 mg PO DAILY montelukast 10 MG tablet 10 mg PO PM venlafaxine 75 MG tablet extended release 24hr 75 mg PO POSTTR spironolactone [Aldactone] 50 mg tablet 50 mg PO DAILY Referrals Follow up/Referrals: Kaylin Sherman APRN [Primary Care Provider] - See instructions Clinical Impressions Clinical Impression: Low back pain Instructions Patient Instructions: DI for Acute Pain -- Adult Discharge ED Provider: Sylvain Jarvis General Adult HPI General Chief complaint: PAIN Stated complaint: Back pain Time Seen by Provider: 11/12/22 10:06 Mode of Arrival: Ambulatory Source of Information: Patient Limitations: No Limitations Description of Symptoms (Recalled from ER Triage Doc. by RN): c/o lower back pain after a big cough/deep breath this morning. PT states she has a disc gone and nerve damaged in her lower back with plans of surgery in November to fix this. History of Present Illness HPI narrative: Patient presents complaint of sudden onset of severe low back pain again this morning when she was bending over and felt a pop in her low back. She has a known history of degenerative disc disease and is scheduled for surgery in November. She this morning denies associated bowel or bladder incontinence or new weakness to the lower extremities. She does complain of intermittent numbness however she has been dealing with it for several months and is no worse this morning Related Data Home Medications Medication Instructions Recorded Confirmed montelukast 10 mg tablet 10 mg PO PM Allergy symptoms 07/18/20 11/01/22 omeprazole 40 mg capsule,delayed 40 mg PO DAILY GERD 07/18/20 11/01/22 release venlafaxine 75 mg tablet,extended 75 mg PO POSTTR Depression 09/29/21 11/01/22 release 24 hr lidocaine 5 % topical patch 1 patch transdermal Q24H Pain 08/06/22 11/01/22 (Lidoderm) meloxicam 15 mg tablet 15 mg PO DAILY Pain 08/06/22 11/01/22 tizanidine 4 mg tablet 1 mg PO TID PRN MUSCLES 08/06/22 11/01/22 spironolactone 50 mg tablet 50 mg PO DAILY Fluid 10/03/22 11/01/22 (Aldactone) methocarbamol 750 mg tablet 750 mg PO TID Pain 11/01/22 11/01/22 Previous Rx's Medication Instructions Recorded verapamil 240 mg 24 hr 240 mg PO DAILY BLOOD PRESSURE #30 09/25/22 capsule,extended release caps oxycodone-acetaminophen 5 mg-325 1 tab PO Q8H PRN pain #7 tabs 11/12/22 mg tablet (Percocet) Allergies Allergy/AdvReac Type Severity Reaction Status Date / Time aspirin [ASPIRIN] Allergy Unknown Hives Verified 09/03/22 09:07 iodine [IODINE] Allergy Unknown Hives Verified 09/03/22 09:07 labetalol [LABETALOL] Allergy Unknown Hives Verified 09/03/22 09:07 Penicillins [PENICILLINS] Allergy Unknown Verified 09/03/22 09:07 Sulfa (Sulfonamide Allergy Unknown Verified 09/03/22 09:07 Antibiotics) [SULFA (SULFONAMIDE ANTIBIOTICS)] triamcinolone [TRIAMCINOLONE] Allergy Unknown Verified 09/03/22 09:07 shellfish derived Allergy Hives Verified 09/03/22 09:07 [facility] Disclaimer: The information contained in this section may have been updated after the patient was seen, as this information can be updated by other users. Medical History (Reviewed 11/12/22 @ 10:07 by Karan
--- NOTE | 2022-11-12 10:34 | PC.NURSE ---
Rounded on patient; pt lying on ED stretcher with call light in reach. Requesting something to drink, will check with Dr. Jarvis.
--- NOTE | 2022-11-12 12:20 | PC.NURSE ---
PT CALLED OUT STATED SHE WAS NAUSEA FEELING I GAVE HER AND EMESIS BAG. TOLD ANDRES BETH CALL LIGHT AT BEDSIDE
--- NOTE | 2022-11-12 12:59 | PC.NURSE ---
ROUNDED ON PT, SHE IS SETTING UP IN BED STILL IN DISCOMFORT. CALL LIGHT AT BEDSIDE
--- NOTE | 2022-11-12 13:03 | PC.NURSE ---
pt reports not having a ride home at this time
== END 2022-11-12 13:48 | disposition home or self-care (01) ==
PROVIDERS: Emergency Provider Emergency Medicine; PCP Nurse Practitioner Family
DX: M54.50 Low back pain, unspecified (principal); F17.210 Nicotine dependence, cigarettes, uncomplicated; Z86.79 Personal history of other diseases of the circulatory system
CPT/HCPCS: 81001; 96374; 96375; 96376; 99284; J2405

== ENCOUNTER → 2022-11-19 13:15 | Outpatient (CLI) | payer OTHER, SELFPAY ==
[2022-11-20 08:16] LABS: FSH 7.4 mIU/mL (.)
== END ==
PROVIDERS: PCP Emergency Medicine; Visit Provider Obstetrics & Gynecology
DX: R23.2 Flushing (principal)
CPT/HCPCS: 36415; 82670; 83001

== ENCOUNTER → 2022-12-23 12:00 | Outpatient (POV) | payer OTHER, SELFPAY ==
[2022-12-23 12:53] VITALS: BP 133/70; PULSE 66; RESP 18; O2SAT 97; BMI 36.6
--- NOTE | 2022-12-23 13:07 | EXP.PAIN.SOA ---
[facility] Pain Management SOAP Note Subjective:: Patient is a pleasant 37-year-old female who presents today for follow-up.? We are currently treating the patient for degenerative disc disease of lumbar spine with lumbar radiculopathy symptoms, bilateral leg pain, low back pain.? Today the patient rates her pain a 9 out of 10. Patient denies any new trauma or injury. Patient denies any change location or type of pain she experiences. Patient continues to have severe pain in her low back and describes it as a aching, throbbing sensation that is worse with increased activity.? Patient has tried multiple injections without significant improvement. Patient states this does interfere with her ability to perform activities of daily living such as cooking or cleaning or even simple ambulation. She has been back to see Dr. Lundy at [facility] who stated that at this time she is not appropriate for surgical intervention. At her last visit we did discuss that she may be a beneficial candidate for a spinal cord stimulator trial or pain pump trial. She states that Dr. Lundy was recommending the pain pump over the spinal cord stimulator due to her history of nerve damage. She states that she needs to lose about [address] Lundy will consider any surgery. Patient has tried and failed conservative therapy such as oral medications, heat and ice, topicals, injective therapy, at home stretching and exercise for longer than 6 weeks as well as physical therapy approximately 6 months ago that caused worsening symptoms. She states that she did recently changed primary care doctors to Dr. George's office. She is now currently managed with Percocet 5 mg 3 times a day and gabapentin 800 mg 3 times a day. Patient denies any side effects from these medications. Her Alfredo is [phone]. Its been reviewed and appropriate. Review of Systems: General: No recent weight changes, no fever, no sleep disturbances Respiratory: No cough, no shortness of air, no recurring pulmonary infections Cardiovascular/peripheral vascular: No chest pain, no palpitations,? no edema, no shortness of breath Gastrointestinal: No new onset incontinence, normal bowel movements reported Genitourinary: No new onset incontinence Musculoskeletal: Low back pain, bilateral leg pain Psychiatric: [Normal mood/affect] Neurological: [Denies weakness in extremities], [denies balance issues] Objective:: Objective:: Physical Exam: General: Alert and oriented x3, no acute distress, pleasant and cooperative Lungs: Respirations even and unlabored, symmetrical chest expansion Eyes: PERRL Musculoskeletal: Flexion and extension of lumbar [spine] somewhat guarded secondary to pain, [antalgic gait noted] Neurological: Speech clear,? no gross sensory deficit Assessment:: Degenerative disc disease of lumbar spine with lumbar radiculopathy symptoms, low back pain, bilateral leg pain Plan:: Patient continues to experience severe pain in her low back with limited range of motion.? Patient has tried and failed conservative therapy such as oral medications, topicals, heat and ice, physical therapy, injection therapy, at home exercising and stretching for longer than 6 weeks.? She has already been to a orthospine surgeon who is stated she is not a surgical candidate at this time. patient's MRI did show degenerative disc disease with significant endplate changes L5-S1 and a small disc protrusion which contacts the left S1 nerve root and moderate bilateral neuroforaminal narrowing.? I have discussed with the patient that she may benefit from a pain pump trial.? Risk and benefits were discussed with the patient.? She would like to proceed forward with this plan of care.? We will proceed forward with a psychiatric evaluation with the plan to do a pain pump trial in the future if she is deemed an appropriate candidate. Patient has been instructed to contact the clinic with any concerns before the next appointment.? Dr. Guerrero has
== END ==
PROVIDERS: PCP Emergency Medicine; Visit Provider Nurse Practitioner Family
DX: M51.16 Intervertebral disc disorders with radiculopathy, lumbar region (principal); M79.604 Pain in right leg; M79.605 Pain in left leg
CPT/HCPCS: 99212; G0463

== ENCOUNTER → 2022-12-30 17:59 | Outpatient (CLI) | payer OTHER, SELFPAY ==
[2022-12-30 20:02] LABS: Amphetamine/Metha Screen,Urine Negative ng/ml (<1000)
[2022-12-30 20:03] LABS: Barbiturates Screen,Urine Negative ng/ml (<200)
[2022-12-30 20:04] LABS: Benzodiazepines Screen,Urine Negative ng/ml (<200); Cannabinoid Screen,Urine Positive ng/ml (<50)
[2022-12-30 20:05] LABS: Cocaine Screen,Urine Negative ng/ml (<300)
[2022-12-30 20:06] LABS: Methadone Screen,Urine Negative ng/ml (<300); Opiate Screen,Urine Negative ng/ml (<300)
[2022-12-30 20:07] LABS: Phencyclidine Screen,Urine Negative ng/ml (<25)
== END ==
PROVIDERS: PCP Emergency Medicine; Visit Provider Emergency Medicine
DX: Z79.899 Other long term (current) drug therapy (principal); R39.9 Unspecified symptoms and signs involving the genitourinary system
CPT/HCPCS: 80305; 87086

== ENCOUNTER → 2023-02-26 13:27 | Outpatient (CLI) | payer OTHER, SELFPAY ==
[2023-02-26 13:35] LABS: Barbiturates Screen,Urine Negative ng/ml (<200); Benzodiazepines Screen,Urine Negative ng/ml (<200)
[2023-02-26 13:36] LABS: Amphetamine/Metha Screen,Urine Negative ng/ml (<1000)
[2023-02-26 13:37] LABS: Cannabinoid Screen,Urine Positive ng/ml (<50); Cocaine Screen,Urine Negative ng/ml (<300)
[2023-02-26 13:38] LABS: Methadone Screen,Urine Negative ng/ml (<300)
[2023-02-26 13:39] LABS: Opiate Screen,Urine Negative ng/ml (<300); Phencyclidine Screen,Urine Negative ng/ml (<25)
== END ==
PROVIDERS: PCP Emergency Medicine; Visit Provider Emergency Medicine
DX: Z79.899 Other long term (current) drug therapy (principal)
CPT/HCPCS: 80305

== ENCOUNTER → 2023-02-26 23:20 | Outpatient (CLI) | payer OTHER, SELFPAY | PROVIDERS: PCP Emergency Medicine; Visit Provider Emergency Medicine | DX: Z79.899 Other long term (current) drug therapy (principal) ==

== ENCOUNTER 2023-03-07 09:45 | Day surgery (SDC) | payer OTHER, SELFPAY ==
[2023-03-07] VITALS (7 sets, daily range): BP systolic 117–165; BP diastolic 45–97; PULSE 65–83; RESP 18–20; TEMP 36.7; O2SAT 96–100; BMI 37.5
--- NOTE | 2023-03-07 13:16 | PC.NURSE ---
1300- PT AMBULATED IN HALLWAY, TOLERATED WELL. RATES PAIN 0/10
--- NOTE | 2023-03-07 16:46 | P.PCN_ITS ---
Procedure Date: 03/07/23 Time: 16:46 Anesthesiologist:: Arden Guerrero MD Complications:: None Pre-procedure Diagnosis:: Degenerative disc disease of lumbar spine with lumbar radiculopathy symptoms Post-procedure Diagnosis:: Same Indications for Procedure:: This patient is a pleasant 37-year-old white female who we are treating for low back pain with lumbar radiculopathy symptoms. She has increasing pain in her back radiating down both legs. She has failed all previous conservative treatm ents including injections, oral medications, physical therapy and she is not a candidate for surgery. She has had a successful psychological evaluation. She presents for intrathecal pump trial today. Procedure Details:: Pain pump trial Informed consent was obtained and the risk and benefits of the procedure was explained to the patient. The patient was taken to the procedure room and placed prone on the procedure table. Patient was prepped and draped in sterile fashion. C-arm fluoroscopy was used to view the lumbar spine. The skin and subcutaneous tissues were anesthetized using lidocaine. I placed a 18-gauge spinal needle into the L4-5 interspace and advanced until clear CSF was obtained. After this intrathecal catheter was inserted and advanced very easily to the L1 vertebral body. The needle was withdrawn. We were able to freely withdraw clear CSF through the catheter. We then injected intrathecal opioid single shot bolus of 25 mcg followed by saline and followed by the previous CSF that was withdrawn. The needle and catheter were then removed and a Band-Aid was placed. Patient tolerated the procedure well with no complications. We reevaluated the patient after 30 minutes to 1 hour. She was also reassessed by physical therapy. She was 90 to 100% better. She did very well with her pump trial. She was much more functional. Pain score is a 1 out of 10. Patient was discharged home neurologic intact with good relief of pain symptoms. By all indications this is a successful pump trial. We will plan on permanent placement with intrathecal morphine 1 mg per mill to start at 100 mcg/day. Catheter tip will be at the T8 vertebral body. Plan and Disposition:: We will follow-up with her in 1 week to assess efficacy of this trial. If successful we will plan on permanent placement of intrathecal morphine pain pump.
== END 2023-03-07 13:10 | disposition home or self-care (01) ==
LOC: SC.PAINP 09:47
PROVIDERS: PCP Emergency Medicine; Visit Provider Anesthesiology
DX: M51.16 Intervertebral disc disorders with radiculopathy, lumbar region (principal); F17.210 Nicotine dependence, cigarettes, uncomplicated
CPT/HCPCS: 62323

== ENCOUNTER 2023-04-05 09:38 | Emergency (ER) | payer OTHER, SELFPAY ==
[2023-04-05 09:38] VITALS: BP 117/58; PULSE 70; RESP 18; TEMP 36.6; O2SAT 100; BMI 37.5
[2023-04-05 10:01] VITALS: BP 104/49; PULSE 65; O2SAT 99
--- NOTE | 2023-04-05 10:05 | PC.NURSE ---
DR RUBIO AT BEDSIDE
--- NOTE | 2023-04-05 10:15 | CT_ITS ---
PROCEDURE INFORMATION: Exam: CT Thoracic Spine With Contrast Exam date and time: 04/05/2023 11:03 AM Age: 37 years old Clinical indication: Pain in thoracic spine; Patient HX: History of BP, worsening, atraumatic lbp TECHNIQUE: Imaging protocol: Computed tomography of the thoracic spine with contrast. Radiation optimization: All CT scans at this facility use at least one of these dose optimization techniques: automated exposure control; mA and/or kV adjustment per patient size (includes targeted exams where dose is matched to clinical indication); or iterative reconstruction. Contrast material: ISOVUE; Contrast volume: 75 ml; Contrast route: IV; REPORTING DATA: Count of CT and Cardiac NM exams in prior 12 months: This patient has received [address] and 0 known cardiac nuclear medicine studies in the 12 months prior to the current study. COMPARISON: CT LUMBAR SPINE WO CON 04/05/2023 11:01 AM FINDINGS: Bones/joints: There is preservation of vertebral alignment and vertebral body heights. Facet joints are aligned. No acute fracture. There is no significant osseous encroachment of the spinal canal or neural foraminal narrowing at any level. Soft tissues: Unremarkable. Lymph nodes: Calcified mediastinal and hilar lymph nodes suggest prior granulomatous exposure. Lungs: Scattered pulmonary granulomas noted. IMPRESSION: No acute fracture. No traumatic subluxation.
--- NOTE | 2023-04-05 10:15 | CT_ITS ---
PROCEDURE INFORMATION: Exam: CT Lumbar Spine Without Contrast Exam date and time: 04/05/2023 11:01 AM Age: 37 years old Clinical indication: Low back pain; Additional info: History of BP, worsening TECHNIQUE: Imaging protocol: Computed tomography of the lumbar spine without contrast. Radiation optimization: All CT scans at this facility use at least one of these dose optimization techniques: automated exposure control; mA and/or kV adjustment per patient size (includes targeted exams where dose is matched to clinical indication); or iterative reconstruction. REPORTING DATA: Count of CT and Cardiac NM exams in prior 12 months: This patient has received [address] and 0 known cardiac nuclear medicine studies in the 12 months prior to the current study. COMPARISON: MR LUMBAR SPINE WO CON 07/23/2022 9:14 AM FINDINGS: Bones/joints: There is preservation of vertebral alignment and vertebral body heights. Facet joints are aligned. No acute fracture. Diffuse disc bulge and facet arthropathy produce mild to moderate bilateral neural foraminal narrowing at L5-S1 level. Discogenic changes noted at L5-S1 level. There is vacuum phenomena within the L5-S1 disc (degenerative).Sacroiliac joints are intact. Soft tissues: Unremarkable. IMPRESSION: No acute fracture. No traumatic subluxation.
[2023-04-05 10:31] VITALS: BP 102/40; PULSE 66; O2SAT 100
--- NOTE | 2023-04-05 10:40 | HMH.EDGENADL ---
Discharge Plan Disposition Patient Disposition: Home, Self-Care Condition: Good Chief Complaint: Back Pain/Injury Prescriptions Prescriptions: No Action Flovent Diskus 100 mcg/actuation blister with device 1 inh inhalation Q12H albuterol sulfate 90 mcg/actuation HFA aerosol inhaler 1 puff inhalation Q6H PRN (Reason: shortness of breath or wheezing) Qty: 6.7 3RF tizanidine 4 mg tablet 1 mg PO TID PRN (Reason: MUSCLES) Patient Comments: TAKE 1 TABLET BY MOUTH THREE TIMES DAILY NEEDED FOR MUSCLE SPASMS gabapentin 800 mg tablet 800 mg PO QID Qty: 120 1RF bisoprolol fumarate 5 mg tablet 5 mg PO QDAY Qty: 30 5RF verapamil 240 mg capsule,ext rel. pellets 24 hr 240 mg PO DAILY Qty: 30 5RF atomoxetine [Strattera] 40 mg capsule 40 mg PO DAILY Qty: 30 0RF oxycodone-acetaminophen [Percocet] 10-325 mg tablet 1 tab PO QID mirtazapine [Remeron] 15 mg tablet 15 mg PO QHS Vraylar 3 mg capsule 3 mg PO DAILY omeprazole 40 MG capsule,delayed release(DR/EC) 40 mg PO DAILY montelukast 10 MG tablet 10 mg PO PM spironolactone [Aldactone] 50 mg tablet 50 mg PO DAILY bupropion HCl 100 mg tablet 100 mg PO BID Referrals Follow up/Referrals: Tristen George MD [Primary Care Provider] - See instructions Clinical Impressions Clinical Impression: Acute exacerbation of chronic low back pain Instructions Patient Instructions: DI for Low Back Pain Discharge ED Provider: Sylvain Hernandez General Adult HPI General Chief complaint: Back Pain/Injury Stated complaint: Back pain Time Seen by Provider: 04/05/23 09:44 Mode of Arrival: Wheelchair Limitations: No Limitations Description of Symptoms (Recalled from ER Triage Doc. by RN): PT WITH C/O LOW BACK PAIN FOR ABOUT 2 DAYS, WORSE TODAY. NO INJURY History of Present Illness HPI narrative: This is a 37-year-old female with history of illness anxiety, chronic neck and back pain secondary to DJD, hypertension, hyperlipidemia, vitiligo presenting with back pain. Patient states that she has been evaluated for spine surgery and pain pump, but has not had it placed yet. Is allegedly supposed to have surgery in the near future to address lower back pain. Patient states that 1 day prior to arrival, she was not doing anything in particular, but started having spasms in her lower back which radiate down her legs, primarily her right. Denies bowel or bladder dysfunction or any new onset numbness or weakness. She is currently on Percocet and gabapentin per her primary care physician for treatment, but they do not seem to help. Tried ibuprofen as well, but this did not seem to help. Atraumatic, no further relevant history Related Data Home Medications Medication Instructions Recorded Confirmed montelukast 10 mg tablet 10 mg PO PM Allergy symptoms 07/18/20 03/12/23 omeprazole 40 mg capsule,delayed 40 mg PO DAILY GERD 07/18/20 03/12/23 release tizanidine 4 mg tablet 1 mg PO TID PRN MUSCLES 08/06/22 03/12/23 spironolactone 50 mg tablet 50 mg PO DAILY Fluid 10/03/22 03/12/23 (Aldactone) fluticasone propionate 100 1 inh inhalation Q12H Breathing 12/10/22 03/12/23 mcg/actuation blister powder for problems inhalation (Flovent Diskus) bupropion HCl 100 mg tablet 100 mg PO BID MOOD 12/23/22 03/12/23 cariprazine 3 mg capsule (Vraylar) 3 mg PO DAILY MOOD 03/07/23 03/12/23 mirtazapine 15 mg tablet (Remeron) 15 mg PO QHS . 03/07/23 03/12/23 oxycodone-acetaminophen 10 mg-325 1 tab PO QID Pain 03/07/23 03/12/23 mg tablet (Percocet) Previous Rx's Medication Instructions Recorded albuterol sulfate 90 mcg/actuation 1 puff inhalation Q6H PRN 12/10/22 aerosol inhaler shortness of breath or wheezing #6.7 grams gabapentin 800 mg tablet 800 mg PO QID Pain #120 tabs 02/26/23 bisoprolol fumarate 5 mg tablet 5 mg PO QDAY #30 tabs 03/12/23 verapamil 240 mg 24 hr 240 mg PO DAILY BLOOD PRESSURE #30 03/14/23 caps
--- NOTE | 2023-04-05 10:41 | PC.NURSE ---
pt ambulatory to restroom without complications
--- NOTE | 2023-04-05 10:48 | PC.NURSE ---
PT TO XR
[2023-04-05 11:31] VITALS: BP 105/47; PULSE 64; O2SAT 99
[2023-04-05 12:01] VITALS: BP 111/55; PULSE 62; O2SAT 98
--- NOTE | 2023-04-05 12:25 | PC.NURSE ---
GAVE PT DIET PEPSI AND NOTIFIED NURSE MARCIA AND DR. RUBIO THAT PT STATES SHOT SHE WAS GIVEN IS NOT HELPING ANY WITH HER PAIN
[2023-04-05 12:45] VITALS: BP 102/62; PULSE 60; RESP 17; TEMP 36.8; O2SAT 98
== END 2023-04-05 12:45 | disposition home or self-care (01) ==
PROVIDERS: Emergency Provider Emergency Medicine; PCP Emergency Medicine
DX: M54.50 Low back pain, unspecified (principal); I10 Essential (primary) hypertension; E78.5 Hyperlipidemia, unspecified; F31.81 Bipolar II disorder; I20.9 Angina pectoris, unspecified; F17.210 Nicotine dependence, cigarettes, uncomplicated
CPT/HCPCS: 72129; 72131; 96372; 99284; 99285

== ENCOUNTER 2023-04-18 08:04 | Day surgery (SDC) | payer OTHER, SELFPAY ==
[2023-04-16 10:46] VITALS: BMI 38.3
[2023-04-18 08:46] VITALS: BP 97/48; PULSE 76; RESP 18; TEMP 36.3; O2SAT 99
[2023-04-18 08:49] LABS: HCG Qualitative, Serum Negative (Negative)
[2023-04-18 08:53] LABS: Amphetamine/Metha Screen,Urine Negative ng/ml (<1000); Barbiturates Screen,Urine Negative ng/ml (<200)
[2023-04-18 08:54] LABS: Benzodiazepines Screen,Urine Negative ng/ml (<200)
[2023-04-18 08:55] LABS: Cannabinoid Screen,Urine Positive ng/ml (<50); Cocaine Screen,Urine Negative ng/ml (<300)
[2023-04-18 08:56] LABS: Methadone Screen,Urine Negative ng/ml (<300)
[2023-04-18 08:57] LABS: Opiate Screen,Urine Negative ng/ml (<300); Phencyclidine Screen,Urine Negative ng/ml (<25)
[2023-04-18 09:07] LABS: Anion Gap 11.7 mEq/L (5-15); Blood Urea Nitrogen 15 mg/dl (7-17); Calcium 9.8 mg/dl (8.4-10.2); Carbon Dioxide 27 mmol/L (22.0-30.0); Chloride 106 mmol/L (98-107); Creatinine Clearance Estimated 147 mL/min (50-200); Estimated Glomerular Filt Rate 70 ml/min (>60); GFR (African American) 84 ML/MIN (>60); Glucose 100 mg/dl (74-100); Potassium 4.7 mmoL/L (3.5-5.1); Sodium 140 mmol/L (136-145)
[2023-04-18 11:06] LABS: Basophils # 0.1 K/mm3 (0-0.2); Basophils % 0.6 % (0.1-2.0); Eosinophils # 0.3 K/mm3 (0.0-0.4); Hematocrit 40.2 % (37.0-47.0); Hemoglobin 13.7 g/dL (12.2-16.2); Lymphocytes # 2.6 K/mm3 (0.7-4.5); Lymphocytes % 30.4 % (10-50); Mean Corpuscular HGB Conc 34.1 g/dL (31.8-35.4); Mean Corpuscular Hemoglobin 23.9 pg (27.0-31.2); Mean Corpuscular Volume 85.9 fl (81-99); Monocytes # 0.4 K/mm3 (0.1-1.0); Monocytes % 5.1 % (1.7-9.3); Neutrophils # 5.2 K/mm3 (1.8-7.8); Neutrophils % 60.7 % (37.0-80.0); Platelet Count 430 K/mm3 (142-424); Red Blood Count 4.68 M/mm3 (4.20-5.40); Red Cell Distribution Width 12.5 % (11.5-17.5); White Blood Count 8.6 K/mm3 (4.8-10.8)
[2023-04-18 14:05] VITALS: BP 118/52; PULSE 84; RESP 17; TEMP 36.6; O2SAT 98
[2023-04-18 14:15] VITALS: BP 132/70; PULSE 76; RESP 18; O2SAT 98
[2023-04-18 14:25] VITALS: BP 113/81; PULSE 79; RESP 17; O2SAT 97
[2023-04-18 14:35] VITALS: BP 114/80; PULSE 68; RESP 17; O2SAT 98
--- NOTE | 2023-04-18 18:14 | EXP.ANES.CKL ---
[facility] Disclaimer: The information contained in this section may have been updated after the patient was seen, as this information can be updated by other users. Medical History Abnormal cardiovascular stress test Attention deficit disorder (ADD) in adult Atypical angina Bipolar II disorder Bradycardia Dizziness History of depression History of schizoaffective disorder History of tachycardia Insomnia Surgical History History of ankle surgery Hx of cardiac cath Hx of cholecystectomy Hx of tubal ligation Family History Other Hypertension Social History Smoking Status: Current every day smoker tobacco type: cigarettes and e-cigarettes second hand exposure: No alcohol intake: never substance use type: marijuana current occupational status: other Travel in the last 8 weeks: None household members: spouse and children housing: house current occupational exposures/hazards: No caffeine: Yes [facility] Anesthesia Checklist Patient Identification Patient Identification: Arm Band and Family Structural Data Planned Operative Procedure/s: Intrathecal PainPunp Placement Consent for Planned Operative Procedure(s) Verified: Yes Verified Documents: Surgical Consent and History and Physical NPO Status Verified Time NPO: 00:00 Additional verifications Patient : No Anesthesia Reactions: No Hx Blood Transfusions: No Blood Transfusion Reaction: No Cephalosporin Allergy: No Previous Colonoscopy: No Airway Assessment C-Spine Mobility Assessed: Yes TMJ Mobility Assessed: Yes Dentition: Poor Dentition Neurological Assessment Level of Consciousness: Awake, Alert, Appropriate and Follows Commands Hx Seizures: No Numbness or tingling in extremities: No Anesthesia Plan Anesthesia Risk discussed: Yes ASA Class: II Anesthesia Type: MAC Preoperative Comments Pre-Operative Comments: ADHD. Tachy Ariththias.
--- NOTE | 2023-04-25 09:06 | EXP.OP.NOTE ---
Date of procedure: 04/18/23 Pre-op Diagnosis:: Degenerative disc disease of lumbar spine with lumbar radiculopathy symptoms Post-op Diagnosis:: Same Procedure performed:: Permanent placement intrathecal pain pump Surgeon:: Arden Guerrero MD CASE REVIEWER:: Other Anesthesia: MAC Estimated blood loss (mL): 5 Clinical Note:: This patient is a pleasant 37-year-old white female who we are treating for low back pain with lumbar radiculopathy symptoms. She has failed all previous conservative treatments including injections, oral medications, physical therapy and she is not a candidate for surgery. She has had a successful psychological evaluation. She is also had a successful intrathecal pump trial. She presents for permanent placement of her intrathecal pain pump today. Operative findings:: None Operative note:: Informed consent was obtained the risk and benefits of the procedure were explained to the patient. Patient was taken to the operating room placed prone on the procedure table. She was prepped and draped in sterile fashion. C-arm fluoroscopy was used to view the left flank. The skin and subcutaneous tissues mcfp between the iliac crest and 12th rib were anesthetized using lidocaine. We created the pump pocket. C-arm fluoroscopy was then used to view the lumbar spine. The skin and subcutaneous tissues adjacent to the L4-5 L5-S1 interspace were anesthetized using lidocaine. I made an incision and dissected down to the lumbar paraspinous fascia. A 17-gauge spinal needle was inserted and advanced into the L4-5 interspace until clear CSF was obtained. After this intrathecal catheter was inserted and advanced very easily to the T8 vertebral body. The stylette of the catheter and the needle were withdrawn. The catheter was secured to the fascia with anchoring device and 2-0 Prolene. I tunneled the catheter to the generator pocket created on the left flank. We filled the pump with 20 mils of intrathecal morphine 1 mg per mill. I connected the catheter to the pump. We were able to freely withdraw clear CSF through the sideport. Pump was placed in the pocket. Both incisions were irrigated with antibiotic solution. Both incisions were then closed with 2-0 Vicryl followed by betsy. We did use some 4-0 nylon however we did use absorbable betsy. Patient tolerated the procedure well with no complications. Pump was interrogated and started at 100 mcg/day of intrathecal morphine. Patient was discharged home neurologic intact with good relief of pain symptoms. Plan and disposition: We will follow-up with this patient in 1 week for wound check. We will follow-up in 2 to 3 weeks for suture removal. Condition: stable Disposition: PACU Complications:: None
== END 2023-04-18 14:45 | disposition home or self-care (01) ==
PROVIDERS: PCP Emergency Medicine; Visit Provider Anesthesiology
PROC: (CPT 62350; principal; 2023-04-18 10:30)
DX: M51.16 Intervertebral disc disorders with radiculopathy, lumbar region (principal)
CPT/HCPCS: 62350; 62362; 36415; 80048; 80305; 84703; 85025; 96374; C1755; C1772; J2405

== ENCOUNTER 2023-04-23 22:11 | Emergency (ER) | payer OTHER, SELFPAY ==
[2023-04-23 22:12] VITALS: BP 96/63; PULSE 77; RESP 16; TEMP 36.8; O2SAT 96; BMI 39.1
--- NOTE | 2023-04-23 23:16 | HMH.EDGENADL ---
Discharge Plan Disposition Patient Disposition: Home, Self-Care Chief Complaint: Wound/Laceration Prescriptions Prescriptions: No Action Flovent Diskus 100 mcg/actuation blister with device 1 inh inhalation Q12H albuterol sulfate 90 mcg/actuation HFA aerosol inhaler 1 puff inhalation Q6H PRN (Reason: shortness of breath or wheezing) Qty: 6.7 3RF tizanidine 4 mg tablet 1 mg PO TID PRN (Reason: MUSCLES) Patient Comments: TAKE 1 TABLET BY MOUTH THREE TIMES DAILY NEEDED FOR MUSCLE SPASMS gabapentin 800 mg tablet 800 mg PO QID Qty: 120 1RF atomoxetine [Strattera] 40 mg capsule 40 mg PO DAILY Qty: 30 0RF spironolactone [Aldactone] 50 mg tablet 50 mg PO DAILY Qty: 90 3RF omeprazole 40 mg capsule,delayed release(DR/EC) 40 mg PO DAILY Qty: 90 3RF verapamil 240 mg capsule,ext rel. pellets 24 hr 240 mg PO DAILY Qty: 30 5RF mirtazapine [Remeron] 15 mg tablet 15 mg PO QHS Vraylar 3 mg capsule 3 mg PO DAILY bisoprolol fumarate 5 mg tablet 5 mg PO QDAY clindamycin HCl 300 mg capsule 300 mg PO TID Qty: 21 0RF montelukast 10 MG tablet 10 mg PO PM bupropion HCl 100 mg tablet 100 mg PO BID Referrals Follow up/Referrals: Tristen George MD [Primary Care Provider] - See instructions Clinical Impressions Clinical Impression: Encounter for management of vacuum-assisted closure (VAC) of wound Instructions Patient Instructions: DI for Laceration Repair Discharge ED Provider: Sylvain Hernandez General Adult HPI General Chief complaint: Wound/Laceration Stated complaint: trouble with pain pump Time Seen by Provider: 04/23/23 22:13 Mode of Arrival: Ambulatory Source of Information: Patient Limitations: No Limitations Description of Symptoms (Recalled from ER Triage Doc. by RN): Pt ambulatory to ED by POV. Patient with recent pain pump insertion on Friday, wound vac in place. Reports orange light on wound vac has been blinking intermittently throughout day and concerned with placement. Pt has appt with pain management tomorrow 04/24 History of Present Illness HPI narrative: This is a 37-year-old female with history of chronic back pain status post pain pump placement on 04/18 presenting with wound VAC leak. Patient states that wound VAC started making sound about 6 hours prior to arrival. Because it would not stop, came to the ER for further evaluation. No drainage, redness, fevers, chills, or any other concerns. Related Data Home Medications Medication Instructions Recorded Confirmed montelukast 10 mg tablet 10 mg PO PM Allergy symptoms 07/18/20 04/16/23 tizanidine 4 mg tablet 1 mg PO TID PRN MUSCLES 08/06/22 04/16/23 fluticasone propionate 100 1 inh inhalation Q12H Breathing 12/10/22 04/16/23 mcg/actuation blister powder for problems inhalation (Flovent Diskus) bupropion HCl 100 mg tablet 100 mg PO BID MOOD 12/23/22 04/16/23 cariprazine 3 mg capsule (Vraylar) 3 mg PO DAILY MOOD 03/07/23 04/16/23 mirtazapine 15 mg tablet (Remeron) 15 mg PO QHS mood 03/07/23 04/16/23 bisoprolol fumarate 5 mg tablet 5 mg PO QDAY HR 04/16/23 04/16/23 Previous Rx's Medication Instructions Recorded albuterol sulfate 90 mcg/actuation 1 puff inhalation Q6H PRN 12/10/22 aerosol inhaler shortness of breath or wheezing #6.7 grams gabapentin 800 mg tablet 800 mg PO QID Pain #120 tabs 02/26/23 atomoxetine 40 mg capsule 40 mg PO DAILY . #30 caps 04/02/23 (Strattera) omeprazole 40 mg capsule,delayed 40 mg PO DAILY GERD #90 caps 04/10/23 release spironolactone 50 mg tablet 50 mg PO DAILY Fluid #90 tabs 04/10/23 (Aldactone) verapamil 240 mg 24 hr 240 mg PO DAILY BLOOD PRESSURE #30 04/10/23 capsule,extended release caps clindamycin HCl 300 mg capsule 300 mg PO TID #21 caps 04/18/23 Allergies Allergy/AdvReac Type Severity Reaction Status Date / Time aspirin [ASPIRIN] Allergy Unknown Hives Verified 04/18/23 08:45 iodine [IODINE] Allergy Unknow
[2023-04-23 23:36] VITALS: BP 102/69; PULSE 75; RESP 18; TEMP 36.7; O2SAT 96
== END 2023-04-23 23:38 | disposition home or self-care (01) ==
PROVIDERS: Emergency Provider Emergency Medicine; PCP Emergency Medicine
DX: Y83.1 Surgical operation with implant of artificial internal device as the cause of abnormal reaction of the patient, or of later complication, without mention of misadventure at the time of the procedure (principal); T81.89XA Other complications of procedures, not elsewhere classified, initial encounter; F17.210 Nicotine dependence, cigarettes, uncomplicated; I20.9 Angina pectoris, unspecified; F25.1 Schizoaffective disorder, depressive type
CPT/HCPCS: 99283

== ENCOUNTER → 2023-04-24 11:02 | Outpatient (POV) | payer OTHER, SELFPAY ==
--- NOTE | 2023-04-24 11:26 | EXP.PAIN.PRO ---
Procedure Date: 04/24/23 Time: 11:26 Anesthesiologist:: Christi Monroy APRN Complications:: None Pre-procedure Diagnosis:: Degenerative disc disease of lumbar spine with lumbar radiculopathy symptoms Post-procedure Diagnosis:: Same Indications for Procedure:: Patient is a pleasant 37-year-old female who presents today for 1 week follow-up of intrathecal pain pump placement. We are currently treating the patient for degenerative disc disease of lumbar spine with lumbar radiculopathy symptoms. Today she rates her pain a 8 out of 10. Patient denies any new trauma or injury. She denies any change to location or type of pain she experiences. Patient does state that she has not had any problems following the procedure except for yesterday she did go to the ER because the wound VAC was flashing different colors and making noise. Patient does state her pain today is still in her low back and describes it as an aching, throbbing sensation that is worse with increased activity. She is currently managed with morphine 1 mg/mL with a daily dose of 0.1 mg/day. Patient denies any side effects from this medication. She is also managed with gabapentin 800 mg 4 times a day from Dr. George's office. Patient denies any side effects from this medication. Patient was previously on Percocet tens however she was counseled that this medication would have to be discontinued when she had her intrathecal pain pump placed. Patient does state that she is still currently trying to discontinue her marijuana use. Her Alfredo is [phone]. Its been reviewed and appropriate. Physical Exam: General: Alert and oriented x3, no acute distress, pleasant and cooperative Lungs: Respirations even and unlabored, symmetrical chest expansion Eyes: PERRL Musculoskeletal: Flexion and extension of lumbar [spine] somewhat guarded secondary to pain, [antalgic gait noted] Neurological: Speech clear, no gross sensory deficit Skin: Incision site clean, dry, well approximated with sutures intact small rash noted posterior to her lower midline incision on her left buttocks Procedure Details:: Informed consent was obtained and the risk and benefits of the procedure were explained to the patient. Patient was taken to the procedure room where noninvasive monitoring was placed including noninvasive blood pressure cuff and pulse oximeter. Patient's pump was interrogated and was reprogrammed to morphine 0.11 mg/day. The patient tolerated the procedure well with no complications. Plan and Disposition:: Patient has been counseled to continue her postop restrictions of minimal bending, twisting or lifting, no submerging in water until her incision sites are fully healed, continue to wear her abdominal binder to prevent seroma formation. I have counseled the patient that she can apply hydrocortisone cream to her rash and allow it open to air. Patient did tolerate her intrathecal increase with no complications and was discharged neurologically intact. Patient will return to clinic in 2 weeks for reevaluation of symptoms and plan of care. Patient has been instructed to contact the clinic with any concerns before the next appointment. Dr. Guerrero has reviewed this note and agrees with this plan of care. This note was dictated using voice recognition software and make contain errors or omissions. -- It Is medically necessary for this patient to continue to have their intrathecal pump refilled at regular intervals. This patient had an intrathecal pain pump implanted after meeting criteria of chronic intractable pain for greater than 3 months and failing conservative treatments. Patient has committed and been compliant to the treatment plan and all planned follow up care. Since implantation of the intrathecal pain pump, the patient has had decreased pain and been more functional. Oral medications have been reduced including intake of oral opioids. Patient continues to do well with intrathecal therapy with decreas
[2023-04-24 11:33] VITALS: BP 156/87; PULSE 76; RESP 20; BMI 36.6
== END | disposition home or self-care (01) ==
PROVIDERS: PCP Emergency Medicine; Visit Provider Nurse Practitioner Family
DX: M51.16 Intervertebral disc disorders with radiculopathy, lumbar region (principal)
CPT/HCPCS: 62368

== ENCOUNTER → 2023-04-28 13:24 | Outpatient (CLI) | payer OTHER, SELFPAY ==
[2023-04-28 16:23] LABS: Amphetamine/Metha Screen,Urine Negative ng/ml (<1000); Benzodiazepines Screen,Urine Negative ng/ml (<200)
[2023-04-28 16:24] LABS: Barbiturates Screen,Urine Negative ng/ml (<200)
[2023-04-28 16:25] LABS: Cannabinoid Screen,Urine Positive ng/ml (<50); Cocaine Screen,Urine Negative ng/ml (<300)
[2023-04-28 16:26] LABS: Methadone Screen,Urine Negative ng/ml (<300); Opiate Screen,Urine Negative ng/ml (<300)
[2023-04-28 17:12] LABS: Phencyclidine Screen,Urine Negative ng/ml (<25)
== END ==
PROVIDERS: PCP Emergency Medicine; Visit Provider Emergency Medicine
DX: Z79.899 Other long term (current) drug therapy (principal)
CPT/HCPCS: 80305

== ENCOUNTER 2023-05-01 19:35 | Emergency (ER) | payer OTHER, SELFPAY ==
[2023-05-01 19:36] VITALS: BP 109/54; PULSE 65; RESP 16; TEMP 36.8; O2SAT 97; BMI 31.3
--- NOTE | 2023-05-01 20:25 | PC.NURSE ---
pt. rang out states her pain is getting worse, RN notified, MD will be notified when he becomes available
[2023-05-01 22:16] VITALS: BP 110/73; PULSE 61; RESP 14; TEMP 36.8; O2SAT 97
--- NOTE | 2023-05-01 22:26 | HMH.EDGENADL ---
Discharge Plan Disposition Patient Disposition: Home, Self-Care Condition: Good Chief Complaint: PAIN Prescriptions Prescriptions: No Action Flovent Diskus 100 mcg/actuation blister with device 1 inh inhalation Q12H albuterol sulfate 90 mcg/actuation HFA aerosol inhaler 1 puff inhalation Q6H PRN (Reason: shortness of breath or wheezing) Qty: 6.7 3RF tizanidine 4 mg tablet 1 mg PO TID PRN (Reason: MUSCLES) Patient Comments: TAKE 1 TABLET BY MOUTH THREE TIMES DAILY NEEDED FOR MUSCLE SPASMS lidocaine 5 % adhesive patch,medicated 1 patch topical DAILY Patient Comments: APPLY 1 PATCH TOPICALLY TO THE AFFECTED AREA ONCE DAILY AND LEAVE IN PLACE FOR 12 HOURS, THEN REMOVE AND LEAVE OFF FOR 12 HOURS -- FOR EXTERNAL USE ONLY-- gabapentin 800 mg tablet 800 mg PO QID Qty: 120 1RF oxycodone-acetaminophen 10-325 mg tablet 1 tab PO 4XD Qty: 120 0RF atomoxetine [Strattera] 40 mg capsule 40 mg PO DAILY Qty: 30 0RF spironolactone [Aldactone] 50 mg tablet 50 mg PO DAILY Qty: 90 3RF omeprazole 40 mg capsule,delayed release(DR/EC) 40 mg PO DAILY Qty: 90 3RF verapamil 240 mg capsule,ext rel. pellets 24 hr 240 mg PO DAILY Qty: 30 5RF mirtazapine [Remeron] 15 mg tablet 15 mg PO QHS Vraylar 3 mg capsule 3 mg PO DAILY bisoprolol fumarate 5 mg tablet 5 mg PO QDAY montelukast 10 MG tablet 10 mg PO PM bupropion HCl 100 mg tablet 100 mg PO BID Referrals Follow up/Referrals: Tristen George MD [Primary Care Provider] - See instructions Clinical Impressions Clinical Impression: Back pain Qualifiers: Back pain location: low back pain Chronicity: chronic Back pain laterality: bilateral Sciatica presence: with sciatica Sciatica laterality: bilateral sciatica Qualified Code(s): M54.42 - Lumbago with sciatica, left side Instructions Patient Instructions: DI for Chronic Pain -- Adult Discharge ED Provider: Arie Flores General Adult [facility] General Chief complaint: PAIN Stated complaint: Pt has pain pump with pain Time Seen by Provider: 05/01/23 19:56 Mode of Arrival: Ambulatory Source of Information: Patient Limitations: No Limitations Description of Symptoms (Recalled from ER Triage Doc. by RN): pt c/o bilateral hip pain radiating down legs that started 3 hour ago. pt had a pain pump placed on 04/18. History of Present Illness HPI narrative: Patient has a PMHx significant for obesity, HTN, asthma who presents to the ED with complaints of lumbar pain. Patient notes that she had a pain pump placed on 04/18. Over the past 3 hours prior to arrival, patient notes that she has been having progressively worsening lower lumbar back pain which she describes as a sharp radiating pain. Patient notes that the pain is radiating down into bilateral lower extremities. Patient notes that the pain pump is a morphine pain pump. Patient is still been able to ambulate and does not have any new neurological deficits. Patient was concerned about the pain pump and decided come into the ED for evaluation. Related Data Home Medications Medication Instructions Recorded Confirmed montelukast 10 mg tablet 10 mg PO PM Allergy symptoms 07/18/20 04/28/23 tizanidine 4 mg tablet 1 mg PO TID PRN MUSCLES 08/06/22 04/28/23 fluticasone propionate 100 1 inh inhalation Q12H Breathing 12/10/22 04/28/23 mcg/actuation blister powder for problems inhalation (Flovent Diskus) bupropion HCl 100 mg tablet 100 mg PO BID MOOD 12/23/22 04/28/23 cariprazine 3 mg capsule (Vraylar) 3 mg PO DAILY MOOD 03/07/23 04/28/23 mirtazapine 15 mg tablet (Remeron) 15 mg PO QHS mood 03/07/23 04/28/23 bisoprolol fumarate 5 mg tablet 5 mg PO QDAY HR 04/16/23 04/28/23 lidocaine 5 % topical patch 1 patch topical DAILY 04/28/23 04/28/23 Previous Rx's Medication Instructions Recorded albuterol sulfate 90 mcg/actuation 1 puff inhalation Q6H PRN 12/10/22 aerosol inhaler shortness of breath or
== END 2023-05-01 22:34 | disposition home or self-care (01) ==
PROVIDERS: Emergency Provider Emergency Medicine; PCP Emergency Medicine
DX: M54.42 Lumbago with sciatica, left side (principal); I10 Essential (primary) hypertension; J45.909 Unspecified asthma, uncomplicated; E66.9 Obesity, unspecified; I20.9 Angina pectoris, unspecified; F25.0 Schizoaffective disorder, bipolar type; F17.210 Nicotine dependence, cigarettes, uncomplicated
CPT/HCPCS: 96372; 96374; 99284

== ENCOUNTER → 2023-05-08 14:49 | Outpatient (POV) | payer OTHER, SELFPAY ==
--- NOTE | 2023-05-08 15:21 | EXP.PAIN.PRO ---
Procedure Date: 05/08/23 Time: 15:21 Anesthesiologist:: Christi Monroy APRN Complications:: None Pre-procedure Diagnosis:: Degenerative disc disease of lumbar spine with lumbar radiculopathy symptoms Post-procedure Diagnosis:: Same Indications for Procedure:: Patient is a pleasant 37-year-old female who presents today for follow-up. We are currently treating the patient for degenerative disc disease of lumbar spine with lumbar radiculopathy symptoms. Today she rates her pain a 7 out of 10. Patient denies any new trauma or injury. She denies any change location or type of pain she experiences. Patient is currently managed with morphine 1 mg/mL with a daily dose of 0.11 mg/day. Patient denies any side effects from this medication. She states she continues to have worsening pain in her low back and legs. Patient is also managed with gabapentin 800 mg 4 times a day from her primary care doctor. Her Alfredo is [phone]. Its been reviewed and appropriate. Physical Exam: General: Alert and oriented x3, no acute distress, pleasant and cooperative Lungs: Respirations even and unlabored, symmetrical chest expansion Eyes: PERRL Musculoskeletal: Flexion and extension of lumbar [spine] somewhat guarded secondary to pain, [antalgic gait noted] Neurological: Speech clear, no gross sensory deficit Skin: Incision sites clean, dry, well-approximated with minimal erythema noted, sutures intact Procedure Details:: Informed consent was obtained and the risk and benefits of the procedure were explained to the patient. Patient was taken to the procedure room where noninvasive monitoring was placed including noninvasive blood pressure cuff and pulse oximeter. Patient's pump was interrogated and was reprogrammed to morphine 0.1209 mg/day. The patient tolerated the procedure well with no complications. Plan and Disposition:: Patient's incision site was clean, dry, well-approximated with minimal erythema noted. We did remove the remaining sutures today and applied Steri-Strips. I have counseled the patient to continue her postop restriction of minimal bending, lifting or twisting, no submerging in water until her incision sites are fully healed and to continue using her abdominal binder to prevent seroma formation. Patient did tolerate her intrathecal increase with no complications and was discharged neurologically intact. Patient will return to clinic in 1 month for reevaluation of symptoms and possible intrathecal adjustment and reprogram. Patient has been instructed to contact the clinic with any concerns before the next appointment. Dr. Guerrero has reviewed this note and agrees with this plan of care. This note was dictated using voice recognition software and make contain errors or omissions. -- It Is medically necessary for this patient to continue to have their intrathecal pump refilled at regular intervals. This patient had an intrathecal pain pump implanted after meeting criteria of chronic intractable pain for greater than 3 months and failing conservative treatments. Patient has committed and been compliant to the treatment plan and all planned follow up care. Since implantation of the intrathecal pain pump, the patient has had decreased pain and been more functional. Oral medications have been reduced including intake of oral opioids. Patient continues to do well with intrathecal therapy with decrease in pain symptoms and increase in functional status. Stopping intrathecal medications can lead to life threatening withdrawal, seizures, cardiac arrest, severe pain, and possible . Pumps that are not refilled at regular intervals can be damages and cause and need for replacement. We continually titrate dose and concentration to optimize pain relief and function. We are limited in concentration for certain drugs to safely deliver medications through the pump and stay within the recommendations from the [employer] Consensus [employer] Guidelines. Depending o
[2023-05-08 15:36] VITALS: BP 117/56; PULSE 50; RESP 18; O2SAT 98; BMI 36.4
== END | disposition home or self-care (01) ==
PROVIDERS: PCP Emergency Medicine; Visit Provider Nurse Practitioner Family
DX: M51.16 Intervertebral disc disorders with radiculopathy, lumbar region (principal)
CPT/HCPCS: 62368; 99213; G0463

== ENCOUNTER → 2023-05-14 10:19 | Outpatient (POV) | payer OTHER, SELFPAY ==
[2023-05-14 10:48] VITALS: BP 128/73; PULSE 109; RESP 20; O2SAT 100; BMI 36.4
--- NOTE | 2023-05-14 11:01 | EXP.PAIN.PRO ---
Procedure Date: 05/14/23 Time: 11:02 Anesthesiologist:: Christi Monroy APRN Complications:: None Pre-procedure Diagnosis:: Degenerative disc disease of lumbar spine with lumbar radiculopathy symptoms Post-procedure Diagnosis:: Same Indications for Procedure:: Patient is a pleasant 37-year-old female who presents today for follow-up. We are currently treating the patient for degenerative disc disease of lumbar spine with lumbar radiculopathy symptoms. Today she rates her pain a 8 out of 10. Patient denies any new trauma or injury. She denies any change location or type of pain she experiences. Patient is currently managed with morphine 1 mg/mL with a daily dose of 0.1209 mg/day. Patient denies any side effects from this medication. She states she continues to have worsening pain in her low back and legs. She does also state that she is concerned about a small area on her midline incision that has not healed. Patient is also managed with gabapentin 800 mg 4 times a day from her primary care doctor. Her Alfredo is [phone]. Its been reviewed and appropriate. Physical Exam: General: Alert and oriented x3, no acute distress, pleasant and cooperative Lungs: Respirations even and unlabored, symmetrical chest expansion Eyes: PERRL Musculoskeletal: Flexion and extension of lumbar [spine] somewhat guarded secondary to pain, [antalgic gait noted] Neurological: Speech clear, no gross sensory deficit Skin: Incision sites clean, dry, well-approximated with minimal erythema noted, midline incision has 1 cm gapping however not open Procedure Details:: Informed consent was obtained and the risk and benefits of the procedure were explained to the patient. Patient was taken to the procedure room where noninvasive monitoring was placed including noninvasive blood pressure cuff and pulse oximeter. Patient's pump was interrogated and was reprogrammed to morphine 0.1332 mg/day. The patient tolerated the procedure well with no complications. Plan and Disposition:: I have counseled the patient to continue her postop restrictions and trying to not touch her midline lower incision. The lower incision does have a small 1 cm area that has gapping and that she did have skin glue and Steri-Strips applied to today. I have counseled the patient that we will continue to monitor and watch for any signs of infection. Patient tolerated her intrathecal increase with no complications and was discharged neurologically intact. She will return to clinic in 1 week for reevaluation of symptoms and plan of care. Patient has been instructed to contact the clinic with any concerns before the next appointment. Dr. Guerrero has reviewed this note and agrees with this plan of care. This note was dictated using voice recognition software and make contain errors or omissions. -- It Is medically necessary for this patient to continue to have their intrathecal pump refilled at regular intervals. This patient had an intrathecal pain pump implanted after meeting criteria of chronic intractable pain for greater than 3 months and failing conservative treatments. Patient has committed and been compliant to the treatment plan and all planned follow up care. Since implantation of the intrathecal pain pump, the patient has had decreased pain and been more functional. Oral medications have been reduced including intake of oral opioids. Patient continues to do well with intrathecal therapy with decrease in pain symptoms and increase in functional status. Stopping intrathecal medications can lead to life threatening withdrawal, seizures, cardiac arrest, severe pain, and possible . Pumps that are not refilled at regular intervals can be damages and cause and need for replacement. We continually titrate dose and concentration to optimize pain relief and function. We are limited in concentration for certain drugs to safely deliver medications through the pump and stay within the recommendations from the P
== END | disposition home or self-care (01) ==
PROVIDERS: PCP Emergency Medicine; Visit Provider Nurse Practitioner Family
DX: M51.16 Intervertebral disc disorders with radiculopathy, lumbar region (principal); Z97.8 Presence of other specified devices
CPT/HCPCS: 62368; 99213; G0463

== ENCOUNTER 2023-05-27 10:47 | Outpatient (POV) | payer OTHER, SELFPAY ==
[2023-05-27 11:21] VITALS: BP 164/84; PULSE 82; RESP 18; TEMP 36.4; O2SAT 94; BMI 31.3
--- NOTE | 2023-05-27 11:42 | EXP.PAIN.PRO ---
Procedure Date: 05/27/23 Time: 11:25 Anesthesiologist:: Rashi Ruiz CRNA Complications:: None Pre-procedure Diagnosis:: Degenerative disc disease lumbar spine multilevels. Lumbar radiculopathy. Bilateral sacroiliitis. Post-procedure Diagnosis:: Same. Indications for Procedure:: Patient is a very pleasant 37-year-old female that comes our clinic today for follow-up regarding her intrathecal pain pump management. Patient is approximately 6 weeks out from intrathecal pain pump implant. She is currently being managed with morphine sulfate 1 mg/mL at a dose of 0.1332 mg/day. Patient complaining of 10/10 pain across the lumbar spine. Patient states she has difficulty sitting or standing for any length of time. She has difficulty transitioning from sitting to standing. Upon examination patient has extreme point tenderness over the bilateral sacroiliac joints. She has positive bilateral sacroiliac joint compression test. Positive bilateral Shayla's test. Positive bilateral Gaenslen's test. Patient states her overall pain has improved since intrathecal pain pump implant. I discussed in detail with the patient regarding increasing pump and bilateral sacroiliac joint injections. She wishes to proceed. We will increase her pump by 10%. Her new rate will be 0.1463 mg/day Procedure Details:: Details of the procedure explained to the patient. The patient taken to procedure room placed in the sitting position. The intrathecal pain pump was interrogated. The rate was increased by 10%. Her new rate will be 0.1463 mg/day. Patient tolerated procedure without difficulty. No complications. Plan and Disposition:: We we will schedule the patient for bilateral sacroiliac joint injections in the near future. We will proceed with insurance verification and authorization. She was discharged without incident.
== END 2023-05-27 11:35 | disposition home or self-care (01) ==
LOC: SC.PAIN 10:48
PROVIDERS: PCP Emergency Medicine; Visit Provider Nurse Anesthetist, Certified Registered
DX: M51.16 Intervertebral disc disorders with radiculopathy, lumbar region (principal); M46.1 Sacroiliitis, not elsewhere classified; Z97.8 Presence of other specified devices
CPT/HCPCS: 62368

== ENCOUNTER → 2023-06-11 13:15 | Outpatient (POV) | payer OTHER, SELFPAY ==
--- NOTE | 2023-06-11 13:54 | EXP.PAIN.PRO ---
Procedure Date: 06/11/23 Time: 13:54 Anesthesiologist:: Christi Monroy APRN Complications:: None Pre-procedure Diagnosis:: Degenerative disc disease of lumbar spine with lumbar radiculopathy symptoms, bilateral sacroiliitis Post-procedure Diagnosis:: Same Indications for Procedure:: Patient is a pleasant 37-year-old female who presents today for follow-up. We are currently treating the patient for degenerative disc disease of lumbar spine with lumbar radiculopathy symptoms, bilateral sacroiliitis. Today she rates her pain a 9 out of 10. Patient denies any new trauma or injury. She states that she has been experiencing more pain and would like an increase of her pump medication. She is currently managed with morphine 1 mg/mL with a daily dose of 0.1463 mg/day. Patient denies any side effects from this medication. Patient is also managed with gabapentin 800 mg 4 times a day. Patient previously had been prescribed Percocet 10 mg 4 times a day as well from Dr. George's office. Her Alfredo is [phone]. Its been reviewed. Physical Exam: General: Alert and oriented x3, no acute distress, pleasant and cooperative Lungs: Respirations even and unlabored, symmetrical chest expansion Eyes: PERRL Musculoskeletal: Flexion and extension of lumbar [spine] somewhat guarded secondary to pain, [antalgic gait noted] Neurological: Speech clear, no gross sensory deficit Procedure Details:: Informed consent was obtained and the risk and benefits of the procedure were explained to the patient. Patient was taken to the procedure room where noninvasive monitoring was placed including noninvasive blood pressure cuff and pulse oximeter. Patient's pump was interrogated and was reprogrammed to morphine 0.1611 mg/day. The patient tolerated the procedure well with no complications. Plan and Disposition:: Patient tolerated her intrathecal increase with no complications and was discharged neurologically intact. I have counseled the patient that on her most current Alfredo it did show her Percocet 10 mg 4 times a day was just recently filled on May 29. Patient states that they filled the medication however she did not actually pick this medication up from [facility]. She states that she told them she had a intrathecal pain pump and that she could not do the oral medication. Patient states that she is only getting the gabapentin from Dr. George's office. We will call and confirm with [facility] regarding if this medication was picked up. Patient will return to clinic in 1 month for reevaluation of symptoms and plan of care. Patient has been instructed to contact the clinic with any concerns before the next appointment. Dr. Guerrero has reviewed this note and agrees with this plan of care. This note was dictated using voice recognition software and make contain errors or omissions. -- It Is medically necessary for this patient to continue to have their intrathecal pump refilled at regular intervals. This patient had an intrathecal pain pump implanted after meeting criteria of chronic intractable pain for greater than 3 months and failing conservative treatments. Patient has committed and been compliant to the treatment plan and all planned follow up care. Since implantation of the intrathecal pain pump, the patient has had decreased pain and been more functional. Oral medications have been reduced including intake of oral opioids. Patient continues to do well with intrathecal therapy with decrease in pain symptoms and increase in functional status. Stopping intrathecal medications can lead to life threatening withdrawal, seizures, cardiac arrest, severe pain, and possible . Pumps that are not refilled at regular intervals can be damages and cause and need for replacement. We continually titrate dose and concentration to optimize pain relief and function. We are limited in concentration for certain drugs to safely deliver medications through the pump and stay within the luis m
[2023-06-11 14:24] VITALS: BP 106/64; PULSE 53; RESP 20; O2SAT 99; BMI 31.3
== END | disposition home or self-care (01) ==
PROVIDERS: PCP Emergency Medicine; Visit Provider Nurse Practitioner Family
DX: M51.16 Intervertebral disc disorders with radiculopathy, lumbar region (principal); M46.1 Sacroiliitis, not elsewhere classified; Z97.8 Presence of other specified devices
CPT/HCPCS: 62368; 99213; G0463

== ENCOUNTER 2023-06-13 12:13 | Emergency (ER) | payer OTHER, SELFPAY ==
[2023-06-13 12:14] VITALS: BP 113/77; PULSE 68; RESP 18; TEMP 36.3; O2SAT 100; BMI 31.3
--- NOTE | 2023-06-13 12:27 | PC.NURSE ---
Dr. Calixto at BS
--- NOTE | 2023-06-13 12:28 | XR_ITS ---
FINAL REPORT CLINICAL HISTORY: fall, right hip pain COMPARISON: None FINDINGS: RIGHT HIP Two views of the right hip demonstrate no acute fracture or dislocation. The joint spaces appear normal. The visualized bony structures are well aligned. No soft tissue abnormality is seen. IMPRESSION: No acute bony abnormality. Reviewed, Interpreted and Dictated by Charlie Wei III, MD Transcribed by Marichuy Stark Authenticated and [facility]
--- NOTE | 2023-06-13 12:28 | CT_ITS ---
FINAL REPORT CLINICAL HISTORY: fall midline pain COMPARISON: 04/05/2023 FINDINGS: Axial imaging of the lumbar spine was obtained without contrast. Sagittal and coronal reformatted images were also obtained and reviewed.This study was performed with techniques to keep radiation doses as low as reasonably achievable (ALARA). Individualized dose reduction techniques using automated exposure control or adjustment of mA and/or kV according to the patient's size were employed. Spinal stimulator is present, new from prior. There is no fracture. There is severe degenerative change at L5-S1 with endplate sclerosis. There is vacuum phenomenon at L5-S1. The vertebral alignment is normal. IMPRESSION: New spinal stimulator. Stable degenerative change. Reviewed, Interpreted and Dictated by Charlie Wei III, MD Transcribed by Marichuy Stark Authenticated and [facility]
--- NOTE | 2023-06-13 12:29 | HMH.EDGENADL ---
Discharge Plan Disposition Patient Disposition: Home, Self-Care Chief Complaint: Fall Prescriptions Prescriptions: No Action Flovent Diskus 100 mcg/actuation blister with device 1 inh inhalation Q12H albuterol sulfate 90 mcg/actuation HFA aerosol inhaler 1 puff inhalation Q6H PRN (Reason: shortness of breath or wheezing) Qty: 6.7 3RF tizanidine 4 mg tablet 1 mg PO TID PRN (Reason: MUSCLES) Patient Comments: TAKE 1 TABLET BY MOUTH THREE TIMES DAILY NEEDED FOR MUSCLE SPASMS lidocaine 5 % adhesive patch,medicated 1 patch topical DAILY Patient Comments: APPLY 1 PATCH TOPICALLY TO THE AFFECTED AREA ONCE DAILY AND LEAVE IN PLACE FOR 12 HOURS, THEN REMOVE AND LEAVE OFF FOR 12 HOURS -- FOR EXTERNAL USE ONLY-- gabapentin 800 mg tablet 800 mg PO QID Qty: 120 1RF spironolactone [Aldactone] 50 mg tablet 50 mg PO DAILY Qty: 90 3RF omeprazole 40 mg capsule,delayed release(DR/EC) 40 mg PO DAILY Qty: 90 3RF verapamil 240 mg capsule,ext rel. pellets 24 hr 240 mg PO DAILY Qty: 30 5RF mirtazapine [Remeron] 15 mg tablet 15 mg PO QHS Qty: 30 0RF atomoxetine [Strattera] 40 mg capsule 40 mg PO DAILY Qty: 30 0RF Vraylar 3 mg capsule 3 mg PO DAILY Qty: 30 0RF bisoprolol fumarate 5 mg tablet 5 mg PO QDAY montelukast 10 MG tablet 10 mg PO PM bupropion HCl 100 mg tablet 100 mg PO BID morphine (PF) 1 mg/mL Solution 1 mg continuous intrathecal infusion CONT Rx Instructions: SEE EMR FOR CURRENT RATE ondansetron 4 mg tablet,disintegrating 4 mg PO Q8H PRN (Reason: nausea and vomiting) Qty: 30 0RF Activity Restrictions/Add. Instructions Additional Instructions/Restrictions: No evidence of fracture or dislocation or any acute bony pathology. Please take Tylenol and ibuprofen as discussed as needed for your symptoms return with any worsening symptoms. Clinical Impressions Clinical Impression: Lumbar strain, Strain of right hip, Fall Discharge ED Provider: Teena Calixto General Adult HPI General Chief complaint: Fall Stated complaint: fall Time Seen by Provider: 06/13/23 12:25 Mode of Arrival: EMS Source of Information: Patient Limitations: No Limitations Description of Symptoms (Recalled from ER Triage Doc. by RN): pt c/o L hip pain and L elbow pain r/t fall while at work. Pt denies LOC. History of Present Illness HPI narrative: 37-year-old female here after a fall with low back pain and right hip pain. States she had a mechanical fall at work landed directly onto her bottom has an intrathecal pain pump and states that she has midline lumbar spine pain and right hip pain denies any injuries elsewhere. She has been able to move her lower extremities any difficulty no lower extremity paralysis no saddle anesthesia no urinary or bowel incontinence no urinary retention no history of injection drug use no recent fevers or cancer. States she is not have any pain medicine yet. Related Data Home Medications Medication Instructions Recorded Confirmed montelukast 10 mg tablet 10 mg PO PM Allergy symptoms 07/18/20 06/11/23 tizanidine 4 mg tablet 1 mg PO TID PRN MUSCLES 08/06/22 06/11/23 fluticasone propionate 100 1 inh inhalation Q12H Breathing 12/10/22 06/11/23 mcg/actuation blister powder for problems inhalation (Flovent Diskus) bupropion HCl 100 mg tablet 100 mg PO BID MOOD 12/23/22 06/11/23 bisoprolol fumarate 5 mg tablet 5 mg PO QDAY HR 04/16/23 06/11/23 lidocaine 5 % topical patch 1 patch topical DAILY Pain 04/28/23 06/11/23 morphine (PF) 1 mg/mL injection 1 mg continuous intrathecal 05/08/23 06/11/23 solution infusion CONT Pain Previous Rx's Medication Instructions Recorded albuterol sulfate 90 mcg/actuation 1 puff inhalation Q6H PRN 12/10/22 aerosol inhaler shortness of breath or wheezing #6.7 grams omeprazole 40 mg capsule,delayed 40 mg PO DAILY GERD #90 caps 04/10/23 release spironolactone 50 mg tablet 50
[2023-06-13 12:30] VITALS: BP 126/51; PULSE 56; RESP 20; O2SAT 100
--- NOTE | 2023-06-13 13:09 | PC.NURSE ---
Pt called out and advised that she was still feeling pain RN notified.
--- NOTE | 2023-06-13 13:12 | PC.NURSE ---
Dr. Calixto at BS
[2023-06-13 13:18] VITALS: BP 139/78; PULSE 90; RESP 16; TEMP 36.4; O2SAT 99
== END 2023-06-13 13:19 | disposition home or self-care (01) ==
PROVIDERS: Emergency Provider Student in an Organized Health Care Education/Training Program; PCP Emergency Medicine
DX: S39.012A Strain of muscle, fascia and tendon of lower back, initial encounter (principal); S76.011A Strain of muscle, fascia and tendon of right hip, initial encounter; M25.522 Pain in left elbow; W19.XXXA Unspecified fall, initial encounter; Y99.0 Civilian activity done for income or pay; I20.9 Angina pectoris, unspecified; F31.81 Bipolar II disorder; F25.1 Schizoaffective disorder, depressive type; F17.210 Nicotine dependence, cigarettes, uncomplicated
CPT/HCPCS: 72131; 73502; 96372; 99284

== ENCOUNTER → 2023-07-31 14:31 | Outpatient (POV) | payer OTHER, SELFPAY | PROVIDERS: Visit Provider Nurse Practitioner Family | DX: Z53.9 Procedure and treatment not carried out, unspecified reason (principal) ==

== ENCOUNTER 2023-08-06 17:32 | Emergency (ER) | payer OTHER, SELFPAY ==
[2023-08-06 17:33] VITALS: BP 124/64; PULSE 66; RESP 16; TEMP 36.6; O2SAT 100; BMI 30.5
--- NOTE | 2023-08-06 17:48 | CT_ITS ---
PROCEDURE INFORMATION: Exam: CT Lumbar Spine Without Contrast Exam date and time: 08/06/2023 7:50 PM Age: 37 years old Clinical indication: Low back pain; Prior surgery; Surgery date: 6+ months; Surgery type: Pain pump; Additional info: PT rotated and popped back. C/O lbp x days. HX disc injury TECHNIQUE: Imaging protocol: Computed tomography of the lumbar spine without contrast. Radiation optimization: All CT scans at this facility use at least one of these dose optimization techniques: automated exposure control; mA and/or kV adjustment per patient size (includes targeted exams where dose is matched to clinical indication); or iterative reconstruction. REPORTING DATA: Count of CT and Cardiac NM exams in prior 12 months: This patient has received 3 known CTs and 0 known cardiac nuclear medicine studies in the 12 months prior to the current study. COMPARISON: CT 06/13/2023 FINDINGS: Tubes, catheters and devices: A infusion catheter enters the spinal canal posteriorly at the L4-L5 level and extends superiorly on the right out of the field of view into the thoracic canal. Bones/joints: No acute fracture. Advanced degenerative disc disease at L5-S1 with [id number] degenerative disc disease at T11-12. Bulging disc spur complex at L5-S1 with associated moderate left and [id number] right foramina narrowing. Mild bulging disc at L2-L3 through L4-L5 with mild foramina narrowing. Soft tissues: Unremarkable. IMPRESSION: Degenerative changes most pronounced at L5-S1. No acute abnormality.
--- NOTE | 2023-08-06 17:48 | PC.NURSE ---
Pt ambulatory to bathroom and back to chair
--- NOTE | 2023-08-06 17:50 | PC.NURSE ---
Dr. Mcfarland at BS for pt eval
[2023-08-06 18:45] VITALS: BP 116/58; PULSE 56; O2SAT 99
--- NOTE | 2023-08-06 18:46 | PC.NURSE ---
Pt gone to RAD via wheelchair
--- NOTE | 2023-08-06 18:54 | PC.NURSE ---
Pt returned from RAD
--- NOTE | 2023-08-06 18:58 | PC.NURSE ---
Pt advised that she is still in pain. Dr. Mcfarland notified.
[2023-08-06 19:57] VITALS: BP 140/77; PULSE 88; RESP 18; TEMP 36.6; O2SAT 99
--- NOTE | 2023-08-06 20:06 | HMH.EDGENADL ---
Discharge Plan Disposition Patient Disposition: Home, Self-Care Condition: Good Prescriptions Prescriptions: New prednisone 20 mg tablet 40 mg PO BID 5 Days Qty: 20 0RF methocarbamol 750 mg tablet 750 mg PO Q8H PRN (Reason: pain) Qty: 20 0RF lidocaine [Lidoderm] 5 % adhesive patch,medicated 1 patch topical DAILY Qty: 15 0RF Rx Instructions: leave on most painful area for up to 12 hrs No Action Flovent Diskus 100 mcg/actuation blister with device 1 inh inhalation Q12H tizanidine 4 mg tablet 1 mg PO TID PRN (Reason: MUSCLES) Patient Comments: TAKE 1 TABLET BY MOUTH THREE TIMES DAILY NEEDED FOR MUSCLE SPASMS lidocaine 5 % adhesive patch,medicated 1 patch topical DAILY Patient Comments: APPLY 1 PATCH TOPICALLY TO THE AFFECTED AREA ONCE DAILY AND LEAVE IN PLACE FOR 12 HOURS, THEN REMOVE AND LEAVE OFF FOR 12 HOURS -- FOR EXTERNAL USE ONLY-- mirtazapine [Remeron] 30 mg tablet 30 mg PO QHS Qty: 30 1RF bupropion HCl 100 mg tablet 100 mg PO BID Qty: 60 1RF atomoxetine [Strattera] 60 mg capsule 60 mg PO DAILY Qty: 30 1RF Lybalvi 5-10 mg tablet 1 tab PO QHS Qty: 30 2RF spironolactone [Aldactone] 50 mg tablet 50 mg PO DAILY Qty: 90 3RF omeprazole 40 mg capsule,delayed release(DR/EC) 40 mg PO DAILY Qty: 90 3RF verapamil 240 mg capsule,ext rel. pellets 24 hr 240 mg PO DAILY Qty: 30 5RF gabapentin 800 mg tablet 800 mg PO QID Qty: 120 0RF albuterol sulfate 90 mcg/actuation HFA aerosol inhaler 1 puff inhalation Q6H PRN (Reason: shortness of breath or wheezing) Qty: 6.7 3RF bisoprolol fumarate 5 mg tablet 5 mg PO QDAY montelukast 10 MG tablet 10 mg PO PM morphine (PF) 1 mg/mL Solution 1 mg continuous intrathecal infusion CONT Rx Instructions: SEE EMR FOR CURRENT RATE ondansetron 4 mg tablet,disintegrating 4 mg PO Q8H PRN (Reason: nausea and vomiting) Qty: 30 0RF Referrals Follow up/Referrals: Tristen George MD [Primary Care Provider] - See instructions Activity Restrictions/Add. Instructions Additional Instructions/Restrictions: You were evaluated in the emergency department today. Please follow-up closely with your primary care provider as well as a specialist who inserted your pain pump. Return to the emergency department for new or worsening symptoms, such as numbness and tingling in your groin, urinating or defecating on yourself, or other concerns. Clinical Impressions Clinical Impression: Low back pain, Bulging lumbar disc Stand Alone Forms Stand Alone Forms: Work/School Release Instructions Patient Instructions: DI for Low Back Pain Discharge ED Provider: Christi Mcfarland General Adult HPI General Chief complaint: Back Pain/Injury Stated complaint: back pain Time Seen by Provider: 08/06/23 17:39 Mode of Arrival: EMS Source of Information: Patient Limitations: No Limitations Description of Symptoms (Recalled from ER Triage Doc. by RN): Patient reports having a pain pump and when she bent over at work she felt a pop in the middle of her lower back and now has pain. History of Present Illness HPI narrative: This patient is a 37-year-old female with a history of chronic low back pain with pain pump in place, lumbar disc disease, bipolar disorder, and ADD presenting to the emergency department for evaluation of low back pain. She reports that she was bending over at work when she felt a pop just prior to arrival. She states that it was in the middle of her low back. She denies any numbness, tingling, saddle anesthesia, incontinence, retention, or other concerns related to this. She was brought in by EMS from work for intractable pain. She was well prior to this without any acute concerns. No other issues noted at this time. Related Data Home Medications Medication Instructions Recorded Confirmed montelukast 10 mg tablet 10 mg PO PM Allergy symptoms 07/18/20 06/18/23
== END 2023-08-06 19:26 | disposition home or self-care (01) ==
PROVIDERS: Emergency Provider Emergency Medicine; PCP Emergency Medicine
DX: M51.36 Other intervertebral disc degeneration, lumbar region (principal); M54.50 Low back pain, unspecified; F17.210 Nicotine dependence, cigarettes, uncomplicated; I20.9 Angina pectoris, unspecified; F31.81 Bipolar II disorder; F90.9 Attention-deficit hyperactivity disorder, unspecified type; I10 Essential (primary) hypertension
CPT/HCPCS: 72131; 96372; 99284

== ENCOUNTER 2023-08-12 13:08 | Day surgery (SDC) | payer OTHER, SELFPAY ==
[2023-08-12 13:24] VITALS: BP 131/87; PULSE 65; RESP 16; TEMP 36.6; O2SAT 94; BMI 31.1
[2023-08-12 13:29] VITALS: BP 162/63; PULSE 69; O2SAT 96
--- NOTE | 2023-08-12 13:31 | EXP.PAIN.PRO ---
Procedure Date: 08/12/23 Time: 13:32 Anesthesiologist:: Rashi Ruiz CRNA Complications:: None Pre-procedure Diagnosis:: Degenerative disc lumbar spine multilevels. Lumbar radiculopathy. Bilateral sacroiliitis Post-procedure Diagnosis:: Same. Indications for Procedure:: Patient is a very pleasant 38-year-old female comes our clinic today for intrathecal pain pump irrigation refill. Patient currently being managed with morphine sulfate 1 mg/mL daily dose of 0.1611 mg/day. Patient reporting low lumbar back pain she describes as constant, dull, aching. Patient denies radicular symptoms. Patient requesting increase in the pump rate today. I think this is reasonable. We will increase her by 20%. Procedure Details:: Details of the procedure explained to the patient. The patient taken procedure room placed in the sitting position. The area of the pumps cleansed using chlorhexidine as a cleansing solution. The pump was interrogated. The pump was accessed with ease using 22-gauge inch and a half needle. 1.8 mL of solution was withdrawn discarded appropriately. The pump was then filled with 20 cc of a solution containing morphine sulfate 1 mg/mL. We will increase the pump rate by 20% today. The new rate will be 0.1932 mg/day. Patient tolerated procedure without difficulty. No complications. Plan and Disposition:: Patient was discharged without incident.
[2023-08-12 13:34] VITALS: BP 162/63; PULSE 70; O2SAT 97
[2023-08-12 13:40] VITALS: BP 128/62; PULSE 58; RESP 18; O2SAT 94
== END 2023-08-12 13:40 | disposition home or self-care (01) ==
PROVIDERS: PCP Emergency Medicine; Visit Provider Nurse Anesthetist, Certified Registered
DX: M51.16 Intervertebral disc disorders with radiculopathy, lumbar region (principal); M46.1 Sacroiliitis, not elsewhere classified; Z97.8 Presence of other specified devices
CPT/HCPCS: 95991

== ENCOUNTER 2023-10-08 12:26 | Outpatient (CLI) | payer OTHER, SELFPAY ==
[2023-10-08 17:08] LABS: Amphetamine/Metha Screen,Urine Negative ng/ml (<1000); Barbiturates Screen,Urine Negative ng/ml (<200); Benzodiazepines Screen,Urine Negative ng/ml (<200); Cannabinoid Screen,Urine Positive ng/ml (<50); Cocaine Screen,Urine Negative ng/ml (<300); Methadone Screen,Urine Negative ng/ml (<300)
[2023-10-08 17:49] LABS: Opiate Screen,Urine Negative ng/ml (<300); Phencyclidine Screen,Urine Negative ng/ml (<25)
== END 2023-10-08 23:59 ==
LOC: LAB.DROPOF 12:26
PROVIDERS: PCP Family Medicine; Visit Provider Family Medicine
DX: Z79.899 Other long term (current) drug therapy (principal)
CPT/HCPCS: 80307

== ENCOUNTER → 2023-10-28 13:12 | Day surgery (SDC) | payer OTHER, SELFPAY ==
[2023-10-28 13:27] VITALS: BP 142/99; PULSE 85; RESP 18; TEMP 36.2; O2SAT 100; BMI 44.1
[2023-10-28 13:45] VITALS: BP 131/62; PULSE 85; RESP 18; O2SAT 100
--- NOTE | 2023-10-28 13:46 | EXP.PAIN.PRO ---
Procedure Date: 10/28/23 Time: 13:30 Anesthesiologist:: Rashi Ruiz CRNA Complications:: None Pre-procedure Diagnosis:: Degenerative disc lumbar spine multilevels. Lumbar radiculopathy. Lumbar postlaminectomy syndrome. Post-procedure Diagnosis:: Same. Indications for Procedure:: Patient is a 38-year-old female comes our clinic today for intrathecal pain pump interrogation refill. She is currently being managed with morphine sulfate 1 mg/mL at 0.1932 mg/day. Patient requesting increase in rate due to increased back pain with activity. She rates her pain 4/10. However, patient reports overall since pump implantation she is doing much better. She reports being able to do much more housework and outdoor activities with minimal pain. Procedure Details:: Details of the procedure explained to the patient. The patient taken the procedure room placed in the sitting position. The area over the pump is cleansed using chlorhexidine's cleansing solution. The pump was interrogated. The pump was accessed with ease using a 22-gauge inch and half needle. 4.5 mL of solution was withdrawn discarded appropriate. The pump was then filled with 20 cc of a solution containing morphine sulfate 1 mg/mL. The rate will increase by 20%. The new rate is 0.2316 mg/day. Patient tolerated procedure without difficulty. There are no complications Plan and Disposition:: Patient was discharged without incident.
== END | disposition home or self-care (01) ==
PROVIDERS: PCP Family Medicine; Visit Provider Nurse Anesthetist, Certified Registered
DX: M51.16 Intervertebral disc disorders with radiculopathy, lumbar region (principal); M96.1 Postlaminectomy syndrome, not elsewhere classified; Z97.8 Presence of other specified devices; Z45.1 Encounter for adjustment and management of infusion pump
CPT/HCPCS: 95991

== ENCOUNTER 2023-12-23 12:44 | Day surgery (SDC) | payer OTHER, SELFPAY ==
[2023-12-23 13:01] VITALS: BP 106/81; PULSE 75; RESP 18; O2SAT 95; BMI 34.4
--- NOTE | 2023-12-23 13:20 | EXP.PAIN.PRO ---
Procedure Date: 12/23/23 Time: 13:20 Anesthesiologist:: Rashi Ruiz CRNA Complications:: None Pre-procedure Diagnosis:: Degenerative disc lumbar spine multilevels. Lumbar radiculopathy. Lumbar postlaminectomy syndrome Post-procedure Diagnosis:: Same. Indications for Procedure:: Patient is a very pleasant 38-year-old female comes our clinic today for intrathecal pain pump interrogation refill. Patient currently is being managed with morphine sulfate 1 mg/mL at a rate of 0.2316 mg/day. Patient requesting increase today due to low back pain. Patient states she has been very active over the last 2 to 3 days. Patient was increased by 20% at her last refill date on 10/28/2023. She reports significant improvement terms of her overall pain with that increase. Will repeat that increase today. This will be a 20% increase in her overall rate. Her new rate will be 0.2776 mg/day. Procedure Details:: Details of the procedure explained to the patient. The patient taken to procedure room placed in sitting position. The area of the pump was cleansed using chlorhexidine's cleansing solution. The pump was interrogated. The pump was accessed with ease using a 22-gauge inch and half needle. 5.5 mL solution was withdrawn discarded appropriate. Pump was then filled with 20 cc of solution containing morphine sulfate 1 mg/mL. The pump was interrogated. The rate was increased by 20%. The new rate will be 0.2776 mg/day. Patient tolerated the procedure without difficulty. There are no complications. Plan and Disposition:: Patient was discharged without incident.
[2023-12-23 13:35] VITALS: BP 140/56; PULSE 66; RESP 18; O2SAT 96
[2023-12-23 13:42] VITALS: BP 128/74; PULSE 76; RESP 18; O2SAT 96
[2023-12-23 13:44] VITALS: BP 128/74; PULSE 76; RESP 18; O2SAT 96
== END 2023-12-23 13:35 | disposition home or self-care (01) ==
PROVIDERS: PCP Family Medicine; Visit Provider Nurse Anesthetist, Certified Registered
DX: M51.16 Intervertebral disc disorders with radiculopathy, lumbar region (principal); M96.1 Postlaminectomy syndrome, not elsewhere classified; Z97.8 Presence of other specified devices; Z45.1 Encounter for adjustment and management of infusion pump
CPT/HCPCS: 62370

== ENCOUNTER 2023-12-31 14:28 | Emergency (ER) | payer OTHER, SELFPAY ==
[2023-12-31 14:40] VITALS: BP 148/87; PULSE 54; RESP 19; TEMP 36.6; O2SAT 99; BMI 44.4
--- NOTE | 2023-12-31 14:53 | ED_ITS ---
Discharge Plan Disposition Patient Disposition: Home, Self-Care Condition: Good Prescriptions Prescriptions: New ondansetron 4 mg tablet,disintegrating 4 mg PO Q8H PRN (Reason: nausea and vomiting) Qty: 10 0RF No Action metformin 500 mg tablet 500 mg PO DAILY Patient Comments: TAKE 1 TABLET BY MOUTH DAILY lamotrigine 25 mg tablet 25 mg PO DAILY albuterol sulfate [Ventolin HFA] 90 mcg/actuation HFA aerosol inhaler 1 inh INHALATION Q6HP PRN (Reason: SOA) Patient Comments: INHALE 1 PUFF BY MOUTH EVERY 6 HOURS NEEDED fluticasone propionate 50 mcg/actuation spray,suspension 1 spray INTRANASAL DAILY Patient Comments: SHAKE LIQUID AND USE 1 SPRAY IN EACH NOSTRIL DAILY bupropion HCl 300 mg tablet extended release 24 hr 300 mg PO DAILY atomoxetine 80 mg capsule 80 mg PO DAILY Patient Comments: TAKE 1 CAPSULE BY MOUTH DAILY Referrals Follow up/Referrals: Roman Almendarez, [Primary Care Provider] - See instructions Activity Restrictions/Add. Instructions Additional Instructions/Restrictions: Drink extra fluids with and between meals. If you have difficulty drinking, try very small amounts of water or suck on ice chips. ? Avoid fruit juices, as these do not replace minerals and can actually increase diarrhea. ? Children and adults can use sports drinks to replenish electrolytes. Younger children and infants should use products formulated for children, like oral rehydration solutions. ? Eat food in small amounts and let your stomach recover. ? Get lots of rest. You may feel tired or weak. ? No greasy or fried foods for the next 24-48 hours BRAT diet Bananas Rice Apples and [place] ? Make sure to drink plenty of liquids ? Return if needed ? Straight to ER if any life threatening symptoms ? Zofran as prescribed Make sure to watch your glucose levels ? Follow up with family doctor in the next 48-72 hours if no improvement or any worsening of symptoms Clinical Impressions Clinical Impression: Nausea & vomiting Instructions Patient Instructions: Nausea and Vomiting-Adult, Ondansetron Discharge ED Provider: Andie Jimenez [facility] [place] General Stated complaint: vomiting Mode of Arrival: Ambulatory Source of Information: Patient Limitations: No Limitations Time Seen by Provider: 12/31/23 14:56 Description of Symptoms (Recalled from Triage Doc. by RN): PATIENT C/O VOMITING SINCE FRIDAY HEENT Symptoms (Recalled from RN notes): No Resp Symptoms (Recalled from RN notes): No Skin Symptoms (Recalled from RN notes): No MS Symptoms (Recalled from RN notes): No Functional Status (Recalled from RN notes): WNL History of Present Illness Provider Complaint: Patient states that she started on Friday with upset stomach and had some vomiting but got worse today states if she feels hot it makes her sick at her stomach and she will vomit States today she hasnt been able to keep much down so she came in to get something to help Related Data Home Medications Medication Instructions Recorded Confirmed albuterol sulfate 90 mcg/actuation 1 inh inhalation Q6HP PRN SOA 12/31/23 12/31/23 aerosol inhaler (Ventolin HFA) atomoxetine 80 mg capsule 80 mg PO DAILY 12/31/23 12/31/23 bupropion HCl 300 mg 24 hr tablet, 300 mg PO DAILY 12/31/23 12/31/23 extended release fluticasone propionate 50 1 spray intranasal DAILY 12/31/23 12/31/23 mcg/actuation nasal spray,suspension lamotrigine 25 mg tablet 25 mg PO DAILY 12/31/23 12/31/23 metformin 500 mg tablet 500 mg PO DAILY 12/31/23 12/31/23 Previous Rx's Medication Instructions Recorded ondansetron 4 mg disintegrating 4 mg PO Q8H PRN nausea and 12/31/23 tablet vomiting #10 tabs Allergies Allergy/AdvReac Type Severity Reaction Status Date / Time aspirin [ASPIRIN] Allergy Unknown Hives Verified 12/23/23 13:01 iodine [IODINE] Allergy Unknown Hives Verified 12/23/23 13:01 labetalol [LABETALOL] Allergy Unknown Hives Verified 12/23/23 13:01 Penicillins [PENICILLINS] Allergy Unknown Verified 12/23/23 13:01 Sulfa (Sulfonamide Allergy Unknown Verified 12/23/23 13:01 Antibiotics) [SULFA (SULFONAMIDE ANTIBIOTICS)] triamcinolone [TRIAMCINOLONE] Allergy Unknown Verified 12/23/23 13:01 naproxen Allergy Verified 12/31/23 14:51 shellfish derived Allergy Hives Verified 12/23/23 13:01 amitriptyline AdvReac Mild Verified 12/23/23 13:01 Worker's Comp Is this a Worker's Comp case?: No [facility] Disclaimer: The information contained in this section may have been updated after the patient was seen, as this information can be updated by other users. Medical History (Updated 12/31/23 @ 15:37 by Andie Jimenez APRN) Fall Strain of right hip Lumbar strain History of tachycardia History of schizoaffective disorder History of depression Acute exacerbation of chronic low back pain Attention deficit disorder (ADD) in adult Insomnia Urinary frequency Lumbar back pain Nasal congestion Bipolar II disorder Preop cardiovascular exam Bilateral leg pain Symptomatic irreversible pulpitis Chest pain Shoulder sprain Abnormal cardiovascular stress test Dizziness Atypical angina Bradycardia Hypokalemia Facial contusion Syncope and collapse Exposure to COVID-19 virus Fracture dislocation of ankle joint Vomiting Postoperative abdominal pain Vertigo Atypical chest pain Positive blood culture Syncope Renal insufficiency ONIEL (acute kidney injury) Nasal abscess Chest pain Strep pharyngitis Surgical History Hx of cardiac cath Hx of cholecystectomy Hx of tubal ligation History of ankle surgery Family History Other Hypertension Social History Smoking Status: Current every day smoker tobacco type: cigarettes and e- cigarettes second hand exposure: No alcohol intake: never substance use type: marijuana current occupational status: employed Travel in the last 8 weeks: None household members: spouse and children housing: house current occupational exposures/hazards: No caffeine: Yes ROS Obtained: Yes All systems reviewed & no additional complaints except as documented and Yes Systems reviewed as appropriate & no additional complaints except as documented Constitutional Constitutional: Reports system reviewed and no additional complaints, except as documented, Reports as per HPI, Denies body ache, Denies chills, Denies fever(s) and Denies headache(s) ENT Ears, Nose, Mouth, and Throat: Reports system reviewed and no additional complaints, except as documented, Reports as per HPI and Denies headache(s) Cardiovascular Cardiovascular: Reports system reviewed and no additional complaints, except as documented and Reports as per HPI Respiratory Respiratory: Reports system reviewed and no additional complaints, except as documented and Reports as per HPI Gastrointestinal Gastrointestingal: Reports system reviewed and no additional complaints, except as documented, as per HPI, nausea and vomiting; Denies diarrhea Neurologic Neurologic: Denies headache(s) Physical Exam General General appearance: alert and in no apparent distress ENT ENT exam: Present mucous membranes moist Expanded ENT Exam Nose exam: Absent sinus tenderness Respiratory Respiratory exam: Present normal lung sounds bilaterally; Absent respiratory distress or wheezes Cardiovascular Cardiovascular exam: Present regular rate, normal rhythm and normal heart sounds Neurological Exam Neurological exam: Present alert, oriented X3 and normal gait Medical Decision Making Alfredo Inquiry Pt receiving controlled substance: No Alfredo was queried for this patient: No Vital Signs: 12/31/23 14:40 Temperature 97.8 F Temperature Source Oral Pulse Rate [Left Brachial] 54 L Respiratory Rate 19 Blood Pressure [Left Arm] 148/87 H Blood Pressure Mean [Left Arm] 107 Blood Pressure Source [Left Arm] Automatic Cuff Blood Pressure Position [Left Arm] Sitting 02 Sat by Pulse Oximetry 99 Oxygen Delivery Method Room Air Medical Decision Narrative: Patient states that she has take zofran in the past with no complications or reactions with her current medications No Vomiting in the UTC patient drinking gatoraid after zofran with no vomiting
[2023-12-31] MEDS: ONDANSETRON 4MG ODT 4 MG SL (15:16)
[2023-12-31 15:31] VITALS: BP 148/87; PULSE 54; RESP 19; TEMP 36.6; O2SAT 99
== END 2023-12-31 15:38 | disposition home or self-care (01) ==
PROVIDERS: Emergency Provider Nurse Practitioner; PCP Internal Medicine
DX: R11.2 Nausea with vomiting, unspecified (principal); F17.210 Nicotine dependence, cigarettes, uncomplicated
CPT/HCPCS: 99212; 99214; G0463

== ENCOUNTER 2024-02-10 10:54 | Day surgery (SDC) | payer OTHER, SELFPAY ==
[2024-02-10 11:11] VITALS: BP 151/64; PULSE 55; RESP 18; TEMP 36.5; O2SAT 99; BMI 38.3
[2024-02-10 11:26] VITALS: BP 139/53; PULSE 62; RESP 18; O2SAT 97
[2024-02-10 11:33] VITALS: BP 139/53; BP 146/65; PULSE 50; PULSE 62; RESP 18; O2SAT 97; O2SAT 99
--- NOTE | 2024-02-10 11:50 | EXP.PAIN.PRO ---
Procedure Date: 02/10/24 Time: 11:15 Anesthesiologist:: Rashi Ruiz CRNA Complications:: None Pre-procedure Diagnosis:: Degenerative disc lumbar spine multilevels. Lumbar radiculopathy. Lumbar postlaminectomy syndrome. Post-procedure Diagnosis:: Same. Indications for Procedure:: Patient is a very pleasant 38-year-old female comes our clinic today for intrathecal pain pump interrogation and refill. Patient is currently being managed with morphine sulfate 1 mg/mL at 0.2776 mg/day. Patient requesting increase due to low back pain as well as bilateral hip and leg radicular symptoms at times. She rates her pain today 5/10. I will increase the patient's pump by 10% today. Procedure Details:: Details of the procedure explained to the patient. The patient taken the procedure room placed in the sitting position. They over the pump was cleansed using chlorhexidine's cleansing solution. The pump was interrogated. The pump was accessed with ease using a 22-gauge inch and half needle. 5 mL of solution was withdrawn discarded appropriate. The pump was then filled with 20 cc of solution containing morphine sulfate 1 mg/mL. The rate will be increased to 0.3052 mg/day. Patient tolerated procedure without difficulty. There are no complications. Plan and Disposition:: Patient was discharged without incident.
[2024-02-10 13:19] LABS: Amphetamine/Metha Screen,Urine Negative ng/ml (<1000); Barbiturates Screen,Urine Negative ng/ml (<200)
[2024-02-10 13:20] LABS: Benzodiazepines Screen,Urine Negative ng/ml (<200)
[2024-02-10 13:21] LABS: Cannabinoid Screen,Urine Positive ng/ml (<50); Cocaine Screen,Urine Negative ng/ml (<300)
[2024-02-10 13:22] LABS: Methadone Screen,Urine Negative ng/ml (<300)
[2024-02-10 13:23] LABS: Opiate Screen,Urine Negative ng/ml (<300); Phencyclidine Screen,Urine Negative ng/ml (<25)
[2024-02-14 09:37] LABS: Opiates Negative (Cutoff=100)
== END 2024-02-10 11:33 | disposition home or self-care (01) ==
LOC: SC.PAINP 10:55
PROVIDERS: Anesthesiology; PCP Family Medicine; Visit Provider Nurse Anesthetist, Certified Registered
DX: M51.16 Intervertebral disc disorders with radiculopathy, lumbar region (principal); M96.1 Postlaminectomy syndrome, not elsewhere classified; Z97.8 Presence of other specified devices; Z45.1 Encounter for adjustment and management of infusion pump
CPT/HCPCS: 62370; 80307; 80361; 80365; G0480

== ENCOUNTER 2024-03-23 09:16 | Day surgery (SDC) | payer OTHER, SELFPAY ==
[2024-03-23 09:25] VITALS: BP 124/88; PULSE 70; RESP 18; TEMP 36.6; O2SAT 98; BMI 34.4
[2024-03-23 09:34] VITALS: BP 114/50; PULSE 71; RESP 18; O2SAT 98
[2024-03-23 09:35] VITALS: BP 114/50; PULSE 70; RESP 18; O2SAT 98
--- NOTE | 2024-03-23 09:41 | EXP.PAIN.PRO ---
Procedure Date: 03/23/24 Time: 09:40 Anesthesiologist:: Rashi Ruiz CRNA Complications:: None Pre-procedure Diagnosis:: Degenerative disc lumbar spine multilevels. Lumbar radiculopathy. Lumbar postlaminectomy syndrome. Lumbar spondylosis. Post-procedure Diagnosis:: Same. Indications for Procedure:: Patient is a very pleasant 38-year-old female comes our clinic today for intrathecal pain pump interrogation and refill and reprogram. We are changing her intrathecal morphine from 1 mg/mL to 2 mg/mL. Patient requesting increase in pump rate. She is having some increased low back pain with activity over the last 3 weeks. She describes the low back as intermittent, dull, aching. She rates her pain today 5/10. Procedure Details:: Details of the procedure explained to the patient. The patient taken procedure and placed in the sitting position. The area of the pump was cleansed using chlorhexidine as a cleansing solution. The pump was interrogated. The pump was accessed with ease using a 22-gauge inch and half needle. 6 mL of solution was withdrawn and discarded appropriately. The pump was then filled with 20 cc of solution containing morphine sulfate 2 mg/mL. The rate will be increased by 20%. The new rate will be 0.3664 mg/day. Patient tolerated the procedure without difficulty. There are no complications. Plan and Disposition:: Patient was discharged without incident.
[2024-03-23 09:50] VITALS: BP 123/51; PULSE 65; RESP 18; O2SAT 97
== END 2024-03-23 09:50 | disposition home or self-care (01) ==
PROVIDERS: PCP Family Medicine; Visit Provider Nurse Anesthetist, Certified Registered
DX: M51.36 Other intervertebral disc degeneration, lumbar region (principal); M47.26 Other spondylosis with radiculopathy, lumbar region; M96.1 Postlaminectomy syndrome, not elsewhere classified
CPT/HCPCS: 62370

== ENCOUNTER 2024-05-06 19:59 | Outpatient (CLI) | payer OTHER, SELFPAY ==
[2024-05-06 20:30] LABS: Basophils # 0.1 K/mm3 (0-0.2); Basophils % 1.1 % (0.1-2.0); Eosinophils # 0.3 K/mm3 (0.0-0.4); Eosinophils % 3.8 % (0.1-12.0); Hematocrit 44.8 % (37.0-47.0); Hemoglobin 14.3 g/dL (12.2-16.2); Lymphocytes # 3.3 K/mm3 (0.7-4.5); Lymphocytes % 40.8 % (10-50); Mean Corpuscular HGB Conc 31.8 g/dL (31.8-35.4); Mean Corpuscular Hemoglobin 28.9 pg (27.0-31.2); Mean Platelet Volume 9.1 fl (7.4-10.4); Monocytes # 0.4 K/mm3 (0.1-1.0); Neutrophils % 49.4 % (37.0-80.0); Platelet Count 500 K/mm3 (142-424); Red Blood Count 4.93 M/mm3 (4.20-5.40); Red Cell Distribution Width 13.7 % (11.5-17.5); White Blood Count 8.2 K/mm3 (4.8-10.8)
[2024-05-06 21:28] LABS: Alanine Aminotransferase 15 U/L (12-78); Albumin Level 4.5 g/dl (3.5-5.0); Albumin/Globulin Ratio 1.4 (1.1-1.8); Alkaline Phosphatase 102 U/L (38-126); Anion Gap 13.6 mEq/L (5-15); Aspartate Amino Transferase 27 U/L (14-36); Bilirubin,Total 0.5 mg/dl (0.2-1.3); Blood Urea Nitrogen 10 mg/dl (7-17); Calcium 9.7 mg/dl (8.4-10.2); Carbon Dioxide 28 mmol/L (22.0-30.0); Chloride 102 mmol/L (98-107); Cholesterol 221 mg/dl (140-200); Estimated Glomerular Filt Rate 69 ml/min (>60); GFR (African American) 84 ML/MIN (>60); Globulin 3.3 g/dL (1.3-3.2); Glucose 78 mg/dl (74-100); HDL Cholesterol 44 mg/dl (40-60); Potassium 4.6 mmoL/L (3.5-5.1); Sodium 139 mmol/L (136-145); Total Protein,Serum 7.8 g/dl (6.3-8.2); Triglycerides 133 mg/dl (30-150); VLDL Cholesterol 27 mg/dL (0-40)
[2024-05-06 21:39] LABS: Direct LDL Cholesterol 137.47 mg/dL (100-129)
[2024-05-06 21:45] LABS: 25-OH Vitamin D, Total 38.2 ng/mL (30-100)
[2024-05-06 21:58] LABS: Thyroid Stimulating Hormone 0.84 uIU/mL (0.465-4.68)
== END 2024-05-06 23:59 | disposition home or self-care (01) ==
LOC: LAB.DROPOF 20:01
PROVIDERS: PCP Family Medicine; Visit Provider Family Medicine
DX: I10 Essential (primary) hypertension (principal); E78.5 Hyperlipidemia, unspecified; F17.210 Nicotine dependence, cigarettes, uncomplicated
CPT/HCPCS: 80050; 80053; 80061; 82306; 84443; 85025

== ENCOUNTER 2024-06-15 11:28 | Day surgery (SDC) | payer OTHER, SELFPAY ==
[2024-06-15 11:46] VITALS: BP 133/85; PULSE 52; RESP 16; TEMP 36.4; O2SAT 100; BMI 31.9
[2024-06-15 12:03] VITALS: BP 133/73; PULSE 54; RESP 18; O2SAT 100
[2024-06-15 12:04] VITALS: BP 133/73; PULSE 54; RESP 18; O2SAT 100
--- NOTE | 2024-06-15 12:12 | EXP.PAIN.PRO ---
Procedure Date: 06/15/24 Time: 11:55 Anesthesiologist:: Rashi Ruiz CRNA Complications:: None Pre-procedure Diagnosis:: Degenerative disc lumbar spine multilevels. Lumbar radiculopathy. Lumbar postlaminectomy syndrome Post-procedure Diagnosis:: Same. Indications for Procedure:: Patient is a very pleasant 38-year-old female comes our clinic today for intrathecal pain pump interrogation and refill. Patient is currently being managed with morphine sulfate 2 mg/mL. Her rate is 0.3664 mg/day. She is requesting increase in her pump rate due to increase in low back pain. Will increase her pump by 20%. Patient is awake alert Brilliant x 3 in no acute distress. Flexion-extension lumbar spine somewhat guarded secondary to pain. Deep tendon reflexes upper and lower extremities normal. Motor strength upper and lower extremities normal. There is no gross sensory deficit. Gait is normal. Procedure Details:: Details of the procedure were explained to the patient. The patient taken the procedure room placed in the sitting position. The area over the pump was cleaned using chlorhexidine as a cleansing solution. The pump was interrogated. The pump was accessed with ease using a 22-gauge inch and half needle. 3 mL of solution was withdrawn discarded appropriate. The pump was then filled with morphine sulfate 2 mg/mL. Pump rate will be increased to 0.4399 mg/day. Patient tolerated procedure without difficulty. There are no complications. Plan and Disposition:: Patient was discharged without incident.
[2024-06-15 12:14] VITALS: BP 120/68; PULSE 62; RESP 18; O2SAT 97
== END 2024-06-15 12:14 | disposition home or self-care (01) ==
PROVIDERS: PCP Family Medicine; Visit Provider Nurse Anesthetist, Certified Registered
DX: M51.16 Intervertebral disc disorders with radiculopathy, lumbar region (principal); M96.1 Postlaminectomy syndrome, not elsewhere classified; Z79.891 Long term (current) use of opiate analgesic
CPT/HCPCS: 95991

== ENCOUNTER 2024-07-05 15:46 | Emergency (ER) | payer OTHER, SELFPAY ==
[2024-07-05 15:47] VITALS: BP 130/71; PULSE 60; RESP 16; TEMP 37; O2SAT 96; BMI 37.5
--- NOTE | 2024-07-05 15:49 | ED_ITS ---
Discharge Plan Disposition Patient Disposition: Home, Self-Care Condition: Good Prescriptions Prescriptions: New methocarbamol 750 mg tablet 750 mg PO Q6H PRN (Reason: muscle spasm) Qty: 20 0RF No Action atomoxetine [Strattera] 100 mg capsule 100 mg PO DAILY Qty: 30 2RF bupropion HCl 300 mg tablet extended release 24 hr 300 mg PO DAILY Qty: 30 1RF lamotrigine [Lamictal XR] 250 mg tablet extended release 24hr 250 mg PO DAILY Qty: 30 2RF nicotine 21-14-7 mg/24 hr patch, TD daily, sequential See Rx Instructions transdermal .COMPLEX Qty: 56 0RF Rx Instructions: apply 1-21 mg NICOTINE PATCH daily for 28 days; follow with 1-14 mg PATCH daily for 14 days, then 1-7mg PATCH daily for 14 days transdermal atorvastatin 10 mg tablet 10 mg PO DAILY Qty: 90 3RF docusate sodium 100 mg capsule 100 mg PO DAILY Qty: 90 3RF polyethylene glycol 3350 [Miralax] 17 gram/dose powder 17 g PO DAILY Qty: 510 3RF metformin 500 mg tablet 500 mg PO DAILY Qty: 90 3RF loratadine [Allergy Relief (loratadine)] 10 mg tablet,disintegrating 10 mg PO DAILY Qty: 90 3RF omeprazole 40 mg capsule,delayed release(DR/EC) 40 mg PO DAILY Qty: 30 2RF bisoprolol fumarate 10 mg tablet 10 mg PO DAILY Qty: 90 3RF spironolactone [Aldactone] 50 mg tablet 50 mg PO DAILY Qty: 90 3RF verapamil 240 mg capsule,ext rel. pellets 24 hr 240 mg PO DAILY Qty: 90 3RF albuterol sulfate [Ventolin HFA] 90 mcg/actuation HFA aerosol inhaler 1 inh INHALATION Q6HP PRN (Reason: SOA) Patient Comments: INHALE 1 PUFF BY MOUTH EVERY 6 HOURS NEEDED fluticasone propionate 50 mcg/actuation spray,suspension 1 spray INTRANASAL DAILY Patient Comments: SHAKE LIQUID AND USE 1 SPRAY IN EACH NOSTRIL DAILY ondansetron 4 mg tablet,disintegrating 4 mg PO Q8H PRN (Reason: nausea and vomiting) Qty: 10 0RF Referrals Follow up/Referrals: Nina Schultz APRN [Primary Care Provider] - See instructions Activity Restrictions/Add. Instructions Additional Instructions/Restrictions: Follow-up with Dr. Guerrero tomorrow. Follow-up with your mental health provider regarding your sleep disruption. Return to ER for any worsening signs or symptoms as needed Clinical Impressions Clinical Impression: Muscle spasm Print Language Print Language: Maltese Discharge ED Provider: Sylvain Hernandez General Adult HPI <ELOY Chowdhury - Last Filed: 07/05/24 21:28> General Chief complaint: PAIN Stated complaint: bilateral leg pain, fever Time Seen by Provider: 07/05/24 15:49 History of Present Illness HPI narrative: Patient presents for initially what was reported is bilateral lower extremity pain and fever. However at the time my exam patient is complaining only of muscle spasms in her left quadriceps and feeling hot. She denies fever chills hemoptysis hematochezia melena nausea vomiting diarrhea. She is following with Dr. Guerrero for chronic pain and has a morphine pain pump. For chronic back pain Related Data Home Medications ?Medication ?Instructions ?Recorded ?Confirmed albuterol sulfate 90 mcg/actuation 1 inh inhalation Q6HP PRN SOA 12/31/23 06/15/24 aerosol inhaler (Ventolin HFA) fluticasone propionate 50 1 spray intranasal DAILY 12/31/23 06/15/24 mcg/actuation nasal spray,suspension Previous Rx's ?Medication ?Instructions ?Recorded ondansetron 4 mg disintegrating 4 mg PO Q8H PRN nausea and 12/31/23 tablet vomiting #10 tabs atorvastatin 10 mg tablet 10 mg PO DAILY #90 tabs 05/19/24 docusate sodium 100 mg capsule 100 mg PO DAILY constipation #90 05/19/24 caps loratadine 10 mg disintegrating 10 mg PO DAILY ALLERGIES #90 tabs 05/19/24 tablet (Allergy Relief (loratadine)) metformin 500 mg tablet 500 mg PO DAILY #90 tabs 05/19/24 nicotine See Rx Instructions transdermal 05/19/24 21mg/24hr-14mg/24hr-7mg/24hr daily .COMPLEX #56 patches transderm patches,sequentl polyethylene glycol 3350 17 17 g PO DAILY constipation #510 05/19/24 gram/dose oral powder (Miralax) grams atomoxetine 100 mg capsule 100 mg PO DAILY #30 caps 05/26/24 (Strattera) bupropion HCl 300 mg 24 hr tablet, 300 mg PO DAILY #30 tabs 05/26/24 extended release lamotrigine 250 mg tablet,extended 250 mg PO DAILY #30 tabs 05/26/24 release 24 hr (Lamictal XR) bisoprolol fumarate 10 mg tablet 10 mg PO DAILY #90 tabs 06/03/24 omeprazole 40 mg capsule,delayed 40 mg PO DAILY #30 caps 06/03/24 release spironolactone 50 mg tablet 50 mg PO DAILY #90 tabs 06/03/24 (Aldactone) verapamil 240 mg 24 hr 240 mg PO DAILY #90 caps 06/03/24 capsule,extended release methocarbamol 750 mg tablet 750 mg PO Q6H PRN muscle spasm #20 07/05/24 tabs Allergies Allergy/AdvReac Type Severity Reaction Status Date / Time aspirin [ASPIRIN] Allergy Unknown Hives Verified 05/10/24 13:18 iodine [IODINE] Allergy Unknown Hives Verified 05/10/24 13:18 labetalol [LABETALOL] Allergy Unknown Hives Verified 05/10/24 13:18 Penicillins [PENICILLINS] Allergy Unknown Verified 05/10/24 13:18 Sulfa (Sulfonamide Allergy Unknown Verified 05/10/24 13:18 Antibiotics) [SULFA (SULFONAMIDE ANTIBIOTICS)] triamcinolone [TRIAMCINOLONE] Allergy Unknown Verified 05/10/24 13:18 naproxen Allergy Verified 05/10/24 13:18 shellfish derived Allergy Hives Verified 05/10/24 13:18 amitriptyline AdvReac Mild Verified 05/10/24 13:18 [facility] <ELOY Chowdhury - Last Filed: 07/05/24 21:28> [facility] Disclaimer: The information contained in this section may have been updated after the patient was seen, as this information can be updated by other users. Medical History Obesity, morbid, BMI 40.0-49.9 Will start Funmilayo on semaglutide at 0.25 mg/week. Will increase this to 0.5 etc. over the coming weeks as long as she tolerates it. Nausea & vomiting Fall Strain of right hip Lumbar strain History of tachycardia History of schizoaffective disorder History of depression Acute exacerbation of chronic low back pain Attention deficit disorder (ADD) in adult Insomnia Urinary frequency Lumbar back pain Nasal congestion Bipolar II disorder Preop cardiovascular exam Bilateral leg pain Symptomatic irreversible pulpitis Chest pain Shoulder sprain Abnormal cardiovascular stress test Dizziness Atypical angina Bradycardia Hypokalemia Facial contusion Syncope and collapse Exposure to COVID-19 virus Fracture dislocation of ankle joint Vomiting Postoperative abdominal pain Vertigo Atypical chest pain Positive blood culture Syncope Renal insufficiency ONIEL (acute kidney injury) Nasal abscess Chest pain Strep pharyngitis Surgical History Hx of cardiac cath Hx of cholecystectomy Hx of tubal ligation History of ankle surgery Family History Other Hypertension Social History Smoking Status: Never smoker second hand exposure: No alcohol intake: never substance use type: marijuana current occupational status: employed Travel in the last 8 weeks: None household members: spouse and children housing: house current occupational exposures/hazards: No caffeine: Yes Other Medical History Have you received the Flu Vaccine for this season: No Have you received the Pneumonia Vaccine: No <ELOY Chowdhury - Last Filed: 07/05/24 21:28> ROS Obtained: Yes Systems reviewed as appropriate & no additional complaints except as documented Physical Exam <ELOY Chowdhury - Last Filed: 07/05/24 21:28> General General appearance: alert and in no apparent distress Respiratory Respiratory exam: Present normal lung sounds bilaterally Cardiovascular Cardiovascular exam: Present regular rate Neurological Exam Neurological exam: Present alert, oriented X3 and normal gait; Absent motor sensory deficit Medical Decision Making <ELOY Chowdhury - Last Filed: 07/05/24 21:28> Medical Records Medical records reviewed: Yes I reviewed the patient's medical records. Screening: Per USPSTF and CDC recommendations, given the prevalence of disease in our region, it is our hospital?s policy to screen for HIV and viral Hepatitis for all patients aged 18 and over and those with ongoing risk factors. Alfredo Inquiry Pt receiving controlled substance: No Vital Signs: 07/05/24 15:47 07/05/24 18:16 Temperature 98.6 F 98.6 F Temperature Source Oral Oral Pulse Rate 71 Pulse Rate [Left Radial] 60 Respiratory Rate 16 16 Blood Pressure 117/85 Blood Pressure [Right Arm] 130/71 Blood Pressure Mean [Right Arm] 90 Blood Pressure Source Automatic Cuff Blood Pressure Source [Right Arm] Automatic Cuff Blood Pressure Position Sitting Blood Pressure Position [Right Arm] Sitting 02 Sat by Pulse Oximetry 96 Oxygen Delivery Method Room Air Room Air Lab Data Lab results reviewed: Yes I reviewed the patient's lab results. Lab Results 07/05/24 16:20: WBC 8.4, RBC 4.85, Hgb 14.3, Hct 42.5, MCV 87.5, MCH 29.4, MCHC 33.6, RDW 13.7, Plt Count 353, MPV 7.8, Neut % (Auto) 80.2 H, Lymph % (Auto) 15.8, [facility] % (Auto) 2.5, Eos % (Auto) 1.0, Baso % (Auto) 0.5, Neut # (Auto) 6.7, Lymph # (Auto) 1.3, [facility] # (Auto) 0.2, Eos # (Auto) 0.1, Baso # (Auto) 0.0, Sodium 137, Potassium 4.0, Chloride 106, Carbon Dioxide 26, Anion Gap 9.0, BUN 9, Creatinine 0.80, Estimated Creat Clear 161, Estimated GFR 79, Est GFR ( Amer) 96, Glucose 103 H, Lactate 0.9, Calcium 9.4, Magnesium 1.9, Total Bilirubin 0.7, AST 30, ALT 17, Alkaline Phosphatase 65, Total Creatine Kinase 123, Total Protein 7.2, Albumin 4.3, Globulin 2.9, Albumin/Globulin Ratio 1.5, Plasma/Serum Alcohol < 10, HIV 1&2 Antibody Rapid Nonreactive 07/05/24 17:08: Urine Color Yellow, Urine Appearance Clear, Urine pH 6.0, Ur Specific Lincoln >= 1.030, Urine Protein Negative, Urine Glucose (UA) Negative, Urine Ketones Trace, Urine Blood Negative, Urine Nitrate Negative, Urine Bilirubin 1+ A, Urine Urobilinogen 1.0, Ur Leukocyte Esterase Negative, Urine RBC None, Urine WBC 3-5, Ur Squamous Epith Cells 10-20, Urine Bacteria 2+, Urine HCG, Qual Negative, Urine Opiates Screen Positive H, Urine Methadone Screen Negative, Ur Barbituates Screen Negative, Ur Phencyclidine Scrn Negative, Ur Amphetamines Screen Negative, U Benzodiazepines Scrn Negative, Urine Cocaine Screen Negative, U Marijuana (THC) Screen Positive H 07/05/24 16:20 07/05/24 16:20 Orders (Tests/Meds): ED MEDICATIONS Discontinued Medications Generic Name Dose Route Start Last Admin Trade Name Garry PRN Reason Stop Dose Admin Acetaminophen 1,000 mg 07/05/24 16:02 07/05/24 16:22 Acetaminophen 500mg Tab PO 07/05/24 16:03 1,000 mg ONCE ONE Administration Methocarbamol 500 mg 07/05/24 16:02 07/05/24 16:22 Methocarbamol 500mg Tablet PO 07/05/24 16:03 500 mg ONCE ONE Administration ORDERS Category Date Time Status Blood alcohol [Ethyl Alcohol] Stat Lab 07/05/24 16:20 Completed CBC w/Auto Diff [Complete Blood Count Auto Diff] Stat Lab 07/05/24 16:20 Completed CK [Creatine Kinase] Stat Lab 07/05/24 16:20 Completed CMP [Comprehensive Metabolic Panel] Stat Lab 07/05/24 16:20 Completed Drug Screen,Urine Stat Lab 07/05/24 17:08 Completed HIV (1&2) Antibody Rapid Stat Lab 07/05/24 16:20 Completed Hep C Ab with Reflex to RNA Stat Lab 07/05/24 16:20 Received Lactic Acid Stat Lab 07/05/24 16:20 Completed Magnesium Stat Lab 07/05/24 16:20 Completed UA [Urinalysis and Microscopic] Stat Lab 07/05/24 17:08 Completed Urine , HCG Qual. Stat Lab 07/05/24 17:08 Completed Urine Culture Stat Micro 07/05/24 17:08 Received Medical Decision Narrative: In summary patient is a 38-year-old female who presents to the emergency department for evaluation of muscle spasms. Patient is hemodynamically stable upon arrival, afebrile. Physical exam is remarkable for quadriceps spasms periodically at the time of my exam but is neurovascular intact distally in her bilateral lower extremities has no focal neurologic deficits has no saddle anesthesia loss or bowel or bladder continence.. Differential diagnosis includes muscle spasm versus electrolyte abnormality. Initial workup will be conducted with hematologic labs urinalysis urine drug screen. Initial interventions include Tylenol and Robaxin. Initial workup reviewed by me shows her hematologic labs are nonactionable including normal electrolytes normal CK and sed rate bland urinalysis but positive for opiates which is prescribed and marijuana. Upon repeat evaluation patient reported moderate improvement after initial intervention. Given this patient is appropriate for discharge with a prescription for Robaxin, and patient is referred back to Dr. Guerrero of pain management this week for recheck. <Sylvain Hernandez MD - Last Filed: 07/05/24 21:33> Vital Signs: 07/05/24 15:47 07/05/24 18:16 Temperature 98.6 F 98.6 F Temperature Source Oral Oral Pulse Rate 71 Pulse Rate [Left Radial] 60 Respiratory Rate 16 16 Blood Pressure 117/85 Blood Pressure [Right Arm] 130/71 Blood Pressure Mean [Right Arm] 90 Blood Pressure Source Automatic Cuff Blood Pressure Source [Right Arm] Automatic Cuff Blood Pressure Position Sitting Blood Pressure Position [Right Arm] Sitting 02 Sat by Pulse Oximetry 96 Oxygen Delivery Method Room Air Room Air Lab Data Lab Results 07/05/24 16:20: WBC 8.4, RBC 4.85, Hgb 14.3, Hct 42.5, MCV 87.5, MCH 29.4, MCHC 33.6, RDW 13.7, Plt Count 353, MPV 7.8, Neut % (Auto) 80.2 H, Lymph % (Auto) 15.8, [facility] % (Auto) 2.5, Eos % (Auto) 1.0, Baso % (Auto) 0.5, Neut # (Auto) 6.7, Lymph # (Auto) 1.3, [facility] # (Auto) 0.2, Eos # (Auto) 0.1, Baso # (Auto) 0.0, Sodium 137, Potassium 4.0, Chloride 106, Carbon Dioxide 26, Anion Gap 9.0, BUN 9, Creatinine 0.80, Estimated Creat Clear 161, Estimated GFR 79, Est GFR ( Amer) 96, Glucose 103 H, Lactate 0.9, Calcium 9.4, Magnesium 1.9, Total Bilirubin 0.7, AST 30, ALT 17, Alkaline Phosphatase 65, Total Creatine Kinase 123, Total Protein 7.2, Albumin 4.3, Globulin 2.9, Albumin/Globulin Ratio 1.5, Plasma/Serum Alcohol < 10, HIV 1&2 Antibody Rapid Nonreactive 07/05/24 17:08: Urine Color Yellow, Urine Appearance Clear, Urine pH 6.0, Ur Specific Lincoln >= 1.030, Urine Protein Negative, Urine Glucose (UA) Negative, Urine Ketones Trace, Urine Blood Negative, Urine Nitrate Negative, Urine Bilirubin 1+ A, Urine Urobilinogen 1.0, Ur Leukocyte Esterase Negative, Urine RBC None, Urine WBC 3-5, Ur Squamous Epith Cells 10-20, Urine Bacteria 2+, Urine HCG, Qual Negative, Urine Opiates Screen Positive H, Urine Methadone Screen Negative, Ur Barbituates Screen Negative, Ur Phencyclidine Scrn Negative, Ur Amphetamines Screen Negative, U Benzodiazepines Scrn Negative, Urine Cocaine Screen Negative, U Marijuana (THC) Screen Positive H Orders (Tests/Meds): ED MEDICATIONS Discontinued Medications Generic Name Dose Route Start Last Admin Trade Name Freq PRN Reason Stop Dose Admin Acetaminophen 1,000 mg 07/05/24 16:02 07/05/24 16:22 Acetaminophen 500mg Tab PO 07/05/24 16:03 1,000 mg ONCE ONE Administration Methocarbamol 500 mg 07/05/24 16:02 07/05/24 16:22 Methocarbamol 500mg Tablet PO 07/05/24 16:03 500 mg ONCE ONE Administration ORDERS Category Date Time Status Blood alcohol [Ethyl Alcohol] Stat Lab 07/05/24 16:20 Completed CBC w/Auto Diff [Complete Blood Count Auto Diff] Stat Lab 07/05/24 16:20 Completed CK [Creatine Kinase] Stat Lab 07/05/24 16:20 Completed CMP [Comprehensive Metabolic Panel] Stat Lab 07/05/24 16:20 Completed Drug Screen,Urine Stat Lab 07/05/24 17:08 Completed HIV (1&2) Antibody Rapid Stat Lab 07/05/24 16:20 Completed Hep C Ab with Reflex to RNA Stat Lab 07/05/24 16:20 Received Lactic Acid Stat Lab 07/05/24 16:20 Completed Magnesium Stat Lab 07/05/24 16:20 Completed UA [Urinalysis and Microscopic] Stat Lab 07/05/24 17:08 Completed Urine , HCG Qual. Stat Lab 07/05/24 17:08 Completed Urine Culture Stat Micro 07/05/24 17:08 Received Medical Decision Narrative: In summary patient is a 38-year-old female who presents to the emergency department for evaluation of muscle spasms. Patient is hemodynamically stable upon arrival, afebrile. Physical exam is remarkable for quadriceps spasms periodically at the time of my exam but is neurovascular intact distally in her bilateral lower extremities has no focal neurologic deficits has no saddle anesthesia loss or bowel or bladder continence.. Differential diagnosis includes muscle spasm versus electrolyte abnormality. Initial workup will be conducted with hematologic labs urinalysis urine drug screen. Initial interventions include Tylenol and Robaxin. Initial workup reviewed by me shows her hematologic labs are nonactionable including normal electrolytes normal CK and sed rate bland urinalysis but positive for opiates which is prescribed and marijuana. Upon repeat evaluation patient reported moderate improvement after initial intervention. Given this patient is appropriate for discharge with a prescription for Robaxin, and patient is referred back to Dr. Guerrero of pain management this week for recheck. I was consulted by the PRUDENCIO, and we discussed the complexity of the problems being addressed. I approved the treatment and management plan for this patient's care in the Emergency Department, thus performing a substantive portion of the medical decision making. Sylvain Hernandez MD Critical Care <ELOY Chowdhury - Last Filed: 07/05/24 21:28> Critical Care Time Critical Care Time: No
[2024-07-05] MEDS: METHOCARBAMOL 500MG TABLET 500 MG PO (16:22)
[2024-07-05] MEDS: ACETAMINOPHEN 500MG TAB 1000 MG PO (16:22)
[2024-07-05 16:31] LABS: Basophils % 0.5 % (0.1-2.0); Eosinophils # 0.1 K/mm3 (0.0-0.4); Hematocrit 42.5 % (37.0-47.0); Hemoglobin 14.3 g/dL (12.2-16.2); Lymphocytes # 1.3 K/mm3 (0.7-4.5); Lymphocytes % 15.8 % (10-50); Mean Corpuscular HGB Conc 33.6 g/dL (31.8-35.4); Mean Corpuscular Hemoglobin 29.4 pg (27.0-31.2); Mean Corpuscular Volume 87.5 fl (81-99); Mean Platelet Volume 7.8 fl (7.4-10.4); Monocytes # 0.2 K/mm3 (0.1-1.0); Monocytes % 2.5 % (1.7-9.3); Neutrophils # 6.7 K/mm3 (1.8-7.8); Neutrophils % 80.2 % (37.0-80.0); Platelet Count 353 K/mm3 (142-424); Red Blood Count 4.85 M/mm3 (4.20-5.40); Red Cell Distribution Width 13.7 % (11.5-17.5); White Blood Count 8.4 K/mm3 (4.8-10.8)
[2024-07-05 16:44] LABS: Lactic Acid 0.9 mmol/L (0.7-2.1)
[2024-07-05 16:45] LABS: Alanine Aminotransferase 17 U/L (12-78); Albumin Level 4.3 g/dl (3.5-5.0); Albumin/Globulin Ratio 1.5 (1.1-1.8); Alkaline Phosphatase 65 U/L (38-126); Aspartate Amino Transferase 30 U/L (14-36); Bilirubin,Total 0.7 mg/dl (0.2-1.3); Blood Urea Nitrogen 9 mg/dl (7-17); Calcium 9.4 mg/dl (8.4-10.2); Carbon Dioxide 26 mmol/L (22.0-30.0); Chloride 106 mmol/L (98-107); Creatine Kinase 123 U/L (30-135); Creatinine Clearance Estimated 161 mL/min (50-200); Estimated Glomerular Filt Rate 79 ml/min (>60); GFR (African American) 96 ML/MIN (>60); Globulin 2.9 g/dL (1.3-3.2); Glucose 103 mg/dl (74-100); Magnesium 1.9 mg/dl (1.6-2.3); Sodium 137 mmol/L (136-145); Total Protein,Serum 7.2 g/dl (6.3-8.2)
[2024-07-05 17:09] LABS: Ethyl Alcohol < 10 mg/dl (0-10)
[2024-07-05 17:16] LABS: Microscopic, Urine URINE MICROSCOPIC (MICROSCOPIC)
[2024-07-05 17:24] LABS: Appearance,Urine CLEAR (Clear); Blood, Urine Negative (Negative); Color,Urine YELLOW (Yellow); Glucose,Urine (UA) Negative (Negative); Ketones,Urine TRACE (Negative); Leukocyte Esterase,Urine Negative (Negative); Nitrate,Urine Negative (Negative); Protein,Urine Negative (Negative); Specific Gravity, Urine >= 1.030 (1.005-1.030)
[2024-07-05 17:31] LABS: Bilirubin,Urine 1+ (Negative)
[2024-07-05 17:38] LABS: Amphetamine/Metha Screen,Urine Negative ng/ml (<1000); Benzodiazepines Screen,Urine Negative ng/ml (<200)
[2024-07-05 17:39] LABS: Barbiturates Screen,Urine Negative ng/ml (<200); Cannabinoid Screen,Urine Positive ng/ml (<50)
[2024-07-05 17:40] LABS: Cocaine Screen,Urine Negative ng/ml (<300)
[2024-07-05 17:41] LABS: Methadone Screen,Urine Negative ng/ml (<300); Opiate Screen,Urine Positive ng/ml (<300)
[2024-07-05 17:42] LABS: Phencyclidine Screen,Urine Negative ng/ml (<25)
--- NOTE | 2024-07-05 17:43 | PC.NURSE ---
PT C/O CONTINUED LEG PAIN, MALA OREILLY NOTIFIED
[2024-07-05 18:12] LABS: Bacteria,Urine 2+ /lpf
[2024-07-05 18:16] VITALS: BP 117/85; PULSE 71; RESP 16; TEMP 37; O2SAT 98
[2024-07-05 20:40] LABS: HIV (1&2) Antibody Rapid NONREACTIVE (NONREACTIVE)
[2024-07-05 20:49] LABS: Urine Pregnancy, HCG Qual. Negative (Negative)
[2024-07-07 10:14] LABS: HCV Ab Non Reactive (Non Reactive)
== END 2024-07-05 18:19 | disposition home or self-care (01) ==
PROVIDERS: Physician Assistant; Emergency Provider Emergency Medicine; PCP Family Medicine
DX: M79.604 Pain in right leg (principal); M79.605 Pain in left leg; R50.9 Fever, unspecified; M62.838 Other muscle spasm
CPT/HCPCS: 80053; 80307; 80320; 81001; 81025; 82550; 83605; 83735; 85025; 86803; 87086; 87389; 99283

== ENCOUNTER 2024-09-07 09:47 | Day surgery (SDC) | payer OTHER, SELFPAY ==
--- NOTE | 2024-09-07 09:51 | EXP.PAIN.PRO ---
Procedure Date: 09/07/24 Time: 10:15 Anesthesiologist:: Christi Monroy APRN Complications:: None Pre-procedure Diagnosis:: Degenerative disc disease of lumbar spine with lumbar radiculopathy symptoms Post-procedure Diagnosis:: Same Indications for Procedure:: Patient is a pleasant 39-year-old female who presents today for intrathecal refill and reprogram. Today she rates her pain a out of 10. Patient does state that she hit [employer] wall with her open right hand and she does present to deny with her hand in a splint. Patient does not state that she fractured it but does state that she occasionally has mood swings due to her bipolar. Patient denies any other changes. Patient is currently managed with morphine 2 mg/mL with a daily dose of 0.4399 mg/day. She denies any side effects to this medication however is requesting an increase due to worsening low back pain. Patient does make mention that she has been exercising a lot and is losing weight which is her goal. Her Alfredo has been reviewed and is appropriate. Physical Exam: General: Alert and oriented x3, no acute distress, pleasant and cooperative Lungs: Respirations even and unlabored, symmetrical chest expansion Eyes: PERRL Musculoskeletal: Flexion and extension of lumbar [spine] somewhat guarded secondary to pain, [antalgic gait noted] Neurological: Speech clear, no gross sensory deficit Procedure Details:: Informed consent was obtained and the risk and benefits of the procedure were explained to the patient. The patient had noninvasive monitoring placed including noninvasive blood pressure cuff and pulse oximeter. Patient's pump was interrogated. The area over the pump was cleansed with chlorhexidine as a cleansing solution. In sterile fashion the pump was accessed with a 22-gauge needle. Approximately 0.9 mls of the pump solution was removed and discarded appropriately. The pump was then refilled with 20 mL's of morphine 2 mg/mL. The needle was withdrawn and a bandage was placed over the puncture site. The infusion rate was reprogrammed and morphine 0.4838 mg/day. The patient tolerated well with no complication. Plan and Disposition:: Patient tolerated her intrathecal refill and reprogram with no complications and was discharged neurologically intact. I did discuss with the patient that we will increase her concentration to morphine 4 mg/mL at her next pump refill. Patient agrees with this plan of care. Patient did get a 10% increase at today's visit. Patient will return to clinic on or before her next intrathecal refill date. We will see the patient back in the clinic at the next intrathecal refill. Patient has been instructed to contact the clinic with any concerns before the next appointment. Dr. Guerrero has reviewed this note and agrees with this plan of care. This note was dictated using voice recognition software and make contain errors or omissions. -- It Is medically necessary for this patient to continue to have their intrathecal pump refilled at regular intervals. This patient had an intrathecal pain pump implanted after meeting criteria of chronic intractable pain for greater than 3 months and failing conservative treatments. Patient has committed and been compliant to the treatment plan and all planned follow up care. Since implantation of the intrathecal pain pump, the patient has had decreased pain and been more functional. Oral medications have been reduced including intake of oral opioids. Patient continues to do well with intrathecal therapy with decrease in pain symptoms and increase in functional status. Stopping intrathecal medications can lead to life threatening withdrawal, seizures, cardiac arrest, severe pain, and possible . Pumps that are not refilled at regular intervals can be damages and cause and need for replacement. We continually titrate dose and concentration to optimize pain relief and function. We are limited in concentration for certain drugs to safely deliver medications through the pump and stay within the recommendations from the Polyanalges[employer] Consensus Committee Guidelines. Depending on dose and concentration these pumps may need to be refilled sooner than 3 months as we titrate.
[2024-09-07 09:59] VITALS: BP 136/71; PULSE 63; RESP 16; TEMP 36.3; O2SAT 99; BMI 32.8
[2024-09-07 10:03] VITALS: BP 144/75; PULSE 58; RESP 18; O2SAT 100
[2024-09-07 10:06] VITALS: BP 144/75; PULSE 58; RESP 18; O2SAT 100
[2024-09-07 10:18] VITALS: BP 141/66; PULSE 51; RESP 16; O2SAT 100
== END 2024-09-07 10:18 | disposition home or self-care (01) ==
PROVIDERS: PCP Family Medicine; Visit Provider Nurse Practitioner Family
DX: M51.16 Intervertebral disc disorders with radiculopathy, lumbar region (principal)
CPT/HCPCS: 62370

== ENCOUNTER 2024-10-13 14:41 | Outpatient (POV) | payer OTHER, SELFPAY ==
[2024-10-13 15:01] VITALS: BP 139/75; PULSE 71; RESP 18; O2SAT 99; BMI 29.7
--- NOTE | 2024-10-13 15:07 | EXP.PAIN.PRO ---
Procedure Date: 10/13/24 Time: 15:07 Anesthesiologist:: Christi Monroy APRN Complications:: None Pre-procedure Diagnosis:: Degenerative disc disease of lumbar spine with lumbar radiculopathy symptoms Post-procedure Diagnosis:: Same Indications for Procedure:: Patient is a pleasant 39-year-old female who presents today for worsening pain. She does rate her pain a 9 out of 10. Patient denies any new falls or injuries. She does state that she is still staying very active and exercising daily and is still losing weight from our last appointment. Patient is currently managed with morphine 2 mg/mL with a daily dose of 0.4 8 3 8 mg/day. She denies any side effects from this medication. Her Alfredo has been reviewed and is appropriate. Physical Exam: General: Alert and oriented x3, no acute distress, pleasant and cooperative Lungs: Respirations even and unlabored, symmetrical chest expansion Eyes: PERRL Musculoskeletal: Flexion and extension of lumbar [spine] somewhat guarded secondary to pain, [antalgic gait noted] Neurological: Speech clear, no gross sensory deficit Procedure Details:: Informed consent was obtained and the risk and benefits of the procedure were explained to the patient. Patient did have noninvasive monitoring was placed including noninvasive blood pressure cuff and pulse oximeter. Patient's pump was interrogated and was reprogrammed to morphine 0.5327 mg/day. The patient tolerated the procedure well with no complications. Plan and Disposition:: Patient tolerated her intrathecal increase with no complications and was discharged neurologically intact. I did also get the patient set up with her PTM device with 10% of her daily dosage available every 6 hours with 4 total boluses in the 24-hour timeframe. Patient is already scheduled for her next intrathecal refill with concentration change coming up in October. Patient was counseled that she needs any additional with concentration change coming up in October. Patient was counseled if she needs any additional follow-ups between now and that visit and she can call to schedule an additional appointment. Patient agrees with this plan of care. We will see the patient back in the clinic at the next intrathecal refill. Patient has been instructed to contact the clinic with any concerns before the next appointment. Dr. Guerrero has reviewed this note and agrees with this plan of care. This note was dictated using voice recognition software and make contain errors or omissions. -- It Is medically necessary for this patient to continue to have their intrathecal pump refilled at regular intervals. This patient had an intrathecal pain pump implanted after meeting criteria of chronic intractable pain for greater than 3 months and failing conservative treatments. Patient has committed and been compliant to the treatment plan and all planned follow up care. Since implantation of the intrathecal pain pump, the patient has had decreased pain and been more functional. Oral medications have been reduced including intake of oral opioids. Patient continues to do well with intrathecal therapy with decrease in pain symptoms and increase in functional status. Stopping intrathecal medications can lead to life threatening withdrawal, seizures, cardiac arrest, severe pain, and possible . Pumps that are not refilled at regular intervals can be damages and cause and need for replacement. We continually titrate dose and concentration to optimize pain relief and function. We are limited in concentration for certain drugs to safely deliver medications through the pump and stay within the recommendations from the [employer] Guidelines. Depending on dose and concentration these pumps may need to be refilled sooner than 3 months as we titrate. A UDS is needed to verify patient's compliance with our office pain contract. This is ordered based off specific treatments related to chronic pain with the potential to abuse certain medications.
== END 2024-10-13 23:59 | disposition home or self-care (01) ==
PROVIDERS: PCP Family Medicine; Visit Provider Nurse Practitioner Family
DX: M51.16 Intervertebral disc disorders with radiculopathy, lumbar region (principal)
CPT/HCPCS: 62368; 99213; G0463

== ENCOUNTER 2024-10-29 08:36 | Day surgery (SDC) | payer OTHER, SELFPAY ==
--- NOTE | 2024-10-29 08:45 | P.PCN_ITS ---
Procedure Date: 10/29/24 Time: 09:13 Anesthesiologist:: Christi Monroy APRN Complications:: None Pre-procedure Diagnosis:: Degenerative disc disease of lumbar spine with lumbar radiculopathy symptoms Post-procedure Diagnosis:: Same Indications for Procedure:: Patient is a pleasant 39-year-old female who presents today for intrathecal refill and reprogram. Today she rates her pain a 8 out of 10. She denies any new trauma or injury. She states she has been having more back pain and is r equesting an adjustment.She is currently managed with intrathecal Morphine 2 mg/mL with a daily dose of 0.5327 mg/day.She denies any side effects from this medication. She states she has been using her bolus device and that does seem to be helping in addition. Her Alfredo has been reviewed and is appropriate. Physical Exam: General: Alert and oriented x3, no acute distress, pleasant and cooperative Lungs: Respirations even and unlabored, symmetrical chest expansion Eyes: PERRL Musculoskeletal: Flexion and extension of lumbar [spine] somewhat guarded secondary to pain, [antalgic gait noted] Neurological: Speech clear, no gross sensory deficit Procedure Details:: Informed consent was obtained and the risk and benefits of the procedure were explained to the patient. The patient had noninvasive monitoring placed including noninvasive blood pressure cuff and pulse oximeter. Patient's pump was interrogated. The area over the pump was cleansed with chlorhexidine as a cleansing solution. In sterile fashion the pump was accessed with a 22-gauge needle. Approximately 5 mls of the pump solution was removed and discarded appropriately. The pump was then refilled with 20 mL's of morphine 2 mg/mL. The needle was withdrawn and a bandage was placed over the puncture site. The infusion rate was reprogrammed and increased 10%. The patient tolerated well with no complication. Plan and Disposition:: Patient tolerated the procedure well with no complications and was discharged neurologically intact. We will plan on increasing her concentration to 5 mg/mL at her next intrathecal refill date. Patient agrees with this plan of care. Patient was counseled during that timeframe if switching concentrations that she will be able to use her bolus device. She acknowledges understanding. Patient will return to clinic on or before their next intrathecal refill date. We will see the patient back in the clinic at the next intrathecal refill. Patient has been instructed to contact the clinic with any concerns before the next appointment. Dr. Guerrero has reviewed this note and agrees with this plan of care. This note was dictated using voice recognition software and make contain errors or omissions. -- It Is medically necessary for this patient to continue to have their intrathecal pump refilled at regular intervals. This patient had an intrathecal pain pump implanted after meeting criteria of chronic intractable pain for greater than 3 months and failing conservative treatments. Patient has committed and been compliant to the treatment plan and all planned follow up care. Since implantation of the intrathecal pain pump, the patient has had decreased pain and been more functional. Oral medications have been reduced including intake of oral opioids. Patient continues to do well with intrathecal therapy with decrease in pain symptoms and increase in functional status. Stopping intrathecal medications can lead to life threatening withdrawal, seizures, cardiac arrest, severe pain, and possible . Pumps that are not refilled at regular intervals can be damages and cause and need for replacement. We continually titrate dose and concentration to optimize pain relief and function. We are limited in concentration for certain drugs to safely deliver medications through the pump and stay within the recommendations from the [employer] Guidelines. Depending on dose and concentration these pumps may need to be refilled sooner than 3 months as we titrate. A UDS is needed to verify patient's compliance with our office pain contract. This is ordered based off specific treatments related to chronic pain with the potential to abuse certain medications.
[2024-10-29 08:55] VITALS: BP 118/49; BP 119/58; PULSE 69; PULSE 73; RESP 16; RESP 18; TEMP 36.8; O2SAT 100; O2SAT 99; BMI 32.8
[2024-10-29 09:07] VITALS: BP 119/58; PULSE 69; RESP 18; O2SAT 100
[2024-10-29 09:21] VITALS: BP 114/66; PULSE 70; RESP 16; O2SAT 100
== END 2024-10-29 09:21 | disposition home or self-care (01) ==
PROVIDERS: PCP Family Medicine; Visit Provider Nurse Practitioner Family
DX: M51.16 Intervertebral disc disorders with radiculopathy, lumbar region (principal)
CPT/HCPCS: 62370

== ENCOUNTER 2024-12-03 08:58 | Day surgery (SDC) | payer OTHER, SELFPAY ==
--- NOTE | 2024-12-03 09:01 | P.PCN_ITS ---
Procedure Date: 12/03/24 Time: 09:20 Anesthesiologist:: Christi Monroy APRN Complications:: None Pre-procedure Diagnosis:: Degenerative disc disease of lumbar spine with lumbar radiculopathy symptoms Post-procedure Diagnosis:: Same Indications for Procedure:: Patient is a pleasant 39-year-old female who presents today for intrathecal refill and reprogram. Today she rates her pain a 9 out of 10. Patient denies any new injury or falls. She states she always has worsening pain coming tow ards the and of needing her pump refilled. Patient is currently managed with morphine 2 mg/mL with a daily dose of 0.5851 mg per. She denies any side effects from this medication. She does states she is still using her bolus device. Her Alfredo has been reviewed and is appropriate. Physical Exam: General: Alert and oriented x3, no acute distress, pleasant and cooperative Lungs: Respirations even and unlabored, symmetrical chest expansion Eyes: PERRL Musculoskeletal: Flexion and extension of lumbar [spine] somewhat guarded secondary to pain, [antalgic gait noted] Neurological: Speech clear, no gross sensory deficit Procedure Details:: Informed consent was obtained and the risk and benefits of the procedure were explained to the patient. The patient had noninvasive monitoring placed including noninvasive blood pressure cuff and pulse oximeter. Patient's pump was interrogated. The area over the pump was cleansed with chlorhexidine as a cleansing solution. In sterile fashion the pump was accessed with a 22-gauge needle. Approximately 7.5 mls of the pump solution was removed and discarded appropriately. The pump was then refilled with 20 mL's of morphine 5 mg/mL. The needle was withdrawn and a bandage was placed over the puncture site. The infusion rate was reprogrammed and increased 10% to morphine 0.6436 mg/day. The patient tolerated well with no complication. Plan and Disposition:: Patient tolerated the procedure well with no complications and was discharged neurologically intact. Patient was counseled that due to the fact that we are changing her concentration from 2 mg/mL to 5 mg/mL she will have a 28-hour bridge bolus timeframe and that during that time she would not be able to use her bolus device. Patient acknowledges understanding and agrees with plan of care. Patient will return to clinic on or before their next intrathecal refill date. We will see the patient back in the clinic at the next intrathecal refill. Patient has been instructed to contact the clinic with any concerns before the next appointment. Dr. Guerrero has reviewed this note and agrees with this plan of care. This note was dictated using voice recognition software and make contain errors or omissions. -- It Is medically necessary for this patient to continue to have their intrathecal pump refilled at regular intervals. This patient had an intrathecal pain pump implanted after meeting criteria of chronic intractable pain for greater than 3 months and failing conservative treatments. Patient has committed and been compliant to the treatment plan and all planned follow up care. Since implantation of the intrathecal pain pump, the patient has had decreased pain and been more functional. Oral medications have been reduced including intake of oral opioids. Patient continues to do well with intrathecal therapy with decrease in pain symptoms and increase in functional status. Stopping intrathecal medications can lead to life threatening withdrawal, seizures, cardiac arrest, severe pain, and possible . Pumps that are not refilled at regular intervals can be damages and cause and need for replacement. We continually titrate dose and concentration to optimize pain relief and function. We are limited in concentration for certain drugs to safely deliver medications through the pump and stay within the recommendations from the [employer] Guidelines. Depending on dose and concentration these pumps may need to be refilled sooner than 3 months as we titrate. A UDS is needed to verify patient's compliance with our office pain contract. This is ordered based off specific treatments related to chronic pain with the potential to abuse certain medications.
[2024-12-03 09:07] VITALS: BP 119/62; PULSE 66; RESP 16; TEMP 36.4; O2SAT 100; BMI 34.4
[2024-12-03 09:12] VITALS: BP 138/73; PULSE 67; RESP 18; O2SAT 100
[2024-12-03 09:16] VITALS: BP 138/73; PULSE 67; RESP 18; O2SAT 100
[2024-12-03 09:20] VITALS: BP 118/68; PULSE 64; RESP 16; O2SAT 100
== END 2024-12-03 09:20 | disposition home or self-care (01) ==
PROVIDERS: PCP Family Medicine; Visit Provider Nurse Practitioner Family
DX: M51.16 Intervertebral disc disorders with radiculopathy, lumbar region (principal)
CPT/HCPCS: 62370

== ENCOUNTER 2025-01-31 14:19 | Outpatient (CLI) | payer OTHER, SELFPAY ==
[2025-01-31 18:20] LABS: Basophils # 0.1 K/mm3 (0-0.2); Basophils % 0.7 % (0.1-2.0); Eosinophils # 0.2 Kmm3 (0.0-0.4); Eosinophils % 2.5 % (0.1-12.0); Hematocrit 38.7 % (37.0-47.0); Hemoglobin 12.2 g/dL (12.2-16.2); Lymphocytes # 3.3 K/mm3 (0.7-4.5); Lymphocytes % 36.6 % (10-50); Mean Corpuscular HGB Conc 31.5 g/dL (31.8-35.4); Mean Corpuscular Hemoglobin 27.1 pg (27.0-31.2); Mean Corpuscular Volume 85.8 fl (81-99); Mean Platelet Volume 8.8 fl (7.4-10.4); Monocytes # 0.4 K/mm3 (0.1-1.0); Monocytes % 4.8 % (1.7-9.3); Neutrophils # 4.9 K/mm3 (1.8-7.8); Nucleated Red Blood Cells # 0 10^3/uL; Nucleated Red Blood Cells % 0 %; Platelet Count 470 K/mm3 (142-424); Red Blood Count 4.51 M/mm3 (4.20-5.40); Red Cell Distribution Width 11.8 % (11.5-17.5); Red Cell Distribution Width-SD 36.5 fL; White Blood Count 8.9 K/mm3 (4.8-10.8)
[2025-01-31 20:08] LABS: Albumin Level 4.2 g/dl (3.5-5.0); Chloride 103 mmol/L (98-107)
[2025-01-31 20:09] LABS: Potassium 4.7 mmoL/L (3.5-5.1); Sodium 139 mmol/L (136-145)
[2025-01-31 20:11] LABS: Alanine Aminotransferase 16 U/L (12-78); Anion Gap 11.7 mEq/L (5-15); Aspartate Amino Transferase 24 U/L (14-36); Blood Urea Nitrogen 21 mg/dl (7-17); Carbon Dioxide 29 mmol/L (22.0-30.0); Estimated Glomerular Filt Rate 69 ml/min (>60); GFR (African American) 83 ML/MIN (>60)
[2025-01-31 20:12] LABS: Albumin/Globulin Ratio 1.8 (1.1-1.8); Alkaline Phosphatase 79 U/L (38-126); Calcium 9.3 mg/dl (8.4-10.2); Chol/HDL Ratio 2.7 (1-3.5); Cholesterol 163 mg/dl (140-200); Globulin 2.4 g/dL (1.3-3.2); Glucose 79 mg/dl (74-100); HDL Cholesterol 61 mg/dl (40-60); Total Protein,Serum 6.6 g/dl (6.3-8.2); Triglycerides 135 mg/dl (30-150); VLDL Cholesterol 27 mg/dL (0-40)
[2025-01-31 20:23] LABS: Direct LDL Cholesterol 84.78 mg/dL (100-129)
[2025-01-31 20:26] LABS: Bilirubin,Total 0.1 mg/dl (0.2-1.3)
== END 2025-01-31 23:59 | disposition home or self-care (01) ==
LOC: LAB.DROPOF 02-01 09:34
PROVIDERS: PCP Family Medicine; Visit Provider Family Medicine
DX: I89.0 Lymphedema, not elsewhere classified (principal)
CPT/HCPCS: 80053; 80061; 85025

== ENCOUNTER 2025-03-04 09:01 | Day surgery (SDC) | payer OTHER, SELFPAY ==
[2025-03-04 09:14] VITALS: BP 142/86; PULSE 55; RESP 16; O2SAT 99; BMI 33.6
--- NOTE | 2025-03-04 09:35 | EXP.HP ---
History of Present Illness *Admission Date: 03/04/25 *Reason for visit:: Intrathecal refill; DDD *History of present illness: Same [facility] Disclaimer: The information contained in this section may have been updated after the patient was seen, as this information can be updated by other users. Medical History Hand injury Hand pain Encounter for management of vacuum-assisted closure (VAC) of wound Obesity, morbid, BMI 40.0-49.9 Will start Funmilayo on semaglutide at 0.25 mg/week. Will increase this to 0.5 etc. over the coming weeks as long as she tolerates it. Nausea & vomiting Fall Strain of right hip Lumbar strain History of tachycardia History of schizoaffective disorder History of depression Acute exacerbation of chronic low back pain Attention deficit disorder (ADD) in adult Insomnia Urinary frequency Lumbar back pain Nasal congestion Bipolar II disorder Preop cardiovascular exam Bilateral leg pain Symptomatic irreversible pulpitis Chest pain Shoulder sprain Abnormal cardiovascular stress test Dizziness Atypical angina Bradycardia Hypokalemia Facial contusion Syncope and collapse Exposure to COVID-19 virus Fracture dislocation of ankle joint Vomiting Postoperative abdominal pain Vertigo Atypical chest pain Positive blood culture Syncope Renal insufficiency ONIEL (acute kidney injury) Nasal abscess Chest pain Strep pharyngitis Surgical History Hx of cardiac cath Hx of cholecystectomy Hx of tubal ligation History of ankle surgery Family History Other Hypertension Social History Smoking Status: Current some day smoker tobacco type: e-cigarettes second hand exposure: No alcohol intake: never substance use type: marijuana current occupational status: employed Travel in the last 8 weeks?: None household members: spouse and children housing: house current occupational exposures/hazards: No caffeine: Yes Have you lived/traveled outside [place] in past 30 days?: No Contact w/someone who lives/traveled outside [place] past 30 days?: No Exposure to someone with infectious disease in past 14 days?: No Do you have a fever (greater than 100.4 F or 38 C)?: No Have you tested positive for COVID-19?: No Exposed to someone with COVID-19 in past 14 days?: No Do you have a sore throat?: No Do you have a cough?: No Do you have any weakness?: No Do you have any diarrhea?: No Are you experiencing any unusual bleeding?: No Do you have any muscle aches/pain?: No Do you have any abdominal pain?: No Are you experiencing loss of taste or smell?: No Other Medical History Have you received the Flu Vaccine for this season: No Have you received the Pneumonia Vaccine: No Review of Systems Review of Systems Review of systems:: pertinent systems reviewed and negative unless documented below Review of systems (narrative): Review of Systems: General: No recent weight changes, no fever, no sleep disturbances Respiratory: No cough, no shortness of air, no recurring pulmonary infections Cardiovascular/peripheral vascular: No chest pain, no palpitations, no edema, no shortness of breath Gastrointestinal: No new onset incontinence, normal bowel movements reported Genitourinary: No new onset incontinence Musculoskeletal: Chronic back pain Psychiatric: [Normal mood/affect] Neurological: [Denies weakness in extremities], [denies balance issues] Meds Home Medications and Allergies Home Medications ?Medication ?Instructions ?Recorded ?Confirmed ?Type verapamil 240 mg 24 hr 240 mg PO DAILY #90 caps 06/03/24 03/04/25 Rx capsule,extended release metformin 500 mg tablet 500 mg PO DAILY #90 tabs 09/17/24 03/04/25 Rx polyethylene glycol 3350 17 17 g PO DAILY constipation #510 09/17/24 03/04/25 Rx gram/dose oral powder (Miralax) grams albuterol sulfate 90 mcg/actuation 1 inh inhalation Q6HP PRN SOA #8.5 11/05/24 03/04/25 Rx aerosol inhaler (Ventolin HFA) grams atorvastatin 10 mg tablet 10 mg PO DAILY #90 tabs 11/05/24 03/04/25 Rx bisoprolol fumarate 10 mg tablet 10 mg PO DAILY #90 tabs 11/05/24 03/04/25 Rx docusate sodium 100 mg capsule 100 mg PO DAILY constipation #90 11/05/24 03/04/25 Rx caps fluticasone propionate 50 1 spray intranasal DAILY #16 grams 11/05/24 03/04/25 Rx mcg/actuation nasal spray,suspension ondansetron 4 mg disintegrating 4 mg PO Q8H PRN nausea and 11/05/24 03/04/25 Rx tablet vomiting #10 tabs atomoxetine 100 mg capsule 100 mg PO DAILY #30 caps 12/09/24 03/04/25 Rx (Strattera) lamotrigine 250 mg tablet,extended 250 mg PO DAILY #30 tabs 12/09/24 03/04/25 Rx release 24 hr (Lamictal XR) brexpiprazole 2 mg tablet (Rexulti) 2 mg PO DAILY #30 tabs 01/24/25 03/04/25 Rx trazodone 100 mg tablet 200 mg (2 x 100 mg) PO DAILY #60 01/24/25 03/04/25 Rx tabs bupropion HCl 300 mg 24 hr tablet, 300 mg PO DAILY #90 tabs 01/31/25 03/04/25 Rx extended release loratadine 10 mg disintegrating 10 mg PO DAILY 01/31/25 03/04/25 History tablet nicotine 7 mg/24 hr daily 1 patch transdermal DAILY #14 ea 01/31/25 03/04/25 Rx transdermal patch omeprazole 40 mg capsule,delayed 40 mg PO DAILY #90 caps 01/31/25 03/04/25 Rx release spironolactone 50 mg tablet 50 mg PO DAILY #90 tabs 01/31/25 03/04/25 Rx (Aldactone) furosemide 20 mg tablet (Lasix) 20 mg PO DAILY PRN edema #30 tabs 02/28/25 03/04/25 Rx New Prescriptions to Start Prescriptions: Allergies Allergy/AdvReac Type Severity Reaction Status Date / Time naloxegol (From Flipiture) Allergy Intermediate Numbness Verified 02/28/25 12:55 aspirin (ASPIRIN) Allergy Unknown Hives Verified 02/28/25 12:55 iodine (IODINE) Allergy Unknown Hives Verified 02/28/25 12:55 labetalol (LABETALOL) Allergy Unknown Hives Verified 02/28/25 12:55 Penicillins (PENICILLINS) Allergy Unknown Verified 02/28/25 12:55 Sulfa (Sulfonamide Allergy Unknown Verified 02/28/25 12:55 Antibiotics) (SULFA (SULFONAMIDE ANTIBIOTICS)) triamcinolone (TRIAMCINOLONE) Allergy Unknown Verified 02/28/25 12:55 naproxen Allergy Verified 02/28/25 12:55 shellfish derived Allergy Hives Verified 02/28/25 12:55 amitriptyline AdvReac Mild Verified 02/28/25 12:55 Exam Data for Last 24 hours Vital signs and Labs for Last 24 Hours: Pulse Resp BP Pulse Ox O2 Del Method 55 L 16 142/86 H 99 Room Air 03/04/25 09:14 03/04/25 09:14 03/04/25 09:14 03/04/25 09:14 03/04/25 09:14 I & O for Last 24 hours: Intake & Output 03/01/25 03/02/25 03/03/25 03/04/25 23:59 23:59 23:59 23:59 Weight 215 lb Constitutional Constitutional: no acute distress *Routine HEENT Exam Head: Present normocephalic and atraumatic Eye: Present PERRL ENT: Present mucous membranes moist *Routine Neck Exam Neck: Present supple *Routine Respiratory Exam Respiratory: Present CTA bilaterally *Routine Cardiovascular Exam Cardiovascular: Present RRR *Routine Abdominal Exam Abdominal: Present soft *Routine Rectal Exam Rectal:: deferred *Routine Genitalia Exam Genitalia:: normal female Routine Back/Spine/Pelvis Exam Back/Spine: Present pain with flexion *Routine Skin Exam Skin: Present intact and dry *Routine Neurological Exam Neurological: Present alert and oriented X3 Routine Psychiatric Exam Psychiatric: Present normal affect and normal thought process Assessment and Plan *Assessment and plan (1) Low back pain: Status: Acute Category: Medical Code(s): M54.50 - Low back pain, unspecified Plan Patient has been instructed to contact the clinic with any concerns before the next appointment. Dr. Guerrero has reviewed this note and agrees with this plan of care. This note was dictated using voice recognition software and make contain errors or omissions. All injections are used with Lidocaine, Bupivacaine and dexamethasone. Occasionally urine drug screen is needed to verify patient's compliance with our office pain contract. This is ordered based off specific treatments related to chronic pain with the potential to abuse certain medications.
--- NOTE | 2025-03-04 09:38 | EXP.PAIN.PRO ---
Procedure Date: 03/04/25 Time: 09:48 Anesthesiologist:: Christi Monroy APRN Complications:: None Pre-procedure Diagnosis:: Degenerative disc disease of lumbar spine with lumbar radiculopathy symptoms, chronic pain syndrome Post-procedure Diagnosis:: Same Indications for Procedure:: Patient is a pleasant 39-year-old female who presents today for intrathecal refill and reprogram. Today she rates her pain an 8 out of 10. She denies any new trauma or injury. Patient does state overall she is still doing her daily exercise regiment with running and going to the gym daily. Patient is currently managed with morphine 5 mg/mL with a daily dose of 0.6436 mg/day. She denies any side effects. Her Alfredo has been reviewed and is appropriate. Physical Exam: General: Alert and oriented x3, no acute distress, pleasant and cooperative Lungs: Respirations even and unlabored, symmetrical chest expansion Eyes: PERRL Musculoskeletal: Flexion and extension of lumbar [spine] somewhat guarded secondary to pain, [antalgic gait noted] Neurological: Speech clear, no gross sensory deficit Procedure Details:: Informed consent was obtained and the risk and benefits of the procedure were explained to the patient. The patient had noninvasive monitoring placed including noninvasive blood pressure cuff and pulse oximeter. Patient's pump was interrogated. The area over the pump was cleansed with chlorhexidine as a cleansing solution. In sterile fashion the pump was accessed with a 22-gauge needle. Approximately 6.5 mls of the pump solution was removed and discarded appropriately. The pump was then refilled with 20 mL's of morphine 5 mg/mL. The needle was withdrawn and a bandage was placed over the puncture site. The infusion rate was reprogrammed and increased to morphine 0.7732 mg/day. The patient tolerated well with no complication. Plan and Disposition:: Patient tolerated the procedure well with no complications and was discharged neurologically intact. Patient will return to clinic on or before their next intrathecal refill date. We will see the patient back in the clinic at the next intrathecal refill. Patient has been instructed to contact the clinic with any concerns before the next appointment. Dr. Guerrero has reviewed this note and agrees with this plan of care. This note was dictated using voice recognition software and make contain errors or omissions. -- It Is medically necessary for this patient to continue to have their intrathecal pump refilled at regular intervals. This patient had an intrathecal pain pump implanted after meeting criteria of chronic intractable pain for greater than 3 months and failing conservative treatments. Patient has committed and been compliant to the treatment plan and all planned follow up care. Since implantation of the intrathecal pain pump, the patient has had decreased pain and been more functional. Oral medications have been reduced including intake of oral opioids. Patient continues to do well with intrathecal therapy with decrease in pain symptoms and increase in functional status. Stopping intrathecal medications can lead to life threatening withdrawal, seizures, cardiac arrest, severe pain, and possible . Pumps that are not refilled at regular intervals can be damages and cause and need for replacement. We continually titrate dose and concentration to optimize pain relief and function. We are limited in concentration for certain drugs to safely deliver medications through the pump and stay within the recommendations from the Polyanalgesic Consensus Committee Guidelines. Depending on dose and concentration these pumps may need to be refilled sooner than 3 months as we titrate. A UDS is needed to verify patient's compliance with our office pain contract. This is ordered based off specific treatments related to chronic pain with the potential to abuse certain medications.
[2025-03-04 09:40] VITALS: BP 124/50; PULSE 56; RESP 18; O2SAT 100
[2025-03-04 09:57] VITALS: BP 111/66; PULSE 54; RESP 16; O2SAT 100
== END 2025-03-04 09:57 | disposition home or self-care (01) ==
PROVIDERS: PCP Family Medicine; Visit Provider Nurse Practitioner Family
DX: M51.16 Intervertebral disc disorders with radiculopathy, lumbar region (principal); G89.4 Chronic pain syndrome; E66.813 Obesity, class 3; F25.9 Schizoaffective disorder, unspecified; F98.8 Other specified behavioral and emotional disorders with onset usually occurring in childhood and adolescence; G47.00 Insomnia, unspecified; F31.81 Bipolar II disorder; R35.0 Frequency of micturition; F17.290 Nicotine dependence, other tobacco product, uncomplicated; Z79.84 Long term (current) use of oral hypoglycemic drugs; Z79.899 Other long term (current) drug therapy; Z79.891 Long term (current) use of opiate analgesic; Z79.51 Long term (current) use of inhaled steroids; Z88.8 Allergy status to other drugs, medicaments and biological substances; Z88.3 Allergy status to other anti-infective agents; Z88.2 Allergy status to sulfonamides; Z91.013 Allergy to seafood; Z68.41 Body mass index [BMI] 40.0-44.9, adult; Z98.51 Tubal ligation status; Z90.49 Acquired absence of other specified parts of digestive tract; Z88.0 Allergy status to penicillin
CPT/HCPCS: 62370

== ENCOUNTER 2025-05-13 07:48 | Day surgery (SDC) | payer OTHER, SELFPAY ==
--- NOTE | 2025-05-13 08:38 | EXP.PM.HP ---
History of Present Illness *Admission Date: 05/13/25 *Reason for visit:: Intrathecal refill; DDD *History of present illness: Same [facility] Disclaimer: The information contained in this section may have been updated after the patient was seen, as this information can be updated by other users. Medical History Hand injury Hand pain Encounter for management of vacuum-assisted closure (VAC) of wound Obesity, morbid, BMI 40.0-49.9 Will start Funmilayo on semaglutide at 0.25 mg/week. Will increase this to 0.5 etc. over the coming weeks as long as she tolerates it. Nausea & vomiting Fall Strain of right hip Lumbar strain History of tachycardia History of schizoaffective disorder History of depression Acute exacerbation of chronic low back pain Attention deficit disorder (ADD) in adult Insomnia Urinary frequency Lumbar back pain Nasal congestion Bipolar II disorder Preop cardiovascular exam Bilateral leg pain Symptomatic irreversible pulpitis Chest pain Shoulder sprain Abnormal cardiovascular stress test Dizziness Atypical angina Bradycardia Hypokalemia Facial contusion Syncope and collapse Exposure to COVID-19 virus Fracture dislocation of ankle joint Vomiting Postoperative abdominal pain Vertigo Atypical chest pain Positive blood culture Syncope Renal insufficiency ONIEL (acute kidney injury) Nasal abscess Chest pain Strep pharyngitis Surgical History Hx of cardiac cath Hx of cholecystectomy Hx of tubal ligation History of ankle surgery Family History Other Hypertension Social History Smoking Status: Current some day smoker tobacco type: e-cigarettes second hand exposure: No alcohol intake: never substance use type: marijuana current occupational status: employed Travel in the last 8 weeks?: None household members: spouse and children housing: house current occupational exposures/hazards: No caffeine: Yes Have you lived/traveled outside [place] in past 30 days?: No Contact w/someone who lives/traveled outside [place] past 30 days?: No Exposure to someone with infectious disease in past 14 days?: No Do you have a fever (greater than 100.4 F or 38 C)?: No Have you tested positive for COVID-19?: No Exposed to someone with COVID-19 in past 14 days?: No Do you have a sore throat?: No Do you have a cough?: No Do you have any weakness?: No Do you have any diarrhea?: No Are you experiencing any unusual bleeding?: No Do you have any muscle aches/pain?: No Do you have any abdominal pain?: No Are you experiencing loss of taste or smell?: No Other Medical History Have you received the Flu Vaccine for this season: No Have you received the Pneumonia Vaccine: No Review of Systems Review of Systems Review of systems:: pertinent systems reviewed and negative unless documented below Review of systems (narrative): Review of Systems: General: No recent weight changes, no fever, no sleep disturbances Respiratory: No cough, no shortness of air, no recurring pulmonary infections Cardiovascular/peripheral vascular: No chest pain, no palpitations, no edema, no shortness of breath Gastrointestinal: No new onset incontinence, normal bowel movements reported Genitourinary: No new onset incontinence Musculoskeletal: Chronic back pain Psychiatric: [Normal mood/affect] Neurological: [Denies weakness in extremities], [denies balance issues] Meds Home Medications and Allergies Home Medications ?Medication ?Instructions ?Recorded ?Confirmed ?Type verapamil 240 mg 24 hr 240 mg PO DAILY #90 caps 06/03/24 04/20/25 Rx capsule,extended release metformin 500 mg tablet 500 mg PO DAILY #90 tabs 09/17/24 04/20/25 Rx polyethylene glycol 3350 17 17 g PO DAILY constipation #510 09/17/24 04/20/25 Rx gram/dose oral powder (Miralax) grams albuterol sulfate 90 mcg/actuation 1 inh inhalation Q6HP PRN SOA #8.5 11/05/24 04/20/25 Rx aerosol inhaler (Ventolin HFA) grams atorvastatin 10 mg tablet 10 mg PO DAILY #90 tabs 11/05/24 04/20/25 Rx bisoprolol fumarate 10 mg tablet 10 mg PO DAILY #90 tabs 11/05/24 04/20/25 Rx docusate sodium 100 mg capsule 100 mg PO DAILY constipation #90 11/05/24 04/20/25 Rx caps fluticasone propionate 50 1 spray intranasal DAILY #16 grams 11/05/24 04/20/25 Rx mcg/actuation nasal spray,suspension ondansetron 4 mg disintegrating 4 mg PO Q8H PRN nausea and 11/05/24 04/20/25 Rx tablet vomiting #10 tabs loratadine 10 mg disintegrating 10 mg PO DAILY 01/31/25 04/20/25 History tablet nicotine 7 mg/24 hr daily 1 patch transdermal DAILY #14 ea 01/31/25 04/20/25 Rx transdermal patch omeprazole 40 mg capsule,delayed 40 mg PO DAILY #90 caps 01/31/25 04/20/25 Rx release spironolactone 50 mg tablet 50 mg PO DAILY #90 tabs 01/31/25 04/20/25 Rx (Aldactone) furosemide 20 mg tablet (Lasix) 20 mg PO DAILY PRN edema #30 tabs 02/28/25 04/20/25 Rx atomoxetine 100 mg capsule 100 mg PO DAILY #30 caps 03/17/25 04/20/25 Rx (Strattera) brexpiprazole 1 mg tablet 4 mg (4 x 1 mg) PO DAILY #30 tabs 03/17/25 04/20/25 Rx bupropion HCl 150 mg 24 hr tablet, 150 mg PO DAILY #30 tabs 03/17/25 04/20/25 Rx extended release lamotrigine 300 mg tablet,extended 300 mg PO DAILY #30 tabs 03/17/25 04/20/25 Rx release 24 hr trazodone 100 mg tablet 200 mg (2 x 100 mg) PO DAILY #60 03/17/25 04/20/25 Rx tabs atomoxetine 60 mg capsule 60 mg PO DAILY #30 caps 04/21/25 Rx brexpiprazole 4 mg tablet (Rexulti) 4 mg PO DAILY #30 tabs 04/21/25 Rx New Prescriptions to Start Prescriptions: Allergies Allergy/AdvReac Type Severity Reaction Status Date / Time naloxegol (From DiabetOmics) Allergy Intermediate Numbness Verified 04/20/25 13:02 aspirin (ASPIRIN) Allergy Unknown Hives Verified 04/20/25 13:02 iodine (IODINE) Allergy Unknown Hives Verified 04/20/25 13:02 labetalol (LABETALOL) Allergy Unknown Hives Verified 04/20/25 13:02 Penicillins (PENICILLINS) Allergy Unknown Verified 04/20/25 13:02 Sulfa (Sulfonamide Allergy Unknown Verified 04/20/25 13:02 Antibiotics) (SULFA (SULFONAMIDE ANTIBIOTICS)) triamcinolone (TRIAMCINOLONE) Allergy Unknown Verified 04/20/25 13:02 naproxen Allergy Verified 04/20/25 13:02 shellfish derived Allergy Hives Verified 04/20/25 13:02 amitriptyline AdvReac Mild Verified 04/20/25 13:02 Exam Constitutional Constitutional: no acute distress *Routine HEENT Exam Head: Present normocephalic and atraumatic Eye: Present PERRL ENT: Present mucous membranes moist *Routine Neck Exam Neck: Present supple *Routine Respiratory Exam Respiratory: Present CTA bilaterally *Routine Cardiovascular Exam Cardiovascular: Present RRR *Routine Abdominal Exam Abdominal: Present soft *Routine Rectal Exam Rectal:: deferred *Routine Genitalia Exam Genitalia:: deferred Routine Back/Spine/Pelvis Exam Back/Spine: Present pain with flexion *Routine Skin Exam Skin: Present intact, dry and warm *Routine Neurological Exam Neurological: Present alert and oriented X3 Routine Psychiatric Exam Psychiatric: Present normal affect and normal thought process Assessment and Plan *Assessment and plan (1) Bulging lumbar disc: Status: Acute Category: Medical Code(s): M51.369 - Other intervertebral disc degeneration, lumbar region without mention of lumbar back pain or lower extremity pain (2) Low back pain: Status: Acute Category: Medical Code(s): M54.50 - Low back pain, unspecified (3) Lumbar disc disease: Status: Acute Category: Medical Code(s): M51.9 - Unspecified thoracic, thoracolumbar and lumbosacral intervertebral disc disorder
--- NOTE | 2025-05-13 08:41 | P.PCN_ITS ---
Procedure Date: 05/13/25 Time: 09:01 Anesthesiologist:: Christi Monroy APRN Complications:: None Pre-procedure Diagnosis:: Degenerative disc disease of lumbar spine with lumbar radiculopathy symptoms, chronic pain syndrome Post-procedure Diagnosis:: Same Indications for Procedure:: Patient is a pleasant 39-year-old female who presents today for intrathecal refill and reprogram. She rates her pain today a 9 out of 10. Patient does state that she is having a lot more neck related pain that is going on all summer long if not longer. Patient does have a lot of concerns of whether or not she is having more significant narrowing and would like to see about additional imaging. She states the pain is fairly constant and is interfering with her ability perform activities of daily living such as cooking and cleaning. She is currently managed with morphine 5 mg/mL with a daily dose of 0. 7732 mg/day. She denies any side effects. Her Alfredo has been reviewed and is appropriate. Physical Exam: General: Alert and oriented x3, no acute distress, pleasant and cooperative Lungs: Respirations even and unlabored, symmetrical chest expansion Eyes: PERRL Musculoskeletal: Flexion and extension of Cervical[spine] somewhat guarded secondary to pain, [antalgic gait noted] Neurological: Speech clear, no gross sensory deficit Procedure Details:: Informed consent was obtained and the risk and benefits of the procedure were explained to the patient. The patient had noninvasive monitoring placed including noninvasive blood pressure cuff and pulse oximeter. Patient's pump was interrogated. The area over the pump was cleansed with chlorhexidine as a cleansing solution. . In sterile fashion the pump was accessed with a 22-gauge needle. Approximately 8 mls of the pump solution was removed and discarded appropriately. The pump was then refilled with 20 mL's of Morphine 5 mg/mL. The needle was withdrawn and a bandage was placed over the puncture site. The infusion rate was reprogrammed and Increased to morphine 0.8502 mg/day. The patient tolerated well with no complication. Plan and Disposition:: Patient tolerated the procedure well with no complications and was discharged neurologically intact. I did review over with the patient that I will put in an x-ray order for her cervical spine and proceed forward with an MRI without contrast of her cervical spine. Patient will return to clinic in 1 month to review over the image results. We will also give her the next refill date. Patient has continued conservative therapy including oral medication, heat and ice, topicals, at home stretching exercises for longer than 12 weeks. Patient does go to the gym daily and does walk several miles daily with no additional change in her neck related symptoms. Patient will return to clinic on or before their next intrathecal refill date. We will see the patient back in the clinic at the next intrathecal refill. Patient has been instructed to contact the clinic with any concerns before the next appointment. Dr. Guerrero has reviewed this note and agrees with this plan of care. This note was dictated using voice recognition software and make contain errors or omissions. -- It Is medically necessary for this patient to continue to have their intrathecal pump refilled at regular intervals. This patient had an intrathecal pain pump implanted after meeting criteria of chronic intractable pain for greater than 3 months and failing conservative treatments. Patient has committed and been compliant to the treatment plan and all planned follow up care. Since implantation of the intrathecal pain pump, the patient has had decreased pain and been more functional. Oral medications have been reduced including intake of oral opioids. Patient continues to do well with intrathecal therapy with decrease in pain symptoms and increase in functional status. Stopping intrathecal medications can lead to life threatening withdrawal, seizures, cardiac arrest, severe pain, and possible . Pumps that are not refilled at regular intervals can be damages and cause and need for replacement. We continually titrate dose and concentration to optimize pain relief and function. We are limited in concentration for certain drugs to safely deliver medications through the pump and stay within the recommendations from the Polyanalgesic Consensus Committee Guidelines. Depending on dose and concentration these pumps may need to be refilled sooner than 3 months as we titrate. A UDS is needed to verify patient's compliance with our office pain contract. This is ordered based off specific treatments related to chronic pain with the potential to abuse certain medications.
[2025-05-13 08:53] VITALS: BP 147/79; BP 147/97; PULSE 56; RESP 18; O2SAT 98; BMI 36.0
[2025-05-13 09:09] VITALS: BP 146/64; PULSE 54; RESP 16; O2SAT 98
== END 2025-05-13 09:09 | disposition home or self-care (01) ==
PROVIDERS: PCP Family Medicine; Visit Provider Nurse Practitioner Family
DX: Z45.1 Encounter for adjustment and management of infusion pump (principal); M51.369 Other intervertebral disc degeneration, lumbar region without mention of lumbar back pain or lower extremity pain; M54.50 Low back pain, unspecified; M51.16 Intervertebral disc disorders with radiculopathy, lumbar region; G89.4 Chronic pain syndrome; M54.2 Cervicalgia; E66.01 Morbid (severe) obesity due to excess calories; Z68.36 Body mass index [BMI] 36.0-36.9, adult; F17.290 Nicotine dependence, other tobacco product, uncomplicated; F90.9 Attention-deficit hyperactivity disorder, unspecified type; F25.9 Schizoaffective disorder, unspecified; Z79.84 Long term (current) use of oral hypoglycemic drugs; Z79.899 Other long term (current) drug therapy; Z88.8 Allergy status to other drugs, medicaments and biological substances; Z88.6 Allergy status to analgesic agent; Z91.013 Allergy to seafood; Z88.0 Allergy status to penicillin; Z88.2 Allergy status to sulfonamides
CPT/HCPCS: 62370